=== PATIENT | female | born 1955 | race Caucasian/White ===

== ENCOUNTER → 2016-10-15 | Outpatient (CLI) | payer MEDICARE, BC ==
[~2016-10-15] MED LIST: /CELE20CA; /CELE20CA OR; ACET65TA; BACITAB3 PO; BUDE150T PO; BUPR15TA; CELE40TA PO; CELEXA; CIPR500T4 OR; CITA20TA4 PO; CITALOPRAM; COLA100C2; DESYREL PO; DEXILANT PO; IBUP600T26 PO; K-TA10TA2 PO; KEFL500C; LEVA500T PO; LORATADINE PO; MAALSUS; MACR100C3 PO; MAGN400T2 PO; METF1000 PO; METFORMIN PO; NEUR300C PO; NIAC250T3 PO; OMEP20TA PO; OMEP20TA7; PERC5TAB8; PHEN-239 PO; PREMARIVAG VAGINALLY; RANI150C PO; THERGRAN PO; TRAZ100T; TRAZ100T PO; TRAZ100T4 PO; TYLENOL #3; VENL100T PO; VICO5TAB; VICO5TAB OR; VITA50003 PO; VITA500T OR; VITAMIN D2 PO; ZANT150T; ZOFR4SOL PO; ZOLP5TAB PO
[2016-10-15 19:04] LABS: CALCIUM LEVEL 8.7 MG/DL (8.5-10.1); CREATININE FOR GFR 1.01 MG/DL (0.55-1.02); GLOMERULAR FILTRATION RATE 59.9 (>51); MAGNESIUM LEVEL 1.7 MG/DL (1.8-2.4); POTASSIUM SERUM 4.1 MEQ/L (3.5-5.1)
[2016-10-15 20:07] LABS: BASO # 0.1 K/mm3 (0.0-0.2); EOS # 0.4 K/mm3 (0.0-0.50); EOS % 5.1 % (0.0-3.0); LARGE UNSTAINED CELL # 0.1 K/mm3 (0.0-0.4); LARGE UNSTAINED CELL % 1.9 % (0.0-4.0); LYMPH # 2.3 K/mm3 (1.5-4.5); MEAN CORPUSCULAR HEMOGLOBIN 30.8 pg (27.0-33.0); MEAN CORPUSCULAR HGB CONC 33.7 g/dl (32.0-36.5); MEAN CORPUSCULAR VOLUME 91.3 fl (80.0-96.0); MONO # 0.5 K/mm3 (0.0-0.8); NEUTROPHILS # 3.8 K/mm3 (1.8-7.7); NEUTROPHILS % 53.9 % (36.0-66.0); PLATELET COUNT, AUTOMATED 281 k/mm3 (150-450); RED CELL DISTRIBUTION WIDTH 12.9 % (11.5-14.5)
== END ==
LOC: M WUC 11:06
PROVIDERS: ATTEND Nurse Practitioner Family
DX: E11.9 Type 2 diabetes mellitus without complications (principal); E83.42 Hypomagnesemia

== ENCOUNTER → 2016-10-30 | Day surgery (SDC) | payer MEDICARE, BC ==
[~2016-10-30] VITALS: Ht 170.2 cm; Wt 106.6 kg
[~2016-10-30] MED LIST changes: +EPINEPHrine 1MG/ML INJ 30ML MD-VIAL As Ordered ONE; +GLYCOPYRROLATE INJ 0.2 MG/ML 2 ML VIAL As Ordered ONE; +HYDROmorphone HCL 2 MG/ML 1ML VIAL (J1170) As Ordered ONE; +LABETALOL HCL 100 MG/20 ML VIAL As Ordered ONE; +LIDOCAINE 2% INJ 100 MG/5 ML SDV (FOR ANES.) As Ordered ONE; +LIDOCAINE W/EPINEPHRINE 1% 20ML VIAL As Ordered ONE; +LR 1,000 ML IV SCH; +METHYLENE BLUE 0.5% (5MG/ML) 10 ML AMP (PROVAYBLUE)(Q9968 PER 1MG) As Ordered ONE; +MIDAZOLAM INJ 2 MG/2 ML VIAL (J2250) As Ordered ONE; +NEOSTIGMINE 1MG/ML 5 ML SYRINGE (J2710) As Ordered ONE; +NORCO, ANEXSIA 5/325MG TABLET (HYDROcodone/ACETAMINOPHEN) As Ordered ONE; +NORCO, ANEXSIA 5/325MG TABLET (HYDROcodone/ACETAMINOPHEN) PO PRN; +ONDANSETRON 4MG/2ML VIAL (J2405) As Ordered ONE; +ONDANSETRON 4MG/2ML VIAL (J2405) IV PRN; +PHENYLephrine HCL 500 MCG/5 ML (100MCG/ML) SYRINGE (J2370) As Ordered ONE; +PROPOFOL 200 MG/20 ML VIAL As Ordered ONE; +ROCURONIUM BROMIDE 50 MG/5 ML VIAL As Ordered ONE; +SODIUM CHLORIDE 0.9% NASAL GEL 15MG (AYR) As Ordered ONE; +dexameTHASONE 4 MG/ML 1ML VIAL (J1100) IV ONE; +fentaNYL 100 MCG/2 ML INJECTION (J3010) As Ordered ONE; +fentaNYL 100 MCG/2 ML INJECTION (J3010) IV PRN
[2016-10-30 19:25] VITALS: BP 143/89
--- NOTE | 2016-11-13 06:06 | RO ---
DATE OF PROCEDURE: 10/30/2016 PREOPERATIVE DIAGNOSES: Chronic maxillary sinusitis, chronic ethmoid sinusitis, and deviated nasal septum. POSTOPERATIVE DIAGNOSES: Chronic maxillary sinusitis, chronic ethmoid sinusitis, and deviated nasal septum. PROCEDURE: 1. Endoscopic septoplasty. 2. Bilateral endoscopic maxillary antrostomy with soft tissue removal. 3. Bilateral anterior and posterior ethmoidectomy. 4. Implantation of bilateral Propel stents. SURGEON: Sha Rankin MD TRANSFER PROFESSOR: ANESTHESIA: General. CLINICAL PREAMBLE: This 60-year-old woman presented to the office with history of chronic maxillary sinusitis unresponsive to medical therapy. Complete opacification of the left maxillary sinus as well as mucosal thickening of the rest of the paranasal sinuses. There was deviation of the nasal turbinate to the left side as well. Management options including surgery listed above have been discussed. The patient understood and consented to the procedure. DESCRIPTION OF PROCEDURE: Patient was identified in preoperative holding and brought to the operating room in stable condition. In supine position on the operating table, patient received general anesthesia followed by orotracheal intubation without incident. Patient prepped and draped in the usual fashion for the procedure. Both eyes were lubricated and protected using Tegaderm. Pledgets soaked in 1:1000 epinephrine were inserted into each side of the nasal cavity. After a waiting period, both pledgets were removed using 0-degree nasal endoscope. Both sides of the nasal cavity were inspected. Deviation of the nasal septum was noted in the left nasal cavity. The deviated portion of the nasal septum was then infiltrated from the left side of the nasal cavity. Incision was made followed by raising the mucoperichondrial/mucoperiosteal flap on the deviated portion of the nasal septum. The deviated portion of the nasal septum was then successfully resected and the nasal septum returned to a midline position to afford surgical access. The anterior surfaces of the middle nasal turbinates were infiltrated with 1% lidocaine with 1:100,000 epinephrine. Both uncinates were also similarly injected as well. The right uncinate was first isolated and resected. The polypoid tissue around the right maxillary antrum was also resected using side-biting forceps. Right maxillary antrostomy was performed. The right ethmoidalis bulla was identified and resected using Blakesley forceps. Additional diseased anterior ethmoid air cells were then removed. Basal lamella was identified and penetrated. Posterior ethmoid air cells with polypoid degeneration were resected using the cutting forceps. Attention was turned to the left nasal cavity. The left uncinectomy was performed. The polypoid tissue around the left maxillary antrum was also resected. Copious amount of purulent discharge was encountered upon the resection of polypoid tissue. Left maxillary antrostomy was performed. The left maxillary sinus was then irrigated to display the purulent discharge material from the left maxillary sinus cavity. The left ethmoidalis bulla was taken down. The anterior ethmoid air cells were also resected. Basal lamella was identified and was penetrated with resection of the diseased posterior ethmoid air cells using cutting forceps. Complete hemostasis was observed upon placing cottonoid pledgets soaked in 1:1000 epinephrine into the middle nasal meatus. The Propel stents were then placed into left and right middle nasal meatus to allow medialization of both middle nasal turbinates. At the end of the procedure, sponge and instrument counts were correct. No complication was encountered. Estimated blood loss was approximately 50 mL. General anesthesia was reversed, and patient was extubated and brought to recovery room in stable condition. In recovery area, patient exhibited full and symmetrical extraocular motion with no evidence of periorbital ecchymosis.
== END | disposition home or self-care (01) ==
LOC: M SDC 08:47
PROVIDERS: ATTEND Otolaryngology
DX: J32.0 Chronic maxillary sinusitis (principal); J32.2 Chronic ethmoidal sinusitis; J34.2 Deviated nasal septum; E11.9 Type 2 diabetes mellitus without complications; K21.9 Gastro-esophageal reflux disease without esophagitis; L92.0 Granuloma annulare; F32.9 Major depressive disorder, single episode, unspecified; G47.30 Sleep apnea, unspecified; E83.42 Hypomagnesemia; Z88.5 Allergy status to narcotic agent; Z79.899 Other long term (current) drug therapy; Z79.84 Long term (current) use of oral hypoglycemic drugs
CPT/HCPCS: 30520; 31255; 31267; 88300; 88305; C2625; J1100; J1170; J2250; J2370; J2405; J2710; J3010; Q9968

== ENCOUNTER 2016-11-15 22:52 | Emergency (ER) | payer MEDICARE, BC ==
[~2016-11-15] VITALS: Ht 172.7 cm; Wt 108.9 kg
[~2016-11-15 22:52] MED LIST changes: -EPINEPHrine 1MG/ML INJ 30ML MD-VIAL As Ordered ONE; -GLYCOPYRROLATE INJ 0.2 MG/ML 2 ML VIAL As Ordered ONE; -HYDROmorphone HCL 2 MG/ML 1ML VIAL (J1170) As Ordered ONE; -LABETALOL HCL 100 MG/20 ML VIAL As Ordered ONE; -LIDOCAINE 2% INJ 100 MG/5 ML SDV (FOR ANES.) As Ordered ONE; -LIDOCAINE W/EPINEPHRINE 1% 20ML VIAL As Ordered ONE; -LR 1,000 ML IV SCH; -METHYLENE BLUE 0.5% (5MG/ML) 10 ML AMP (PROVAYBLUE)(Q9968 PER 1MG) As Ordered ONE; -MIDAZOLAM INJ 2 MG/2 ML VIAL (J2250) As Ordered ONE; -NEOSTIGMINE 1MG/ML 5 ML SYRINGE (J2710) As Ordered ONE; -NORCO, ANEXSIA 5/325MG TABLET (HYDROcodone/ACETAMINOPHEN) As Ordered ONE; -NORCO, ANEXSIA 5/325MG TABLET (HYDROcodone/ACETAMINOPHEN) PO PRN; -ONDANSETRON 4MG/2ML VIAL (J2405) As Ordered ONE; -ONDANSETRON 4MG/2ML VIAL (J2405) IV PRN; -PHENYLephrine HCL 500 MCG/5 ML (100MCG/ML) SYRINGE (J2370) As Ordered ONE; -PROPOFOL 200 MG/20 ML VIAL As Ordered ONE; -ROCURONIUM BROMIDE 50 MG/5 ML VIAL As Ordered ONE; -SODIUM CHLORIDE 0.9% NASAL GEL 15MG (AYR) As Ordered ONE; -dexameTHASONE 4 MG/ML 1ML VIAL (J1100) IV ONE; -fentaNYL 100 MCG/2 ML INJECTION (J3010) As Ordered ONE; -fentaNYL 100 MCG/2 ML INJECTION (J3010) IV PRN
[2016-11-15] MEDS ORDERED: LEVO500T32 PO (23:09)
[2016-11-16] MEDS ORDERED: AUGMENTIN 875 MG TAB PO ONE (05:00)
[2016-11-16] MEDS ORDERED: AUGM500T34 PO (05:00)
[2016-11-16 05:23] VITALS: BP 133/85
== END 2016-11-16 05:29 | disposition home or self-care (01) ==
LOC: M ED 23:50
DX: L02.03 Carbuncle of face (principal); E11.9 Type 2 diabetes mellitus without complications; K21.9 Gastro-esophageal reflux disease without esophagitis; F32.9 Major depressive disorder, single episode, unspecified; Z79.899 Other long term (current) drug therapy; Z79.84 Long term (current) use of oral hypoglycemic drugs; Z79.2 Long term (current) use of antibiotics; Z88.8 Allergy status to other drugs, medicaments and biological substances; Z88.5 Allergy status to narcotic agent

== ENCOUNTER → 2016-11-23 | Outpatient (REF) | payer MEDICARE, BC ==
[~2016-11-23] MED LIST changes: +AUGM500T34 PO; +LEVO500T32 PO
== END ==
LOC: EEVIPCON 12:13 → M LAB REF 12:13
PROVIDERS: ATTEND Otolaryngology
DX: J32.0 Chronic maxillary sinusitis (principal)

== ENCOUNTER → 2016-12-19 | Outpatient (CLI) | payer MEDICARE, BC ==
[2016-12-19 17:52] LABS: BASO # 0.1 K/mm3 (0.0-0.2); BASO % 0.9 % (0.0-1.0); EOS # 0.6 K/mm3 (0.0-0.50); EOS % 4.9 % (0.0-3.0); LARGE UNSTAINED CELL # 0.2 K/mm3 (0.0-0.4); LARGE UNSTAINED CELL % 1.9 % (0.0-4.0); LYMPH # 3.5 K/mm3 (1.5-4.5); LYMPH % 29.6 % (24.0-44.0); MEAN CORPUSCULAR HEMOGLOBIN 29.8 pg (27.0-33.0); MEAN CORPUSCULAR VOLUME 90.4 fl (80.0-96.0); MONO # 0.6 K/mm3 (0.0-0.8); MONO % 5.4 % (0.0-5.0); NEUTROPHILS # 6.3 K/mm3 (1.8-7.7); NEUTROPHILS % 57.2 % (36.0-66.0); PLATELET COUNT, AUTOMATED 280 k/mm3 (150-450); RED CELL DISTRIBUTION WIDTH 13.2 % (11.5-14.5)
[2016-12-19 18:16] LABS: ALBUMIN 3.6 GM/DL (3.2-5.2); ALBUMIN/GLOBULIN RATIO 1.09 (1.00-1.93); ALKALINE PHOSPHATASE 89 U/L (45-117); ALT/SGPT 24 U/L (12-78); ANION GAP 10 MEQ/L (8-16); AST/SGOT 15 U/L (15-37); BILIRUBIN,TOTAL 0.5 MG/DL (0.2-1.0); BLOOD UREA NITROGEN 15 MG/DL (7-18); CALCIUM LEVEL 8.8 MG/DL (8.5-10.1); CARBON DIOXIDE LEVEL 25 MEQ/L (21-32); CHLORIDE LEVEL 108 MEQ/L (98-107); CREATININE FOR GFR 0.97 MG/DL (0.55-1.02); GLOMERULAR FILTRATION RATE > 60.0 (>51); GLUCOSE, FASTING 82 MG/DL (70-105); MAGNESIUM LEVEL 1.9 MG/DL (1.8-2.4); POTASSIUM SERUM 4.2 MEQ/L (3.5-5.1); SODIUM LEVEL 143 MEQ/L (136-145); TOTAL PROTEIN 6.9 GM/DL (6.4-8.2)
== END ==
LOC: M WUC 13:44
PROVIDERS: ATTEND Nurse Practitioner Family
DX: K21.9 Gastro-esophageal reflux disease without esophagitis (principal); E83.42 Hypomagnesemia; E11.9 Type 2 diabetes mellitus without complications

== ENCOUNTER → 2017-02-12 | Outpatient (REF) | payer MEDICARE, BC ==
[~2017-02-12] MED LIST changes: +BACITAB PO; -BACITAB3 PO; +FLON1SPR; +IBUP-1022 PO; -IBUP600T26 PO; +LEVA1TAB2 PO; -LEVA500T PO; +LEVO500T3 PO; -LEVO500T32 PO; -MACR100C3 PO; +MACR100C43 PO; -METF1000 PO; +METF10004 PO; +TRAZ-136 PO; -TRAZ100T4 PO; +VITA1CAP40 PO; -VITA50003 PO; +ZOFR4TAB3 PO
[2017-02-12 20:19] LABS: BASO # 0.1 K/mm3 (0.0-0.2); BASO % 0.9 % (0.0-1.0); EOS # 0.4 K/mm3 (0.0-0.50); EOS % 4.6 % (0.0-3.0); LARGE UNSTAINED CELL # 0.2 K/mm3 (0.0-0.4); LYMPH # 2.9 K/mm3 (1.5-4.5); LYMPH % 29.3 % (24.0-44.0); MEAN CORPUSCULAR HEMOGLOBIN 29.9 pg (27.0-33.0); MEAN CORPUSCULAR VOLUME 90.7 fl (80.0-96.0); MONO # 0.4 K/mm3 (0.0-0.8); MONO % 4.4 % (0.0-5.0); NEUTROPHILS # 5.5 K/mm3 (1.8-7.7); NEUTROPHILS % 58.8 % (36.0-66.0); PLATELET COUNT, AUTOMATED 303 k/mm3 (150-450); RED CELL DISTRIBUTION WIDTH 12.5 % (11.5-14.5); WHITE BLOOD COUNT 9.4 K/mm3 (4.0-10.0)
[2017-02-12 21:11] LABS: ALBUMIN 3.5 GM/DL (3.2-5.2); BILIRUBIN,TOTAL 0.5 MG/DL (0.2-1.0); CREATININE FOR GFR 1.05 MG/DL (0.55-1.02); GLOMERULAR FILTRATION RATE 57.1 (>51)
[2017-02-15 00:06] LABS: Lyme Disease IgG/IgM Antibodie <0.91 ISR (0.00-0.90); Lyme Disease IgM Ab Quantitati <0.80 index (0.00-0.79)
== END ==
LOC: M LABDRWAD 08:57
PROVIDERS: ATTEND Physician Assistant Medical
DX: R42 Dizziness and giddiness (principal); Z79.899 Other long term (current) drug therapy

== ENCOUNTER → 2017-03-08 | Outpatient (CLI) | payer MEDICARE, BC ==
--- NOTE | 2017-03-08 15:46 | REP ---
DIGITAL BILATERAL SCREENING MAMMOGRAM: 03/08/2017. COMPARISON: Diagnostic right mammogram 03/14/2016, screening mammogram 03/05/2016, 03/01/2015, 01/26, 12/16 HISTORY: Screening examination. She has no current complaint, personal or family history of breast cancer. Last year's screening examination showed a group of microcalcifications confirmed on diagnostic mammography in the anterior right breast upper outer quadrant. These were recommended for biopsy. No biopsy has been performed. The patient has no current complaints. FINDINGS: Standard two view mammography is performed. There are scattered fibroglandular elements in a pattern and distribution similar to the previous studies. There are a few coarse benign calcifications and some arterial calcifications in each breast, also unchanged. The small group of microcalcifications in the upper outer quadrant right breast are not reproduced on today's study. They were visible on both the screening and diagnostic previously. Some minor tissue asymmetry centrally in the anterior one-third of the breast appears to be superimposition based on previous studies from MLO projections, but the CC view does have this change. No dominant masses, architectural distortion, new clusters of microcalcification or other secondary signs of malignancy. IMPRESSION: ACR category 0, incomplete, needs additional imaging evaluation. The patient should return for spot magnification of the retroareolar zone of the right breast at noon position. Should be evaluated both for the tissue asymmetry and possible microcalcifications, which could not be seen on standard views today, but were evident on last year's study. There were no other changes or findings. BI-RADS/ACR category 0 mammogram. Incomplete. Additional imaging and/or prior images are needed before a final assessment can be assigned. This mammogram was interpreted with the aid of an FDA-approved computer-aided detection system. A. Negative x-ray reports should not delay biopsy if a dominant or clinically suspicious mass is present. B. Four to eight percent of cancers are not identified by x-ray. C. Adenosis and dense breasts may obscure an underlying neoplasm The patient states she/he has not had a clinical breast exam in over a year. The patient letter being requested is M0. Signed by Junior Maldonado MD 03/08/2017 10:23 P
== END ==
LOC: M RAD 10:29
PROVIDERS: ATTEND Nurse Practitioner Family
DX: Z12.31 Encounter for screening mammogram for malignant neoplasm of breast (principal)

== ENCOUNTER 2017-03-17 14:03 | Emergency (ER) | payer MEDICARE, BC ==
[~2017-03-17] VITALS: Ht 172.7 cm; Wt 105.0 kg
[~2017-03-17 14:03] MED LIST changes: -FLON1SPR; -ZOFR4TAB3 PO
[2017-03-17] MEDS ORDERED: FLON1SPR (14:22)
[2017-03-17] MEDS ORDERED: ONDANSETRON 4MG/2ML VIAL (J2405) IV ONE (14:45)
[2017-03-17] MEDS ORDERED: KETOROLAC 30 MG/ML VIAL (J1885) IV ONE (14:45)
[2017-03-17] MEDS ORDERED: PANTOPRAZOLE 40MG INJ (PROTONIX) (C9113) IV ONE (14:45)
[2017-03-17] MEDS ORDERED: NS 1,000 ML IV ONE (14:45)
[2017-03-17 15:21] LABS: INR 1.03
[2017-03-17 15:24] LABS: BASO # 0.1 K/mm3 (0.0-0.2); BASO % 0.8 % (0.0-1.0); EOS # 0.2 K/mm3 (0.0-0.50); EOS % 1.3 % (0.0-3.0); LARGE UNSTAINED CELL # 0.4 K/mm3 (0.0-0.4); LARGE UNSTAINED CELL % 2.8 % (0.0-4.0); LYMPH % 26.2 % (24.0-44.0); MEAN CORPUSCULAR HEMOGLOBIN 30.2 pg (27.0-33.0); MEAN CORPUSCULAR HGB CONC 34.3 g/dl (32.0-36.5); MEAN CORPUSCULAR VOLUME 88.1 fl (80.0-96.0); MONO # 0.8 K/mm3 (0.0-0.8); MONO % 5.9 % (0.0-5.0); NEUTROPHILS # 8.6 K/mm3 (1.8-7.7); PLATELET COUNT, AUTOMATED 386 k/mm3 (150-450); RED CELL DISTRIBUTION WIDTH 13.2 % (11.5-14.5); WHITE BLOOD COUNT 13.6 K/mm3 (4.0-10.0)
[2017-03-17 15:58] LABS: ALBUMIN 4.2 GM/DL (3.2-5.2); BILIRUBIN,DIRECT 0.2 MG/DL (0.0-0.2); BILIRUBIN,TOTAL 0.7 MG/DL (0.2-1.0); CALCIUM LEVEL 9.7 MG/DL (8.5-10.1); CREATININE FOR GFR 1.5 MG/DL (0.55-1.02); GLOMERULAR FILTRATION RATE 37.8 (>51); POTASSIUM SERUM 4.4 MEQ/L (3.5-5.1); TOTAL PROTEIN 8.4 GM/DL (6.4-8.2)
--- NOTE | 2017-03-17 16:18 | REP ---
Acute abdominal series three views including PA chest and supine upright abdomen: PA chest: Comparison is 10/01/2012. The lung good are clear. Cardiac size is normal. The michael, mediastinum, and bony thorax are unremarkable. There are surgical clips in the mid upper abdomen. I suspect there is a hiatal hernia. There is no free subdiaphragmatic air. Impression: Essentially negative PA chest. Possible hiatal hernia. Abdomen, supine and upright views: The bowel gas pattern is normal. There are surgical clips in the upper abdomen and in the pelvis. There are multiple matched retainer is. There is a right hip arthroplasty. The skeletal structures and soft tissues are otherwise unremarkable. Impression: Normal bowel gas pattern Signed by Morgan Booth MD 03/17/2017 04:10 P
[2017-03-17] MEDS ORDERED: ZOFR4TAB3 PO (16:36)
[2017-03-17 16:41] VITALS: BP 126/80
== END 2017-03-17 17:18 | disposition home or self-care (01) ==
LOC: M ED 14:03
DX: K52.9 Noninfective gastroenteritis and colitis, unspecified (principal); E11.9 Type 2 diabetes mellitus without complications; E07.9 Disorder of thyroid, unspecified; F32.9 Major depressive disorder, single episode, unspecified; Z87.442 Personal history of urinary calculi; Z90.49 Acquired absence of other specified parts of digestive tract; Z79.899 Other long term (current) drug therapy; Z88.5 Allergy status to narcotic agent; Z88.8 Allergy status to other drugs, medicaments and biological substances
CPT/HCPCS: 74022; 80048; 80076; 83690; 85025; 85610; 96374; 96375; 99283; C9113; J1885; J2405

== ENCOUNTER → 2017-04-16 | Outpatient (CLI) | payer MEDICARE, BC ==
[~2017-04-16] MED LIST changes: +FLON1SPR; +ZOFR4TAB3 PO
--- NOTE | 2017-04-16 15:21 | REP ---
DIGITAL DIAGNOSTIC UNILATERAL RIGHT BREAST MAMMOGRAM WITH CAD: HISTORY: Screening and diagnostic mammography from March 2016 was read as BIRADS category 4 because of a microcalcific grouping in the right breast at 12 o'clock position for which stereotactic biopsy had been recommended. No biopsy was done. Repeat screening mammography in March 2017 did not show the microcalcifications but did show a tissue asymmetry and diagnostic imaging was recommended. The patient is actually referred on this date for stereotactic needle biopsy. In addition, comparison mammography is reviewed from March 01, 2015. MAMMOGRAPHIC FINDINGS: Magnified focal spot compression CC, true ML, and MLO views are obtained. The previously noted micro calcific grouping is no longer apparent. There are no suspicious microcalcifications. The tissue asymmetry at the 12 o'clock position of the right breast is felt to be unchanged from 2015 and not suspicious. No suspicious mammographic finding. IMPRESSION: BIRADS category 2 benign right breast imaging. No target for needle biopsy at this juncture. Repeat bilateral screening mammography recommended 1 year. BI-RADS/ACR category 2 mammogram. Benign finding(s). Routine annual screening mammography (for women over age 40). This mammogram was interpreted with the aid of an FDA-approved computer-aided detection system. The patient states that she/he has not had a clinical breast exam in over a year. The patient letter being requested is M1. Signed by Checo Bush MD 04/16/2017 03:44 P
== END ==
LOC: M RAD 12:04
PROVIDERS: ATTEND Surgery
DX: R92.0 Mammographic microcalcification found on diagnostic imaging of breast (principal)

== ENCOUNTER → 2017-04-22 | Outpatient (CLI) | payer MEDICARE, BC ==
[2017-04-22 17:20] LABS: ANION GAP 12 MEQ/L (8-16); BLOOD UREA NITROGEN 12 MG/DL (7-18); CALCIUM LEVEL 9.1 MG/DL (8.5-10.1); CARBON DIOXIDE LEVEL 23 MEQ/L (21-32); CHLORIDE LEVEL 108 MEQ/L (98-107); CREATININE FOR GFR 0.88 MG/DL (0.55-1.02); GLOMERULAR FILTRATION RATE > 60.0 (>51); GLUCOSE, FASTING 90 MG/DL (70-105); MAGNESIUM LEVEL 1.8 MG/DL (1.8-2.4); POTASSIUM SERUM 4.2 MEQ/L (3.5-5.1); SODIUM LEVEL 143 MEQ/L (136-145)
== END ==
LOC: M WUC 11:40
PROVIDERS: ATTEND Nurse Practitioner Family
DX: E55.9 Vitamin D deficiency, unspecified (principal); E11.9 Type 2 diabetes mellitus without complications

== ENCOUNTER → 2017-05-08 | Outpatient (CLI) | payer MEDICARE, BC ==
--- NOTE | 2017-05-08 13:41 | REP ---
CT of the abdomen and pelvis without IV or bowel contrast: Comparison is 02/03/2015. There is a nonobstructive left renal calculus at the mid pole anteriorly measuring 7 mm, not significantly changed from the comparison study. There are no other renal calculi on the left on the right. There is no hydronephrosis. There are no ureteral calculi. The the patient has a cholecystectomy, appendectomy, hysterectomy and ileostomy. There is abdominal wall mesh in the right lower quadrant inferior to the ileostomy. There is no hernia. There are numerous presacral surgical clips. The visualized lung good are unremarkable. There is a hiatal hernia. The unenhanced hepatic parenchyma, pancreas and spleen are unremarkable. There are surgical clips in the gallbladder fossa. The adrenals, abdominal aorta and bowel loops are unremarkable. There is no bowel distension. No ascites. Pelvis: The bladder is nondistended and cannot be evaluated. The vaginal cuff and adnexa are obscured from beam hardening artifact arising from the presacral surgical clips and the right hip arthroplasty. Impression: There are no is a nonobstructive left renal calculus. There are no ureteral calculi. There is no hydronephrosis. The bladder is collapsed and obscured from beam hardening artifact and cannot be evaluated. There is a right lower quadrant ileostomy with abdominal wall mesh inferior to the stoma. No hernia. No bowel distension or obstruction. There is a hiatal hernia. Signed by Morgan Booth MD 05/08/2017 01:31 P
== END ==
LOC: M RAD 13:03
PROVIDERS: ATTEND Physician Assistant
DX: N20.0 Calculus of kidney (principal); K44.9 Diaphragmatic hernia without obstruction or gangrene; R31.0 Gross hematuria; R10.30 Lower abdominal pain, unspecified; Z93.2 Ileostomy status; Z90.49 Acquired absence of other specified parts of digestive tract; Z90.89 Acquired absence of other organs

== ENCOUNTER → 2017-05-08 | Outpatient (REF) | payer MEDICARE, BC ==
[2017-05-08 13:21] LABS: BASO # 0.1 10^3/uL (0.0-0.2); BASO % 0.7 % (0.0-1.0); EOS # 0.3 10^3/uL (0.0-0.50); EOS % 2.4 % (0.0-3.0); IMMATURE GRANULOCYTE % 0.4 % (0-0); LYMPH # 2.4 10^3/uL (1.5-4.5); LYMPH % 17.4 % (24.0-44.0); MEAN CORPUSCULAR HEMOGLOBIN 29.3 pg (27.0-33.0); MEAN CORPUSCULAR HGB CONC 33.1 g/dl (32.0-36.5); MEAN CORPUSCULAR VOLUME 88.6 fl (80.0-96.0); MONO % 7.1 % (0.0-5.0); NEUTROPHILS # 9.9 10^3/uL (1.8-7.7); PLATELET COUNT, AUTOMATED 301 10^3/uL (150-450); RED CELL DISTRIBUTION WIDTH 13.1 % (11.5-14.5); WHITE BLOOD COUNT 13.7 10^3/uL (4.0-10.0)
[2017-05-08 13:26] LABS: ADD MANUAL DIFFER NO; DIFF SLIDE NUMBER 242
[2017-05-08 13:53] LABS: ALBUMIN 3.6 GM/DL (3.2-5.2); ALKALINE PHOSPHATASE 89 U/L (45-117); ALT/SGPT 22 U/L (12-78); ANION GAP 10 MEQ/L (8-16); AST/SGOT 9 U/L (15-37); BILIRUBIN,TOTAL 0.8 MG/DL (0.2-1.0); BLOOD UREA NITROGEN 11 MG/DL (7-18); CALCIUM LEVEL 9.6 MG/DL (8.5-10.1); CARBON DIOXIDE LEVEL 25 MEQ/L (21-32); CHLORIDE LEVEL 105 MEQ/L (98-107); CREATININE FOR GFR 0.91 MG/DL (0.55-1.02); GLOMERULAR FILTRATION RATE > 60.0 (>51); GLUCOSE, FASTING 119 MG/DL (70-105); POTASSIUM SERUM 4.5 MEQ/L (3.5-5.1); SODIUM LEVEL 140 MEQ/L (136-145); TOTAL PROTEIN 7.2 GM/DL (6.4-8.2)
== END ==
LOC: M LAB REF 13:01
PROVIDERS: ATTEND Physician Assistant
DX: R31.0 Gross hematuria (principal); R10.30 Lower abdominal pain, unspecified

== ENCOUNTER → 2017-08-01 | Outpatient (CLI) | payer BC, MEDICARE ==
[2017-08-01 12:18] LABS: WHITE BLOOD COUNT 9.8 10^3/uL (4.0-10.0)
[2017-08-01 12:19] LABS: LYMPH % 29.4 % (24.0-44.0); MEAN CORPUSCULAR HEMOGLOBIN 29.2 pg (27.0-33.0); MEAN CORPUSCULAR HGB CONC 33.5 g/dl (32.0-36.5); MEAN CORPUSCULAR VOLUME 87.2 fl (80.0-96.0); MONO % 5.4 % (0.0-5.0); NEUTROPHILS % 60.7 % (36.0-66.0); PLATELET COUNT, AUTOMATED 331 10^3/uL (150-450); RED CELL DISTRIBUTION WIDTH 12.4 % (11.5-14.5)
[2017-08-01 12:20] LABS: BASO # 0.1 10^3/uL (0.0-0.2); BASO % 0.7 % (0.0-1.0); EOS # 0.3 10^3/uL (0.0-0.50); EOS % 3.5 % (0.0-3.0); IMMATURE GRANULOCYTE % 0.3 % (0-0); LYMPH # 2.9 10^3/uL (1.5-4.5); MONO # 0.5 10^3/uL (0.0-0.8)
[2017-08-01 13:41] LABS: ALBUMIN 3.6 GM/DL (3.2-5.2); ALBUMIN/GLOBULIN RATIO 0.95 (1.00-1.93); ALKALINE PHOSPHATASE 90 U/L (45-117); ALT/SGPT 30 U/L (12-78); ANION GAP 13 MEQ/L (8-16); AST/SGOT 31 U/L (7-37); BILIRUBIN,TOTAL 0.6 MG/DL (0.2-1.0); BLOOD UREA NITROGEN 13 MG/DL (7-18); CALCIUM LEVEL 9.1 MG/DL (8.5-10.1); CARBON DIOXIDE LEVEL 22 MEQ/L (21-32); CHLORIDE LEVEL 108 MEQ/L (98-107); CREATININE FOR GFR 1.03 MG/DL (0.55-1.02); FREE T4 0.99 NG/DL (0.76-1.46); GLOMERULAR FILTRATION RATE 58.4 (>51); GLUCOSE, FASTING 122 MG/DL (70-105); POTASSIUM SERUM 4.2 MEQ/L (3.5-5.1); SODIUM LEVEL 143 MEQ/L (136-145); TOTAL PROTEIN 7.4 GM/DL (6.4-8.2)
== END ==
LOC: M LAB 11:34
DX: R53.83 Other fatigue (principal)
CPT/HCPCS: 83540

== ENCOUNTER → 2017-09-09 | Outpatient (CLI) | payer BC, MEDICARE ==
[2017-09-09 11:19] LABS: CREATININE FOR GFR 1.09 MG/DL (0.55-1.30); GLOMERULAR FILTRATION RATE 54.7 (>51)
[2017-09-09 11:19] LABS: BLOOD UREA NITROGEN 16 MG/DL (7-18)
== END ==
LOC: M LAB 09:57
DX: H90.3 Sensorineural hearing loss, bilateral (principal)
CPT/HCPCS: 82565

== ENCOUNTER 2017-11-20 15:52 | Emergency (ER) | payer MEDICARE, BC ==
[2017-11-20] MEDS: ASPIRIN 81 MG CHEW TABLET PO (16:55)
[2017-11-20 17:04] LABS: BASO # 0.1 10^3/uL (0.0-0.2); BASO % 0.8 % (0.0-1.0); EOS # 0.4 10^3/uL (0.0-0.50); EOS % 4.1 % (0.0-3.0); HEMATOCRIT 40.5 % (36.0-47.0); HEMOGLOBIN 13.7 g/dl (12.0-15.5); IMMATURE GRANULOCYTE % 0.5 % (0-3.0); LYMPH # 3.8 10^3/uL (1.5-4.5); LYMPH % 35.3 % (24.0-44.0); MEAN CORPUSCULAR HEMOGLOBIN 29.7 pg (27.0-33.0); MEAN CORPUSCULAR HGB CONC 33.8 g/dl (32.0-36.5); MEAN CORPUSCULAR VOLUME 87.9 fl (80.0-96.0); MONO # 0.7 10^3/uL (0.0-0.8); MONO % 6.2 % (0.0-5.0); NEUTROPHILS # 5.6 10^3/uL (1.8-7.7); NEUTROPHILS % 53.1 % (36.0-66.0); PLATELET COUNT, AUTOMATED 287 10^3/uL (150-450); RED BLOOD COUNT 4.61 10^6/uL (4.00-5.40); RED CELL DISTRIBUTION WIDTH 12.7 % (11.5-14.5); WHITE BLOOD COUNT 10.6 10^3/uL (4.0-10.0)
[2017-11-20 17:19] LABS: ALBUMIN 3.6 GM/DL (3.2-5.2); ALBUMIN/GLOBULIN RATIO 1.06 (1.00-1.93); ALKALINE PHOSPHATASE 84 U/L (45-117); ALT/SGPT 25 U/L (12-78); ANION GAP 8 MEQ/L (8-16); AST/SGOT 27 U/L (7-37); BILIRUBIN,DIRECT 0.1 MG/DL (0.0-0.2); BILIRUBIN,TOTAL 0.4 MG/DL (0.2-1.0); BLOOD UREA NITROGEN 13 MG/DL (7-18); CALCIUM LEVEL 8.5 MG/DL (8.5-10.1); CARBON DIOXIDE LEVEL 24 MEQ/L (21-32); CHLORIDE LEVEL 109 MEQ/L (98-107); CPK CREATINE PHOSPHOKINASE 97 U/L (26-192); CREATININE FOR GFR 0.97 MG/DL (0.55-1.30); GLOMERULAR FILTRATION RATE > 60.0 (>51); GLUCOSE, FASTING 99 MG/DL (70-100); POTASSIUM SERUM 3.9 MEQ/L (3.5-5.1); SODIUM LEVEL 141 MEQ/L (136-145); TROPONIN I < 0.02 NG/ML (< 0.10)
[2017-11-20 17:24] LABS: INR 0.92; PROTHROMBIN TIME 12.4 SECONDS (12.4-14.5)
[2017-11-20 17:25] LABS: CK-MB VALUE MASS 1.6 NG/ML (<3.6); MB/CK RELATIVE INDEX 1.64 (< OR =4); NT-PRO BNP 42 PG/ML (<125); PARTIAL THROMBOPLASTIN TIME 24.7 SECONDS (26.8-37.9); THYROID STIMULATING HORMONE 0.996 uIU/ML (0.358-3.740)
[2017-11-20 20:04] LABS: CPK CREATINE PHOSPHOKINASE 94 U/L (26-192); MB/CK RELATIVE INDEX 1.06 (< OR =4); TROPONIN I < 0.02 NG/ML (< 0.10)
== END 2017-11-20 20:29 | disposition home or self-care (01) ==
LOC: M ED 15:52
DX: R07.89 Other chest pain (principal); R06.00 Dyspnea, unspecified; M25.512 Pain in left shoulder; R68.84 Jaw pain; R20.2 Paresthesia of skin; I44.4 Left anterior fascicular block; E11.40 Type 2 diabetes mellitus with diabetic neuropathy, unspecified; G47.33 Obstructive sleep apnea (adult) (pediatric); F32.9 Major depressive disorder, single episode, unspecified; Z82.49 Family history of ischemic heart disease and other diseases of the circulatory system; Z79.899 Other long term (current) drug therapy; Z79.84 Long term (current) use of oral hypoglycemic drugs; Z88.8 Allergy status to other drugs, medicaments and biological substances; Z88.5 Allergy status to narcotic agent
CPT/HCPCS: 71045

== ENCOUNTER → 2017-12-23 | Outpatient (CLI) | payer MEDICARE, BC ==
[2017-12-23 17:11] LABS: BASO # 0.1 10^3/uL (0.0-0.2); BASO % 0.8 % (0.0-1.0); EOS # 0.5 10^3/uL (0.0-0.50); EOS % 4.7 % (0.0-3.0); HEMATOCRIT 39.9 % (36.0-47.0); HEMOGLOBIN 13.4 g/dl (12.0-15.5); IMMATURE GRANULOCYTE % 0.5 % (0-3.0); LYMPH # 3.4 10^3/uL (1.5-4.5); LYMPH % 34.3 % (24.0-44.0); MEAN CORPUSCULAR HEMOGLOBIN 29.6 pg (27.0-33.0); MEAN CORPUSCULAR HGB CONC 33.6 g/dl (32.0-36.5); MEAN CORPUSCULAR VOLUME 88.1 fl (80.0-96.0); MONO # 0.7 10^3/uL (0.0-0.8); MONO % 6.6 % (0.0-5.0); NEUTROPHILS # 5.2 10^3/uL (1.8-7.7); NEUTROPHILS % 53.1 % (36.0-66.0); PLATELET COUNT, AUTOMATED 277 10^3/uL (150-450); RED BLOOD COUNT 4.53 10^6/uL (4.00-5.40); RED CELL DISTRIBUTION WIDTH 12.1 % (11.5-14.5); WHITE BLOOD COUNT 9.9 10^3/uL (4.0-10.0)
[2017-12-23 17:24] LABS: ALBUMIN 3.6 GM/DL (3.2-5.2); ALBUMIN/GLOBULIN RATIO 1.09 (1.00-1.93); ALKALINE PHOSPHATASE 81 U/L (45-117); ALT/SGPT 27 U/L (12-78); ANION GAP 7 MEQ/L (8-16); AST/SGOT 21 U/L (7-37); BILIRUBIN,TOTAL 0.6 MG/DL (0.2-1.0); BLOOD UREA NITROGEN 12 MG/DL (7-18); CALCIUM LEVEL 8.9 MG/DL (8.8-10.2); CARBON DIOXIDE LEVEL 28 MEQ/L (21-32); CHLORIDE LEVEL 108 MEQ/L (98-107); CREATININE FOR GFR 0.87 MG/DL (0.55-1.30); GLOMERULAR FILTRATION RATE > 60.0 (>45); GLUCOSE, FASTING 97 MG/DL (70-100); MAGNESIUM LEVEL 1.9 MG/DL (1.8-2.4); POTASSIUM SERUM 4.3 MEQ/L (3.5-5.1); SODIUM LEVEL 143 MEQ/L (136-145); TOTAL PROTEIN 6.9 GM/DL (6.4-8.2)
== END ==
LOC: M WUC 13:14
DX: E83.42 Hypomagnesemia (principal); K21.9 Gastro-esophageal reflux disease without esophagitis; E55.9 Vitamin D deficiency, unspecified; E11.9 Type 2 diabetes mellitus without complications
CPT/HCPCS: 83735

== ENCOUNTER → 2018-01-30 | Outpatient (CLI) | payer MEDICARE, BC | LOC: M SLEEP 19:33 | DX: G47.33 Obstructive sleep apnea (adult) (pediatric) (principal) | CPT/HCPCS: 95811 ==

== ENCOUNTER → 2018-04-23 | Outpatient (CLI) | payer MEDICARE, BC ==
[2018-04-23 14:39] LABS: BASO # 0.1 10^3/uL (0.0-0.2); BASO % 0.9 % (0.0-1.0); EOS # 0.6 10^3/uL (0.0-0.50); EOS % 4.9 % (0.0-3.0); HEMATOCRIT 42.6 % (36.0-47.0); HEMOGLOBIN 14.3 g/dl (12.0-15.5); IMMATURE GRANULOCYTE % 0.4 % (0-3.0); LYMPH # 3.5 10^3/uL (1.5-4.5); LYMPH % 31.2 % (24.0-44.0); MEAN CORPUSCULAR HGB CONC 33.6 g/dl (32.0-36.5); MEAN CORPUSCULAR VOLUME 89.3 fl (80.0-96.0); MONO # 0.8 10^3/uL (0.0-0.8); MONO % 6.9 % (0.0-5.0); NEUTROPHILS # 6.3 10^3/uL (1.8-7.7); NEUTROPHILS % 55.7 % (36.0-66.0); PLATELET COUNT, AUTOMATED 295 10^3/uL (150-450); RED BLOOD COUNT 4.77 10^6/uL (4.00-5.40); WHITE BLOOD COUNT 11.3 10^3/uL (4.0-10.0)
[2018-04-23 15:07] LABS: MAGNESIUM LEVEL 1.9 MG/DL (1.8-2.4)
[2018-04-23 15:31] LABS: TOTAL 25(OH) VITAMIN D 51.3 NG/ML (30.0-100.0)
[2018-04-23 16:02] LABS: ESTIMATED AVERAGE GLUCOSE 143 MG/DL (60-110); HEMOGLOBIN A1c 6.6 %
== END ==
LOC: M LAB 13:53
DX: E11.9 Type 2 diabetes mellitus without complications (principal); K21.9 Gastro-esophageal reflux disease without esophagitis; E55.9 Vitamin D deficiency, unspecified
CPT/HCPCS: 83735

== ENCOUNTER → 2018-05-06 | Outpatient (CLI) | payer MEDICARE, BC | LOC: M WHC 12:58 | DX: Z12.31 Encounter for screening mammogram for malignant neoplasm of breast (principal) | CPT/HCPCS: 77067 ==

== ENCOUNTER → 2018-10-21 | Outpatient (CLI) | payer MEDICARE, BC ==
[~2018-10-21] MED LIST changes: +NITR0.4S14 SL; +OMEP40CA2; -TRAZ-136 PO; +TRAZ-163 PO; -VITA1CAP40 PO; +VITA50005 PO; +ZOFR4TAB14 PO; -ZOFR4TAB3 PO; +[UNRECOGNIZED DRUG - CODE] PO
[2018-10-21 15:50] LABS: BASO # 0.1 10^3/uL (0.0-0.2); BASO % 0.9 % (0.0-1.0); EOS # 0.6 10^3/uL (0.0-0.50); EOS % 5.5 % (0.0-3.0); HEMATOCRIT 43.5 % (36.0-47.0); HEMOGLOBIN 14.4 g/dl (12.0-15.5); LYMPH # 3.4 10^3/uL (1.5-4.5); LYMPH % 31.5 % (24.0-44.0); MEAN CORPUSCULAR HEMOGLOBIN 30.4 pg (27.0-33.0); MEAN CORPUSCULAR HGB CONC 33.1 g/dl (32.0-36.5); MONO # 0.7 10^3/uL (0.0-0.8); NEUTROPHILS % 55.6 % (36.0-66.0); PLATELET COUNT, AUTOMATED 285 10^3/uL (150-450); RED BLOOD COUNT 4.73 10^6/uL (4.00-5.40); WHITE BLOOD COUNT 10.8 10^3/uL (4.0-10.0)
[2018-10-21 16:07] LABS: CHOLESTEROL RISK RATIO 2.761 (<5); MAGNESIUM LEVEL 1.7 MG/DL (1.8-2.4)
[2018-10-21 16:14] LABS: TOTAL 25(OH) VITAMIN D 61.5 NG/ML (30.0-100.0)
[2018-10-21 16:59] LABS: HEMOGLOBIN A1c 6.5 %
== END ==
LOC: M LAB 14:05
PROVIDERS: ATTEND Nurse Practitioner Family
DX: Z13.220 Encounter for screening for lipoid disorders (principal); E11.9 Type 2 diabetes mellitus without complications; E83.42 Hypomagnesemia; K21.9 Gastro-esophageal reflux disease without esophagitis

== ENCOUNTER → 2018-11-25 | Outpatient (CLI) | payer MEDICARE, BC ==
[~2018-11-25] MED LIST changes: -/CELE20CA; -/CELE20CA OR; +CELE1CAP4; +CELE1CAP4 OR; -CITA20TA4 PO; +CITA20TA6 PO
[2018-11-25 16:41] LABS: BLOOD UREA NITROGEN 11 MG/DL (7-18); CREATININE FOR GFR 0.93 MG/DL (0.55-1.30); GLUCOSE, FASTING 165 MG/DL (70-100)
[2018-11-25 16:42] LABS: CALCIUM LEVEL 8.3 MG/DL (8.8-10.2); CARBON DIOXIDE LEVEL 23 MEQ/L (21-32); CHLORIDE LEVEL 112 MEQ/L (98-107); GLOMERULAR FILTRATION RATE > 60.0 (>45); POTASSIUM SERUM 4.4 MEQ/L (3.5-5.1); SODIUM LEVEL 143 MEQ/L (136-145)
[2018-11-25 18:13] LABS: MALB URINE SIEMENS 44.5 MG/L; MAU/CREAT RATIO 19.5 MCG/MG (0.0-30.0)
== END ==
LOC: M SMT 10:22
PROVIDERS: ATTEND Internal Medicine Cardiovascular Disease
DX: I10 Essential (primary) hypertension (principal)

== ENCOUNTER → 2018-12-17 | Outpatient (REF) | payer MEDICARE, BC ==
[2018-12-17 21:51] LABS: APPEARANCE, URINE MANUAL HAZY (CLEAR); COLOR, URINE MANUAL YELLOW (YELLOW)
[2018-12-17 21:52] LABS: BILIRUBIN, URINE MANUAL NEGATIVE (NEGATIVE); GLUCOSE, URINE (UA) MANUAL NEGATIVE (NEGATIVE); KETONE, URINE MANUAL NEGATIVE (NEGATIVE); NITRITE, URINE MANUAL NEGATIVE (NEGATIVE); PROTEIN, URINE MANUAL 1+ mg/dL (NEGATIVE); SPECIFIC GRAVITY,URINE MANUAL 1.025 (1.002-1.035); UROBILINOGEN, URINE MANUAL NORMAL (NORMAL)
[2018-12-17 21:53] LABS: BLOOD URINE MANUAL POSITIVE (NEGATIVE); LEUKOCYTE ESTERASE, URINE MAN TRACE (NEGATIVE)
[2018-12-17 21:55] LABS: BACTERIA, URINE SMALL AMOUNT; HYALINE CAST, URINE 0-1 /lpf (0-1); SQUAMOUS EPITHELIAL CELL URINE SMALL AMOUNT /hpf (SMALL AMT)
== END ==
LOC: M LAB REF 10:28
PROVIDERS: ATTEND Physician Assistant
DX: N39.0 Urinary tract infection, site not specified (principal)

== ENCOUNTER → 2019-02-18 | Outpatient (REF) | payer MEDICARE, BC ==
[~2019-02-18] MED LIST changes: +OMEP-358 PO; -OMEP20TA PO; -OMEP40CA2; +OMEP40CA97; -TRAZ-163 PO; +TRAZ-257 PO
[2019-02-18 10:57] LABS: BASO # 0.1 10^3/uL (0.0-0.2); BASO % 0.7 % (0.0-1.0); EOS # 0.6 10^3/uL (0.0-0.50); EOS % 7.1 % (0.0-3.0); HEMATOCRIT 43.2 % (36.0-47.0); HEMOGLOBIN 14.3 g/dl (12.0-15.5); LYMPH # 3.1 10^3/uL (1.5-4.5); LYMPH % 35.1 % (24.0-44.0); MEAN CORPUSCULAR HEMOGLOBIN 30.1 pg (27.0-33.0); MEAN CORPUSCULAR HGB CONC 33.1 g/dl (32.0-36.5); MEAN CORPUSCULAR VOLUME 90.9 fl (80.0-96.0); MONO # 0.5 10^3/uL (0.0-0.8); MONO % 5.8 % (0.0-5.0); NEUTROPHILS # 4.5 10^3/uL (1.8-7.7); NEUTROPHILS % 50.9 % (36.0-66.0); PLATELET COUNT, AUTOMATED 257 10^3/uL (150-450); RED BLOOD COUNT 4.75 10^6/uL (4.00-5.40); WHITE BLOOD COUNT 8.9 10^3/uL (4.0-10.0)
[2019-02-18 11:37] LABS: ALBUMIN 3.5 GM/DL (3.2-5.2); ALT/SGPT 39 U/L (12-78); BILIRUBIN,TOTAL 0.9 MG/DL (0.2-1.0); BLOOD UREA NITROGEN 12 MG/DL (7-18); CALCIUM LEVEL 8.9 MG/DL (8.8-10.2); CARBON DIOXIDE LEVEL 24 MEQ/L (21-32); CHLORIDE LEVEL 106 MEQ/L (98-107); CHOLESTEROL LEVEL 170 MG/DL (<200); CHOLESTEROL RISK RATIO 2.881 (<5); CREATININE FOR GFR 0.96 MG/DL (0.55-1.30); FREE T4 1.21 NG/DL (0.76-1.46); GLOMERULAR FILTRATION RATE > 60.0 (>45); GLUCOSE, FASTING 134 MG/DL (70-100); HDL CHOLESTEROL 59 MG/DL (>40); LDL CHOLESTEROL 63 MG/DL (<100); NON-HDL-C 111 MG/DL; POTASSIUM SERUM 4.1 MEQ/L (3.5-5.1); SODIUM LEVEL 140 MEQ/L (136-145); THYROID STIMULATING HORMONE 0.619 uIU/ML (0.358-3.740); TOTAL PROTEIN 7.1 GM/DL (6.4-8.2); TRIGLYCERIDES LEVEL 239 MG/DL (<150); URIC ACID 5.3 MG/DL (2.6-6.0)
[2019-02-18 11:40] LABS: VITAMIN B12 LEVEL 371 PG/ML (247-911)
[2019-02-18 11:44] LABS: MALB URINE SIEMENS 35.9 MG/L; MAU/CREAT RATIO 12.5 MCG/MG (0.0-30.0)
[2019-02-18 11:52] LABS: HEMOGLOBIN A1c 7.1 %
== END ==
LOC: M SFHCPLAZ 08:55
PROVIDERS: ATTEND Family Medicine
DX: F31.81 Bipolar II disorder (principal); M10.9 Gout, unspecified; E11.42 Type 2 diabetes mellitus with diabetic polyneuropathy

== ENCOUNTER → 2019-05-12 | Outpatient (CLI) | payer MEDICARE, BC ==
[~2019-05-12] MED LIST changes: -OMEP-358 PO; +OMEP20TA PO; +OMEP40CA2; -OMEP40CA97; +TRAZ-163 PO; -TRAZ-257 PO
--- NOTE | 2019-05-12 11:27 | REP ---
BILATERAL SCREENING DIGITAL MAMMOGRAM WITH 3D TOMOSYNTHESIS: There are no palpable abnormalities or other breast complaints. The the patient states she has not had a clinical breast examination in over a year The the patient states she performs self-breast examinations two times per year The Tyrer Cuzick Score is: 5.1% . Comparison is 01/27/2014. The breasts are heterogeneously dense, which could obscure small masses. There is no dominant mass, micro calcific cluster or architectural distortion that would indicate malignancy. There are benign calcifications. There are no additional findings on 3D tomosynthesiss. There is no change from the prior study. Impression: BIRADS/ACR category 2 mammogram. Benign findings. Recommendation: Routine annual screening mammography. Because of the increased breast density, annual adjunctive breast MRI in addition to screening mammography is recommended. These can be performed at alternating six month intervals. This mammogram was interpreted with the aid of a FDA approved computer-aided detection system. A. Negative mammogram reports should not delay biopsy if a dominant or clinically suspicious mass is present. B. Not all breast cancers are identified by mammography or tomosynthesis. C. Adenosis and dense breasts may obscure an underlying neoplasm. Patient letter M1 dense breasts. Electronically Signed by Morgan Booth MD 05/12/2019 11:18 A
== END ==
LOC: M WHC 09:53
PROVIDERS: ATTEND Family Medicine
DX: Z12.31 Encounter for screening mammogram for malignant neoplasm of breast (principal)

== ENCOUNTER → 2019-07-21 | Outpatient (REF) | payer MEDICARE, BC ==
[~2019-07-21] MED LIST changes: +OMEP-358 PO; -OMEP20TA PO; -OMEP40CA2; +OMEP40CA97
[2019-07-21 19:05] LABS: MALB URINE SIEMENS 67.8 MG/L; MAU/CREAT RATIO 27.6 MCG/MG (0.0-30.0)
[2019-07-21 20:07] LABS: HEMOGLOBIN A1c 5.9 %
== END ==
LOC: M SFHCPLAZ 14:50
PROVIDERS: ATTEND Family Medicine
DX: E11.42 Type 2 diabetes mellitus with diabetic polyneuropathy (principal)

== ENCOUNTER → 2019-10-18 | Outpatient (REF) | payer MEDICARE, BC ==
[~2019-10-18] MED LIST changes: -TRAZ-163 PO; +TRAZ-257 PO
== END ==
LOC: M LAB REF 12:21
PROVIDERS: ATTEND Physician Assistant
DX: N39.0 Urinary tract infection, site not specified (principal)

== ENCOUNTER → 2020-01-11 | Outpatient (REF) | payer MEDICARE, BC ==
[2020-01-11 14:06] LABS: HEMATOCRIT 41.4 % (36.0-47.0); HEMOGLOBIN 13.5 g/dl (12.0-15.5); MEAN CORPUSCULAR HEMOGLOBIN 29.8 pg (27.0-33.0); MEAN CORPUSCULAR HGB CONC 32.6 g/dl (32.0-36.5); MEAN CORPUSCULAR VOLUME 91.4 fl (80.0-96.0); PLATELET COUNT, AUTOMATED 232 10^3/uL (150-450); RED BLOOD COUNT 4.53 10^6/uL (4.00-5.40)
[2020-01-11 14:24] LABS: ALBUMIN 3.5 GM/DL (3.2-5.2); ALT/SGPT 28 U/L (12-78); BILIRUBIN,TOTAL 0.7 MG/DL (0.2-1.0); BLOOD UREA NITROGEN 11 MG/DL (7-18); CALCIUM LEVEL 8.8 MG/DL (8.8-10.2); CARBON DIOXIDE LEVEL 26 MEQ/L (21-32); CHLORIDE LEVEL 108 MEQ/L (98-107); CHOLESTEROL LEVEL 196 MG/DL (<200); CREATININE FOR GFR 0.94 MG/DL (0.55-1.30); FREE T4 1.11 NG/DL (0.76-1.46); GLOMERULAR FILTRATION RATE > 60.0 (>45); GLUCOSE, FASTING 114 MG/DL (70-100); HDL CHOLESTEROL 71 MG/DL (>40); LDL CHOLESTEROL 78 MG/DL (<100); MAGNESIUM LEVEL 1.8 MG/DL (1.8-2.4); NON-HDL-C 125 MG/DL; PHOSPHORUS LEVEL 3.9 MG/DL (2.5-4.9); SODIUM LEVEL 142 MEQ/L (136-145); THYROID STIMULATING HORMONE 0.592 uIU/ML (0.358-3.740); TOTAL PROTEIN 6.7 GM/DL (6.4-8.2); TRIGLYCERIDES LEVEL 233 MG/DL (<150)
[2020-01-11 14:32] LABS: HEMOGLOBIN A1c 5.9 %
[2020-01-11 14:54] LABS: MALB URINE SIEMENS 45.4 MG/L; MAU/CREAT RATIO 15.1 MCG/MG (0.0-30.0)
== END ==
LOC: M SFHCPLAZ 09:59
PROVIDERS: ATTEND Family Medicine
DX: F51.04 Psychophysiologic insomnia (principal); I10 Essential (primary) hypertension; F31.81 Bipolar II disorder; R53.83 Other fatigue; E11.42 Type 2 diabetes mellitus with diabetic polyneuropathy

== ENCOUNTER → 2020-06-01 | Outpatient (CLI) | payer MEDICARE, BC ==
--- NOTE | 2020-06-01 12:31 | REPMRS ---
Patient History The patient states she has not had a clinical breast exam in over a year. No known family history of cancer. Took hormonal contraceptives for 5 years. 3D TOMOSYNTHESIS WAS PERFORMED. [facility] lifetime risk for [facility] cancer is 4.9%. Volpara breast density b. Digital Woman Screen Mammo: June 01, 2020 - Exam #: [id number] Bilateral CC and MLO view(s) were taken. Technologist: Mel Mitchell, Technologist Prior study comparison: May 12, 2019, bilateral digital woman screen mammo performed at [facility] and [facility]. May 06, 2018, bilateral digital woman screen mammo performed at [facility]. FINDINGS: There are scattered fibroglandular densities. There has been no change in the appearance of the mammogram from the prior studies. There is a mild amount of residual fibroglandular tissue which is fairly symmetric. There is no interval development of dominant mass, architectural distortion, or clustered microcalcification suggestive of malignancy. Assessment: BI-RADS/ACR category 1 mammogram. Negative Mammogram. Recommendation Routine screening mammogram in 1 year (for women over age 40). This mammogram was interpreted with the aid of an FDA-approved computer-aided dectection system. Electronically Signed By: Morgan Garsia MD 06/01/20 [id number]
== END | disposition home or self-care (01) ==
LOC: M WHC 09:15
PROVIDERS: ATTEND Student in an Organized Health Care Education/Training Program
DX: Z12.31 Encounter for screening mammogram for malignant neoplasm of breast (principal)

== ENCOUNTER 2020-08-10 14:54 | Inpatient (IN) | payer MEDICARE, BC ==
[~2020-08-10] VITALS: Ht 172.7 cm; Wt 100.4 kg
[~2020-08-10 14:54] MED LIST changes: -OMEP40CA97; +OMEP40CA97 PO
[2020-08-10] MEDS ORDERED: CARV3.12 PO (15:12)
[2020-08-10] MEDS ORDERED: TRUL0.5I SQ (15:12)
[2020-08-10] MEDS ORDERED: DULO1CAP6 PO (15:12)
[2020-08-10] MEDS ORDERED: LOSA25TA14 PO (15:12)
--- NOTE | 2020-08-10 16:13 | REP ---
INDICATION: DYSPNEA/COUGH COMPARISON: 11/20/2017 TECHNIQUE: Portable AP view of the chest FINDINGS: Scattered bilateral pulmonary opacities and suspected left lower lobe consolidation. Left-sided effusion cannot be excluded. No pneumothorax. Mediastinum and cardiac silhouette incompletely evaluated due to overlying opacities. Skeletal structures are intact. IMPRESSION: Findings most suggestive of multifocal pneumonia and possible COVID-19 pulmonary disease. <Electronically signed by Marciano Lopez > 08/10/20 [id number]
[2020-08-10 17:39] LABS: BASO % 0.2 % (0.0-1.0); HEMATOCRIT 47.5 % (36.0-47.0); HEMOGLOBIN 16.1 g/dl (12.0-15.5); LYMPH # 0.7 10^3/uL (1.5-5.0); LYMPH % 11.9 % (24.0-44.0); MEAN CORPUSCULAR HEMOGLOBIN 29.1 pg (27.0-33.0); MEAN CORPUSCULAR HGB CONC 33.9 g/dl (32.0-36.5); MEAN CORPUSCULAR VOLUME 85.9 fl (80.0-96.0); MONO # 0.6 10^3/uL (0.0-0.8); NEUTROPHILS # 4.7 10^3/uL (1.5-8.5); NEUTROPHILS % 77.4 % (36.0-66.0); PLATELET COUNT, AUTOMATED 271 10^3/uL (150-450); RED BLOOD COUNT 5.53 10^6/uL (4.00-5.40); WHITE BLOOD COUNT 6.1 10^3/uL (4.0-10.0)
[2020-08-10] MEDS ORDERED: DRIS50003 PO (18:07)
[2020-08-10] MEDS ORDERED: QUET50TA3 PO (18:07)
[2020-08-10] MEDS ORDERED: PT COMMENT (18:08)
[2020-08-10 18:13] LABS: ALBUMIN 3.2 GM/DL (3.2-5.2); ALT/SGPT 54 U/L (12-78); BILIRUBIN,DIRECT 0.5 MG/DL (0.0-0.2); BLOOD UREA NITROGEN 23 MG/DL (7-18); CALCIUM LEVEL 8.5 MG/DL (8.8-10.2); CARBON DIOXIDE LEVEL 25 MEQ/L (21-32); CHLORIDE LEVEL 96 MEQ/L (98-107); CK-MB VALUE MASS 3.2 NG/ML (<3.6); CPK CREATINE PHOSPHOKINASE 557 U/L (26-192); CREATININE FOR GFR 1.34 MG/DL (0.55-1.30); GLOMERULAR FILTRATION RATE 42.7 (>45); GLUCOSE, FASTING 180 MG/DL (70-100); MB/CK RELATIVE INDEX 0.57 (< OR =4); POTASSIUM SERUM 3.9 MEQ/L (3.5-5.1); SODIUM LEVEL 132 MEQ/L (136-145); TOTAL PROTEIN 7.6 GM/DL (6.4-8.2); TROPONIN I < 0.02 NG/ML (< 0.10)
[2020-08-10 18:57] LABS: C REACTIVE PROTEIN QUANTITATIV 8.53 MG/DL (0.00-0.30); FERRITIN 520 NG/ML (8-252); LDH LACTATE DEHYDROGENASE 412 U/L (84-246)
[2020-08-10] MEDS ORDERED: GLUCAGON INJ 1MG VIAL SC PRN (20:15)
[2020-08-10] MEDS ORDERED: DEXTROSE 50% 50 ML SYRINGE IV PRN (20:15)
[2020-08-10] MEDS ORDERED: GLUCOSE 4GM CHEW TABLET PO PRN (20:15)
--- NOTE | 2020-08-10 20:16 | HPEPDOC ---
[facility] Medical History & Physical Date of Admission Aug 10, 2020 Date of Service: Aug 10, 2020 History and Physical CHIEF COMPLAINT: shortness of breath HISTORY OF PRESENT ILLNESS: 64 yo F with a hx of IBD(UC) s/p colectomy and ileostomy, DM2, obesity, presenting with a week long history of progressively worsening shortness of breath, dry cough, subjective chills and malaise. She denies chest pain, palpitations, bleeding, n/v/d. On arrival to the ED, hypoxic to 80s, required 6L NC to maintain at 88%. She was sinus tachycardic on EKG in 115-120 range. She denies any lower extremity pain or swelling, or prolonged periods of immobilization in the past 2 weeks. Pertinent labs noted were 5.53, Hgb 16.1, Hct 47.5. BUN 23. Cr 1.34. Ferritin 520. LDH 412. CK 557. CRP 8.53. Trop <0.02. D dimer 1000. Patient will be admitted to main covid unit, for acute hypoxic respiratory failure secondary covid-19 infection, requiring vapotherm. PAST MEDICAL HISTORY: IBD(UC) DM2 Obesity PAST SURGICAL HISTORY: Colectomy Ileostomy R hip arthroplasty SOCIAL HISTORY: lives with , teenage soon Denies smoking Denies etoh use Denies illicits FAMILY HISTORY: Father - CHF Mother - CVA ALLERGIES: Please see below. REVIEW OF SYSTEMS: CONSTITUTIONAL: Active fevers, malaise HEENT: patient denies blurred vision, loss of vision, headache,. CARDIOVASCULAR: patient denies chest pain, palpitations. RESPIRATORY: Reports shortness of breath, cough, dry GASTROINTESTINAL: patient denies abdominal pain, n/v/d, blood in stool. GENITOURINARY: patient denies dysuria, discharge. SKIN: patient denies rashes. MUSCULOSKELETAL: patient denies joint pain, neck pain. NEUROLOGICAL: patient denies focal weakness, numbness, seizures. PSYCHIATRIC: patient denies SI/HI. ENDOCRINE: patient denies polyuria, heat intolerance, cold intolerance. HEMATOLOGIC/LYMPHATIC: patient denies easy bruising. HOME MEDICATIONS: Please see below. PHYSICAL EXAMINATION: VITAL SIGNS: please see below General: NAD, comfortable HEENT: PERRLA, EOMI, sclerae clear Neck: supple, normal ROM, no JVD Respiratory: lungs CTAB, no wheeze, no rales, no crackles CVS: RRR, normal S1, S2, no murmurs Abdo: soft, no masses, no hepatosplenomegaly, BS+, no rebound tenderness, ileostomy with appropriate output. Extremities: no edema, pulses 2+ MSK: no joint deformities, normal ROM, no calf pain or tenderness Neuro: no focal neuro deficits, moving all 4 extremities, CN2-12 intact. Strength 5/5 in all 4 extremities. No nystagmus. Psych: calm, cooperative, AAO x 3 LABORATORY DATA: See below. IMAGING: CXR (08/10/20): IMPRESSION: Findings most suggestive of multifocal pneumonia and possible COVID-19 pulmonary disease. MICROBIOLOGY: Please see below. ASSESSMENT: 64 yo F with a hx of IBD(UC) s/p colectomy and ileostomy, DM2, obesity, presenting with acute hypoxic respiratory failure secondary to Covid-19 infection, in addition to CORNELL 2/2 dehydration given tachycardia, as well as elevation in Hct, BUN and CK. . PLAN: #Covid-19 pneumonia #Acute hypoxic respiratory failure - hypoxic on arrival, requiring 6L NC to maintain 88%, titrated up to 8L - check ABG - vapotherm - dexamethasone 6 mg IV daily - remdesivir x 5 days (symptoms onset within window of chronicity - weight based AC with lovenox at 0.5 mg/kg q12h #OCRNELL: - likely secondary to dehydration - check FeNa - IVF hydration with NS #DM2 - ISS - FSBS - hypoglycemic precautions #Dehydration - IVF hydration with NS at 125 cc/hr - repeat BMP in am, trend HR #IBD(UC): - stable, no recent flare #Ileostomy: - bag exchanged, normal output DVT ppx: lovenox 0.5 mg/kg q12h Dispo: admission expected to last > 2 midnights. Code Status: Full Code. Vital Signs Vital Signs Date Time Temp Pulse Resp B/P (MAP) Pulse Ox O2 Delivery O2 Flow Rate FiO2 08/10/20 19:06 113 24 145/92 (109) 88 Nasal Cannula 6.0 08/10/20 14:56 97.5 Laboratory Data Labs 24H Laboratory Tests 2 08/10/20 17:08: Immature Granulocyte % (Auto) 0.5, Neutrophils (%) (Auto) 77.4H, Lymphocytes (%) (Auto) 11.9L, Monocytes (%) (Auto) 10.0H, Eosinophils (%) (Auto) 0.0, Basophils (%) (Auto) 0.2, Neutrophils # (Auto) 4.7, Lymphocytes # (Auto) 0.7L, Monocytes # (Auto) 0.6, Eosinophils # (Auto) 0.0, Basophils # (Auto) 0.0, Nucleated Red Blood Cells % (auto) 0.0, D-Dimer, Quantitative 1037.34H, Anion Gap 11, Glomerular Filtration Rate 42.7L, Calcium Level 8.5L, Ferritin 520H, Total Bilirubin 1.0, Direct Bilirubin 0.5H, Aspartate Amino Transf (AST/SGOT) 68H, Alanine Aminotransferase (ALT/SGPT) 54, Alkaline Phosphatase 112, Lactate Dehydrogenase 412H, Total Creatine Kinase 557H, Creatine Kinase MB 3.2, Creatine Kinase MB Relative Index 0.57, Troponin I < 0.02, C-Reactive Protein, Quanti tative 8.53H, Total Protein 7.6, Albumin 3.2, Albumin/Globulin Ratio 0.7L CBC/BMP Laboratory Tests 08/10/20 17:08 Microbiology Microbiology 08/10/20 Respiratory Virus Panel (PCR) (JOSE) - Final, Complete SARS-CoV-2 (COVID 19) Home Medications Scheduled Carvedilol (Carvedilol) 3.125 Mg Tablet, 3.125 MG PO BID Dulaglutide (Trulicity) 1.5 Mg/0.5 Ml Pen.injctr, 1.5 MG SQ QWEEK saturday Duloxetine Hcl (Duloxetine HCl) 60 Mg Capsule.dr, 60 MG PO DAILY Ergocalciferol (Vitamin D2) (Drisdol) 1,250 Mcg Capsule, 1,250 MCG PO QWEEK Gabapentin (Neurontin) 300 Mg Cap, 300 MG PO BID Metformin HCl (Metformin HCl) 1,000 Mg Tab, 1,000 MG PO BID Omeprazole (Omeprazole) 40 Mg Cap, 40 MG PO DAILY Prednisone (Prednisone) 10 Mg Tablet, 10 MG PO TAPER Take 4 tabs daily x 3 days, then 3 tabs daily x 3 days, then 2 tabs daily x 3 days, then 1 tab daily x 3 days and stop Quetiapine Fumarate (Quetiapine Fumarate) 50 Mg Tablet, 50 MG PO QHS Ramelteon (Ramelteon) 8 Mg Tablet, 8 MG PO QHS Allergies Coded Allergies: morphine (Verified Allergy, Unknown, SOB, 08/10/20) meperidine (Verified Adverse Reaction, Unknown, vomiting, 08/10/20) oxycodone (Verified Adverse Reaction, Unknown, itching, 08/10/20) A-FIB/CHADSVASC A-FIB History Current/History of A-Fib/PAF?: No Current PO Anticoag Therapy: No MARY PAINTING MD Aug 10, 2020 20:15
[2020-08-10] MEDS: NS 1,000 ML IV SCH (20:55)
[2020-08-10] MEDS: HumaLOG INSULIN (NovoLOG) PER UNIT SC SCH (21:00)
[2020-08-10] MEDS: ENOXAPARIN 100MG/1ML SYRINGE (J1650 PER 10MG) SC SCH (21:35)
[2020-08-10] MEDS ORDERED: COMBIVENT RESPIMAT 100-20MCG INHALER 4GM INH PRN (21:45)
[2020-08-11] MEDS ORDERED: REMDESIVIR 200 MG in NS 250 ML IV ONE ×2
[2020-08-11] MEDS ORDERED: SODIUM CHLORIDE 0.9% INJ 10 ML SYR IV ONE (01:00)
[2020-08-11] MEDS: NS 1,000 ML IV SCH (04:17)
--- NOTE | 2020-08-11 05:29 | ECGEPIP ---
[facility] - ED Test Date: 2020-08-10 Pat Name: GAMALIEL MALAGON Department: Room: - Gender: Female Community Living Specialist: luz : [id number] Requested By: Alin Durán Order Number: [id number] Reading MD: Alfonso Huang Measurements Intervals [place] Rate: 106 P: 20 MO: 156 QRS: -67 QRSD: 80 T: 78 QT: 316 QTc: 421 Interpretive Statements SINUS TACHYCARDIA WITH FREQUENT ECTOPIC PREMATURE COMPLEXES PATTERN CONSISTENT WITH PULMONARY DISEASE Inferior Q waves of uncertain significance Ectopy increased from tracing done 11-20-17 Electronically Signed on 08-11-2020 5:29:09 EST by Alfonso Huang
[2020-08-11 08:04] LABS: BASO % 0.2 % (0.0-1.0); HEMATOCRIT 42.8 % (36.0-47.0); HEMOGLOBIN 14.4 g/dl (12.0-15.5); LYMPH # 1.1 10^3/uL (1.5-5.0); LYMPH % 19.8 % (24.0-44.0); MEAN CORPUSCULAR HEMOGLOBIN 29.2 pg (27.0-33.0); MEAN CORPUSCULAR HGB CONC 33.6 g/dl (32.0-36.5); MEAN CORPUSCULAR VOLUME 86.8 fl (80.0-96.0); MONO # 0.6 10^3/uL (0.0-0.8); MONO % 11.2 % (0.0-5.0); NEUTROPHILS # 3.9 10^3/uL (1.5-8.5); NEUTROPHILS % 68.3 % (36.0-66.0); PLATELET COUNT, AUTOMATED 241 10^3/uL (150-450); RED BLOOD COUNT 4.93 10^6/uL (4.00-5.40); WHITE BLOOD COUNT 5.7 10^3/uL (4.0-10.0)
[2020-08-11 08:42] LABS: INR 1.05; PROTHROMBIN TIME 13.9 SECONDS (12.5-14.3)
[2020-08-11 08:43] LABS: PARTIAL THROMBOPLASTIN TIME 32.8 SECONDS (24.2-38.5)
[2020-08-11 08:49] LABS: ALBUMIN 2.7 GM/DL (3.2-5.2); ALT/SGPT 44 U/L (12-78); BILIRUBIN,DIRECT 0.3 MG/DL (0.0-0.2); BILIRUBIN,TOTAL 0.7 MG/DL (0.2-1.0); BLOOD UREA NITROGEN 23 MG/DL (7-18); CALCIUM LEVEL 7.5 MG/DL (8.8-10.2); CARBON DIOXIDE LEVEL 25 MEQ/L (21-32); CHLORIDE LEVEL 104 MEQ/L (98-107); CREATININE FOR GFR 0.98 MG/DL (0.55-1.30); FERRITIN 475 NG/ML (8-252); GLOMERULAR FILTRATION RATE > 60.0 (>45); GLUCOSE, FASTING 170 MG/DL (70-100); MAGNESIUM LEVEL 2.1 MG/DL (1.8-2.4); NT-PRO BNP 46 PG/ML (<125); POTASSIUM SERUM 3.7 MEQ/L (3.5-5.1); SODIUM LEVEL 138 MEQ/L (136-145); TOTAL PROTEIN 6.3 GM/DL (6.4-8.2)
[2020-08-11] MEDS: CARVedilol 3.125 MG TAB PO SCH ×2 (09:00→22:10)
[2020-08-11] MEDS: PANTOPRAZOLE 40MG VIAL (C9113 PER 1) IV SCH (09:00)
[2020-08-11] MEDS: HumaLOG INSULIN (NovoLOG) PER UNIT SC SCH ×4 (09:34→22:26)
[2020-08-11] MEDS: ENOXAPARIN 100MG/1ML SYRINGE (J1650 PER 10MG) SC SCH ×2 (09:35→22:12)
[2020-08-11] MEDS: dexameTHASONE 4 MG/ML 1ML VIAL (J1100 PER 1MG) IV SCH (09:35)
[2020-08-11] MEDS ORDERED: FUROSEMIDE 20MG/2ML VIAL (J1940) IV ONE (10:15)
[2020-08-11 11:10] VITALS: BP 125/78
[2020-08-11] MEDS: DULoxetine 30 MG CAP (CYMBALTA) PO SCH (12:53)
[2020-08-11] MEDS: GABAPENTIN 300 MG CAP PO SCH ×2 (12:53→22:10)
--- NOTE | 2020-08-11 17:12 | IPNPDOC ---
Subjective Date Seen The patient was seen on 08/11/20. Subjective Chief Complaint/HPI SUBJECTIVE: Pt is examined at bedside this am. She's on vapotherm 90% 40L and satting 93%. She denies any sob on the vapotherm. She's able to speak in full sentences without desaturations or accessory muscle use. She denies SOB, CP, fever, chills, n/v/d. ALLERGIES: Please see below. HOME MEDICATIONS: Please see below. PHYSICAL EXAMINATION: VITAL SIGNS: please see below General: NAD, comfortable HEENT: PERRLA, EOMI, sclerae clear Neck: supple, normal ROM, no JVD Respiratory: lungs CTAB, no wheeze, no rales, no crackles Cardiovasc: RRR, normal S1, S2, no m/g/r Abdomen: soft, no masses, no hepatosplenomegaly, BS+, no rebound tenderness, ileostomy with appropriate output. Extremities: mild lower extr edema bilaterally, pulses 2+ MSK: no joint deformities, normal ROM, no calf pain or tenderness Neuro: no focal neuro deficits, moving all 4 extremities, CN2-12 intact. Strength 5/5 in all 4 extremities. No nystagmus. Psych: calm, cooperative, AAOx3 LABORATORY DATA: See below IMAGING: CXR (08/10/20): IMPRESSION: Findings most suggestive of multifocal pneumonia and possible COVID-19 pulmonary disease. MICROBIOLOGY: Please see below. ASSESSMENT AND PLAN: This is a 64 yo F with a hx of IBD (UC) s/p colectomy and ileostomy, DM2, obesity, who presents to [facility] ER with a week long history of progressively worsening shortness of breath, dry cough, subjective chills and malaise, She denies chest pain, palpitations, bleeding, n/v/d. On arrival to the ED, hypoxic to 80s, required 6L NC to maintain at 88%. She was sinus tachycardic on EKG in 115-120 range. She denies any lower extremity pain or swelling, or prolonged periods of immobilization in the past 2 weeks. Patient will be admitted to main covid unit, for acute hypoxic respiratory failure secondary Covid-19 infection, requiring vapotherm. #Acute hypoxic respiratory failure 2/2 Covid-19 pneumonia - In the ER, pt is requiring 6L NC to maintain 88%, titrated up to 8L - Pt is put on vapotherm- currently requiring 40L 90% FIO2 satting above 90% - C/w dexamethasone 6 mg IV daily - C/w remdesivir x 5 days (day 1) - mild peripheral edema- IV lasix 20mg X1 dose given - C/w weight based lovenox for anticoag #NIDDM - Bs is elevated this a.m in the 200s - ISS+ FSBS+hypoglycemic precautions - Will add levemir 4units Qhs #IBD(UC): - stable, no recent flare - ileostomy bag change with appropriate output - c/w home meds DVT ppx: lovenox GI ppx: Protonix Fluids: Gave 1 dose IV lasix. No maintenance Diet: consistent carb Code status: Full Dispo: pending clinical improvement. Continue to wean O2 as tolerated. Awake proning Assessment /Plan Plan/VTE VTE Prophylaxis Ordered?: Yes VS, I&O, 24H, Fishbone Vital Signs/I&O Vital Signs Date Time Temp Pulse Resp B/P (MAP) Pulse Ox O2 Delivery O2 Flow Rate FiO2 08/11/20 11:23 98.9 96 20 122/70 (87) 92 90 08/11/20 06:30 High Flow Cannula 08/10/20 21:37 28.0 I&O- Last 24 Hours up to 6 AM 08/11/20 06:00 Intake Total 1320 ml Balance 1320 ml Laboratory Data 24H LABS Laboratory Tests 2 08/10/20 17:08: Immature Granulocyte % (Auto) 0.5, Neutrophils (%) (Auto) 77.4H, Lymphocytes (%) (Auto) 11.9L, Monocytes (%) (Auto) 10.0H, Eosinophils (%) (Auto) 0.0, Basophils (%) (Auto) 0.2, Neutrophils # (Auto) 4.7, Lymphocytes # (Auto) 0.7L, Monocytes # (Auto) 0.6, Eosinophils # (Auto) 0.0, Basophils # (Auto) 0.0, Nucleated Red Blood Cells % (auto) 0.0, D-Dimer, Quantitative 1037.34H, Anion Gap 11, Glomerular Filtration Rate 42.7L, Calcium Level 8.5L, Ferritin 520H, Total Bilirubin 1.0, Direct Bilirubin 0.5H, Aspartate Amino Transf (AST/SGOT) 68H, Alanine Aminotransferase (ALT/SGPT) 54, Alkaline Phosphatase 112, Lactate Dehydrogenase 412H, Total Creatine Kinase 557H, Creatine Kinase MB 3.2, Creatine Kinase MB Relative Index 0.57, Troponin I < 0.02, C-Reactive Protein, Quantitat yris 8.53H, Total Protein 7.6, Albumin 3.2, Albumin/Globulin Ratio 0.7L 08/10/20 20:52: Bedside Glucose (Misc Panel) 221H 08/11/20 07:40: Immature Granulocyte % (Auto) 0.5, Neutrophils (%) (Auto) 68.3H, Lymphocytes (%) (Auto) 19.8L, Monocytes (%) (Auto) 11.2H, Eosinophils (%) (Auto) 0.0, Basophils (%) (Auto) 0.2, Neutrophils # (Auto) 3.9, Lymphocytes # (Auto) 1.1L, Monocytes # (Auto) 0.6, Eosinophils # (Auto) 0.0, Basophils # (Auto) 0.0, Nucleated Red Blood Cells % (auto) 0.0, Anion Gap 9, Glomerular Filtration Rate > 60.0, Calcium Level 7.5L, Ferritin 475H, Total Bilirubin 0.7, Direct Bilirubin 0.3H, Aspartate Amino Transf (AST/SGOT) 57H, Alanine Aminotransferase (ALT/SGPT) 44, Alkaline Phosphatase 98, Total Protein 6.3L, Albumin 2.7L, Albumin/Globulin Ratio 0.8L, Prothrombin Time 13.9, Prothromb Time International Ratio 1.05, Activated Partial Thromboplast Time 32.8, Fibrinogen 641H, Magnesium Level 2.1, RW-Ihy-Y-Type Natriuretic Peptide 46 CBC/BMP Laboratory Tests 08/10/20 17:08 08/11/20 07:40 Microbiology Microbiology 08/10/20 Respiratory Virus Panel (PCR) ([facility]) - Final, Complete SARS-CoV-2 (COVID 19) GME ATTESTATION GME ATTESTATION My faculty preceptor for this patient encounter was physically present during the encounter and was fully available. All aspects of the patient interview, examination, medical decision making process, and medical care plan development were reviewed and approved by the faculty preceptor. The faculty preceptor is aware and concurs with the plan as stated in the body of this note and will attest to such by his/her cosignature. ATTENDING NOTE I, Spencer Gannon MD, have independently examined this patient and performed my own physical exam, as well as reviewed the documentation and edited where ne cessary. I have discussed in detail with the resident / student the findings and plan of treatment as documented by the resident / student and edited their note. I agree with their findings and treatment plan and have edited their documentation. Dwayne Renteria DO Aug 11, 2020 11:46 SPENCER GANNON MD Aug 12, 2020 14:51
[2020-08-11 22:06] VITALS: BP 109/78
[2020-08-11] MEDS: QUEtiapine FUMARATE 50MG TAB PO SCH (22:10)
[2020-08-11] MEDS: LEVEMIR (INSULIN DETEMIR) 1 UNITS/0.01ML SC SCH (22:11)
[2020-08-11 23:00] VITALS: BP 101/71
[2020-08-12] MEDS: SODIUM CHLORIDE 0.9% INJ 10 ML SYR IV SCH (00:56)
[2020-08-12 04:10] VITALS: BP 101/71
[2020-08-12 06:17] LABS: BASO % 0.2 % (0.0-1.0); HEMATOCRIT 42.6 % (36.0-47.0); HEMOGLOBIN 13.8 g/dl (12.0-15.5); LYMPH # 1.1 10^3/uL (1.5-5.0); LYMPH % 22.8 % (24.0-44.0); MEAN CORPUSCULAR HEMOGLOBIN 28.9 pg (27.0-33.0); MEAN CORPUSCULAR HGB CONC 32.4 g/dl (32.0-36.5); MEAN CORPUSCULAR VOLUME 89.3 fl (80.0-96.0); MONO # 0.7 10^3/uL (0.0-0.8); MONO % 15.5 % (0.0-5.0); NEUTROPHILS # 2.9 10^3/uL (1.5-8.5); NEUTROPHILS % 60.6 % (36.0-66.0); PLATELET COUNT, AUTOMATED 257 10^3/uL (150-450); RED BLOOD COUNT 4.77 10^6/uL (4.00-5.40); WHITE BLOOD COUNT 4.7 10^3/uL (4.0-10.0)
[2020-08-12 06:36] LABS: INR 1.12; PARTIAL THROMBOPLASTIN TIME 29.8 SECONDS (24.2-38.5); PROTHROMBIN TIME 14.6 SECONDS (12.5-14.3)
[2020-08-12 07:00] LABS: ALBUMIN 2.7 GM/DL (3.2-5.2); ALT/SGPT 41 U/L (12-78); BILIRUBIN,DIRECT 0.3 MG/DL (0.0-0.2); BILIRUBIN,TOTAL 0.6 MG/DL (0.2-1.0); BLOOD UREA NITROGEN 29 MG/DL (7-18); CALCIUM LEVEL 7.9 MG/DL (8.8-10.2); CARBON DIOXIDE LEVEL 27 MEQ/L (21-32); CHLORIDE LEVEL 105 MEQ/L (98-107); CREATININE FOR GFR 1.05 MG/DL (0.55-1.30); FERRITIN 474 NG/ML (8-252); GLOMERULAR FILTRATION RATE 56.5 (>45); GLUCOSE, FASTING 175 MG/DL (70-100); MAGNESIUM LEVEL 2.3 MG/DL (1.8-2.4); NT-PRO BNP 32 PG/ML (<125); POTASSIUM SERUM 4.1 MEQ/L (3.5-5.1); SODIUM LEVEL 141 MEQ/L (136-145); TOTAL PROTEIN 6.2 GM/DL (6.4-8.2); TROPONIN I < 0.02 NG/ML (< 0.10)
[2020-08-12] MEDS: CARVedilol 3.125 MG TAB PO SCH ×2 (09:00→20:33)
[2020-08-12] MEDS: dexameTHASONE 4 MG/ML 1ML VIAL (J1100 PER 1MG) IV SCH (09:18)
[2020-08-12] MEDS: PANTOPRAZOLE 40MG VIAL (C9113 PER 1) IV SCH (09:18)
[2020-08-12] MEDS: DULoxetine 30 MG CAP (CYMBALTA) PO SCH (09:19)
[2020-08-12] MEDS: GABAPENTIN 300 MG CAP PO SCH ×2 (09:19→20:33)
[2020-08-12] MEDS: HumaLOG INSULIN (NovoLOG) PER UNIT SC SCH ×4 (09:19→20:34)
[2020-08-12] MEDS: ENOXAPARIN 60MG/0.6ML SYRINGE (J1650 PER 10MG) SC SCH ×2 (09:20→20:34)
[2020-08-12 12:00] VITALS: BP 103/74
--- NOTE | 2020-08-12 12:14 | IPNPDOC ---
Subjective Date Seen The patient was seen on 08/12/20. Subjective Chief Complaint/HPI SUBJECTIVE: No acute events reported by nursing staff. Pt denies any fever, chills, n/v/d, abdominal discomfort ALLERGIES: Please see below. HOME MEDICATIONS: Please see below. PHYSICAL EXAMINATION: VITAL SIGNS: please see below General: NAD, comfortable HEENT: PERRLA, EOMI, sclerae clear Neck: supple, normal ROM, no JVD Respiratory: No wheezing appreciates, Mild rhonchi on R lung Cardiovasc: RRR, normal S1, S2, no m/g/r Abdomen: soft, no masses, no hepatosplenomegaly, BS+, no rebound tenderness, ileostomy with appropriate output. Extremities: trace lower extr edema bilaterally, pulses 2+ MSK: no joint deformities, normal ROM, no calf pain or tenderness Neuro: no focal neuro deficits, moving all 4 extremities, CN2-12 intact. Streng th 5/5 in all 4 extremities. No nystagmus. Psych: calm, cooperative, AAOx3 LABORATORY DATA: See below IMAGING: CXR (08/10/20): IMPRESSION: Findings most suggestive of multifocal pneumonia and possible COVID-19 pulmonary disease. MICROBIOLOGY: Please see below. ASSESSMENT AND PLAN: This is a 64 yo F with a hx of IBD (UC) s/p colectomy and ileostomy, DM2, obesity, who presents to [facility] ER with a week long history of progressively worsening shortness of breath, dry cough, subjective chills and malaise, She denies chest pain, palpitations, bleeding, n/v/d. On arrival to the ED, hypoxic to 80s, required 6L NC to maintain at 88%. She was sinus tachycardic on EKG in 1 15-120 range. She denies any lower extremity pain or swelling, or prolonged periods of immobilization in the past 2 weeks. Patient will be admitted to main covid unit, for acute hypoxic respiratory failure secondary Covid-19 infection, requiring Vapotherm. #Acute hypoxic respiratory failure 2/2 Covid-19 pneumonia - In the ER, pt is requiring 6L NC to maintain 88%, titrated up to 8L - Pt is put on vapotherm- currently requiring 40L 90% FIO2 satting above 90% - C/w dexamethasone 6 mg IV daily - C/w remdesivir x 5 days (day 2) - C/w weight based lovenox for anticoag #NIDDM - Bs is elevated this a.m 175 - ISS+ FSBS+hypoglycemic precautions - C/w levemir 4units Qhs #IBD(UC): - stable, no recent flare - ileostomy bag change with appropriate output - c/w home meds DVT ppx: lovenox GI ppx: Protonix Fluids: Gave 1 dose IV lasix. No maintenance Diet: consistent carb Code status: Full Dispo: pending clinical improvement. Continue to wean O2 as tolerated. Awake proning Assessment /Plan Plan/VTE VTE Prophylaxis Ordered?: Yes VS, I&O, 24H, Fishbone Vital Signs/I&O Vital Signs Date Time Temp Pulse Resp B/P (MAP) Pulse Ox O2 Delivery O2 Flow Rate FiO2 08/12/20 08:37 87 HVNI-Vapotherm 40.0 100 08/12/20 04:10 97.3 61 20 101/71 (81) I&O- Last 24 Hours up to 6 AM 08/12/20 05:59 Intake Total 910 ml Output Total 1250 ml Balance -340 ml Laboratory Data 24H LABS Laboratory Tests 2 08/11/20 11:47: Bedside Glucose (Misc Panel) 182H 08/11/20 17:01: Bedside Glucose (Misc Panel) 223H 08/11/20 21:54: Bedside Glucose (Misc Panel) 223H 08/12/20 05:58: Immature Granulocyte % (Auto) 0.9, Neutrophils (%) (Auto) 60.6, Lymphocytes (%) (Auto) 22.8L, Monocytes (%) (Auto) 15.5H, Eosinophils (%) (Auto) 0.0, Basophils (%) (Auto) 0.2, Neutrophils # (Auto) 2.9, Lymphocytes # (Auto) 1.1L, Monocytes # (Auto) 0.7, Eosinophils # (Auto) 0.0, Basophils # (Auto) 0.0, Nucleated Red Blood Cells % (auto) 0.0, Prothrombin Time 14.6H, Prothromb Time International Ratio 1.12, Activated Partial Thromboplast Time 29.8, Fibrinogen 751H, Anion Gap 9, Glomerular Filtration Rate 56.5, Calcium Level 7.9L, Phosphorus Level 3.5, Magnesium Level 2.3, Ferritin 474H, Total Bilirubin 0.6, Direct Bilirubin 0.3H, Aspartate Amino Transf (AST/SGOT) 43H, Alanine Aminotransferase (ALT/SGPT) 41, Alkaline Phosphatase 92, Troponin I < 0.02, GE-Xlq-D-Type Natriuretic Peptide 32, Total Protein 6.2L, Albumin 2.7L, Albumin/Globulin Ratio 0.8L CBC/BMP Laboratory Tests 08/12/20 05:58 Microbiology Microbiology 08/10/20 Respiratory Virus Panel (PCR) ([facility]) - Final, Complete SARS-CoV-2 (COVID 19) GME ATTESTATION GME ATTESTATION My faculty preceptor for this patient encounter was physically present during the encounter and was fully available. All aspects of the patient interview, examination, medical decision making process, and medical care plan development were reviewed and approved by the faculty preceptor. The faculty preceptor is aware and concurs with the plan as stated in the body of this note and will attest to such by his/her cosignature. ATTENDING NOTE I, Spencer Gannon MD, have independently examined this patient and performed my own physical exam, as well as reviewed the documentation and edited where necessary. I have discussed in detail with the resident / student the findings and plan of treatment as documented by the resident / student and edited their note. I agree with their findings and treatment plan and have edited their documentation. Dwayne Renteria DO Aug 12, 2020 11:09 SPENCER GANNON MD Aug 12, 2020 15:12
[2020-08-12] MEDS: QUEtiapine FUMARATE 50MG TAB PO SCH (20:33)
[2020-08-12] MEDS: LEVEMIR (INSULIN DETEMIR) 1 UNITS/0.01ML SC SCH (20:34)
[2020-08-12 22:00] VITALS: BP 115/78
[2020-08-13] MEDS: SODIUM CHLORIDE 0.9% INJ 10 ML SYR IV SCH (00:10)
[2020-08-13 06:00] VITALS: BP 102/70
[2020-08-13] MEDS: ENOXAPARIN 60MG/0.6ML SYRINGE (J1650 PER 10MG) SC SCH ×2 (08:47→21:08)
[2020-08-13] MEDS: dexameTHASONE 4 MG/ML 1ML VIAL (J1100 PER 1MG) IV SCH (08:48)
[2020-08-13] MEDS: PANTOPRAZOLE 40MG VIAL (C9113 PER 1) IV SCH (08:48)
[2020-08-13] MEDS: HumaLOG INSULIN (NovoLOG) PER UNIT SC SCH ×4 (08:48→21:08)
[2020-08-13] MEDS: DULoxetine 30 MG CAP (CYMBALTA) PO SCH (08:49)
[2020-08-13] MEDS: GABAPENTIN 300 MG CAP PO SCH ×2 (08:49→21:08)
[2020-08-13] MEDS: CARVedilol 3.125 MG TAB PO SCH ×2 (08:53→21:09)
[2020-08-13 09:08] LABS: BASO % 0.2 % (0.0-1.0); HEMATOCRIT 42.7 % (36.0-47.0); HEMOGLOBIN 13.6 g/dl (12.0-15.5); LYMPH # 1.3 10^3/uL (1.5-5.0); LYMPH % 22.1 % (24.0-44.0); MEAN CORPUSCULAR HEMOGLOBIN 28.5 pg (27.0-33.0); MEAN CORPUSCULAR HGB CONC 31.9 g/dl (32.0-36.5); MEAN CORPUSCULAR VOLUME 89.5 fl (80.0-96.0); MONO # 0.6 10^3/uL (0.0-0.8); MONO % 10.3 % (0.0-5.0); NEUTROPHILS # 3.9 10^3/uL (1.5-8.5); NEUTROPHILS % 67.1 % (36.0-66.0); PLATELET COUNT, AUTOMATED 296 10^3/uL (150-450); RED BLOOD COUNT 4.77 10^6/uL (4.00-5.40); WHITE BLOOD COUNT 5.8 10^3/uL (4.0-10.0)
[2020-08-13 09:46] LABS: ALBUMIN 2.5 GM/DL (3.2-5.2); ALT/SGPT 38 U/L (12-78); BILIRUBIN,DIRECT 0.4 MG/DL (0.0-0.2); BILIRUBIN,TOTAL 0.7 MG/DL (0.2-1.0); BLOOD UREA NITROGEN 29 MG/DL (7-18); CALCIUM LEVEL 7.9 MG/DL (8.8-10.2); CARBON DIOXIDE LEVEL 29 MEQ/L (21-32); CHLORIDE LEVEL 106 MEQ/L (98-107); CREATININE FOR GFR 1.04 MG/DL (0.55-1.30); FERRITIN 425 NG/ML (8-252); GLOMERULAR FILTRATION RATE 57.2 (>45); GLUCOSE, FASTING 128 MG/DL (70-100); MAGNESIUM LEVEL 2.2 MG/DL (1.8-2.4); NT-PRO BNP 39 PG/ML (<125); POTASSIUM SERUM 4.3 MEQ/L (3.5-5.1); SODIUM LEVEL 142 MEQ/L (136-145); TOTAL PROTEIN 5.9 GM/DL (6.4-8.2); TROPONIN I < 0.02 NG/ML (< 0.10)
[2020-08-13 10:03] LABS: INR 1.1; PROTHROMBIN TIME 14.4 SECONDS (12.5-14.3)
[2020-08-13 10:04] LABS: PARTIAL THROMBOPLASTIN TIME 29.2 SECONDS (24.2-38.5)
[2020-08-13 10:10] VITALS: BP 111/70
[2020-08-13 13:09] VITALS: BP 99/67
[2020-08-13 16:00] VITALS: BP 105/70
--- NOTE | 2020-08-13 16:13 | IPNPDOC ---
Subjective Date Seen The patient was seen on 08/13/20. Subjective Chief Complaint/HPI SUBJECTIVE: No acute events reported by nursing staff. Pt is very pleasant resting comfortably in bed this am. She's still on 100% FIO2 and 40L satting 92%. Will attempt to wean her to 90% FIO2 and see if she can tolerate. Pt denies any fever, chills, n/v/d, abdominal discomfort ALLERGIES: Please see below. HOME MEDICATIONS: Please see below. PHYSICAL EXAMINATION: VITAL SIGNS: please see below General: NAD, comfortable HEENT: PERRLA, EOMI, sclerae clear Neck: supple, normal ROM, no JVD Respiratory: No wheezing, rales, ronchi appreciated Cardiovasc: RRR, normal S1, S2, no m/g/r Abdomen: soft, no masses, no hepatosplenomegaly, BS+, no rebound tenderness, ileostomy with appropriate output. Extremities: Trace lower extr edema bilaterally, pulses 2+ MSK: no joint deformities, normal ROM, no calf pain or tenderness Neuro: no focal neuro deficits, moving all 4 extremities, CN2-12 intact. Strength 5/5 in all 4 extremities. No nystagmus. Psych: calm, cooperative, AAOx3 LABORATORY DATA: See below IMAGING: CXR (08/10/20): IMPRESSION: Findings most suggestive of multifocal pneumonia and possible COVID-19 pulmonary disease. MICROBIOLOGY: Please see below. ASSESSMENT AND PLAN: This is a 64 yo F with a hx of IBD (UC) s/p colectomy and ileostomy, DM2, obesity, who presents to [facility] ER with a week long history of progressively worsening shortness of breath, dry cough, subjective chills and malaise, She d enies chest pain, palpitations, bleeding, n/v/d. On arrival to the ED, hypoxic to 80s, required 6L NC to maintain at 88%. She was sinus tachycardic on EKG in 115-120 range. She denies any lower extremity pain or swelling, or prolonged periods of immobilization in the past 2 weeks. Patient will be admitted to main covid unit, for acute hypoxic respiratory failure secondary Covid-19 infection, requiring Vapotherm. #Acute hypoxic respiratory failure 2/2 Covid-19 pneumonia - In the ER, pt is requiring 6L NC to maintain 88%, titrated up to 8L - Pt is put on vapotherm- currently requiring 40L 100% FIO2 satting above 90% - Will attempt to decrease FIO2 as tolerated to titrate O2 >90% - C/w dexamethasone 6 mg IV daily - C/w remdesivir x 5 days (day 3) - C/w weight based lovenox for anticoag #NIDDM - Bs is elevated this a.m 175 - ISS+ FSBS+hypoglycemic precautions - C/w levemir 4units Qhs #IBD(UC): - stable, no recent flare - ileostomy bag change with appropriate output - c/w home meds DVT ppx: lovenox GI ppx: Protonix Fluids: Gave 1 dose IV lasix. No maintenance Diet: consistent carb Code status: Full Dispo: pending clinical improvement. Continue to wean O2 as tolerated. Awake proning Assessment /Plan Plan/VTE VTE Prophylaxis Ordered?: Yes VS, I&O, 24H, Fishbone Vital Signs/I&O Vital Signs Date Time Temp Pulse Resp B/P (MAP) Pulse Ox O2 Delivery O2 Flow Rate FiO2 08/13/20 08:53 80 112/68 08/13/20 08:26 92 HVNI-Vapotherm 40.0 100 08/13/20 06:00 95.8 18 I&O- Last 24 Hours up to 6 AM 08/13/20 06:00 Intake Total 960 ml Output Total 700 ml Balance 260 ml Laboratory Data 24H LABS Laboratory Tests 2 08/12/20 11:38: Bedside Glucose (Misc Panel) 165H 08/12/20 16:45: Bedside Glucose (Misc Panel) 279H 08/12/20 20:35: Bedside Glucose (Misc Panel) 233H 08/13/20 08:23: Immature Granulocyte % (Auto) 0.3, Neutrophils (%) (Auto) 67.1H, Lymphocytes (%) (Auto) 22.1L, Monocytes (%) (Auto) 10.3H, Eosinophils (%) (Auto) 0.0, Basophils (%) (Auto) 0.2, Neutrophils # (Auto) 3.9, Lymphocytes # (Auto) 1.3L, Monocytes # (Auto) 0.6, Eosinophils # (Auto) 0.0, Basophils # (Auto) 0.0, Nucleated Red Blood Cells % (auto) 0.0, Prothrombin Time 14.4H, Prothromb Time International Ratio 1.10, Activated Partial Thromboplast Time 29.2, Fibrinogen 579H, Anion Gap 7L, Glomerular Filtration Rate 57.2, Calcium Level 7.9L, Magnesium Level 2.2, Ferritin 425H, Total Bilirubin 0.7, Direct Bilirubin 0.4H, Aspartate Amino Trans f (AST/SGOT) 42H, Alanine Aminotransferase (ALT/SGPT) 38, Alkaline Phosphatase 91, Troponin I < 0.02, NJ-Rqv-Z-Type Natriuretic Peptide 39, Total Protein 5.9L, Albumin 2.5L, Albumin/Globulin Ratio 0.7L 08/13/20 08:34: Bedside Glucose (Misc Panel) 126H CBC/BMP Laboratory Tests 08/13/20 08:23 Microbiology Microbiology 08/10/20 Respiratory Virus Panel (PCR) ([facility]) - Final, Complete SARS-CoV-2 (COVID 19) GME ATTESTATION GME ATTESTATION My faculty preceptor for this patient encounter was physically present during the encounter and was fully available. All aspects of the patient interview, examination, medical decision making process, and medical care plan development were reviewed and approved by the faculty preceptor. The faculty preceptor is aware and concurs with the plan as stated in the body of this note and will attest to such by his/her cosignature. ATTENDING NOTE I saw and evaluated the patient. I discussed the management of this patient in detail with the resident and agree with the plan of care as documented in the residents note. Dwayne Renteria DO Aug 13, 2020 10:07 VEGA STEVEN MD Sep 07, 2020 22:03
[2020-08-13 20:15] VITALS: BP 115/73
[2020-08-13] MEDS: LEVEMIR (INSULIN DETEMIR) 1 UNITS/0.01ML SC SCH (21:07)
[2020-08-13] MEDS: QUEtiapine FUMARATE 50MG TAB PO SCH (21:08)
[2020-08-14] MEDS: SODIUM CHLORIDE 0.9% INJ 10 ML SYR IV SCH (01:23)
[2020-08-14 04:29] VITALS: BP 121/76
[2020-08-14 07:54] LABS: BASO % 0.2 % (0.0-1.0); EOS % 0.6 % (0.0-3.0); HEMATOCRIT 40.8 % (36.0-47.0); HEMOGLOBIN 13.4 g/dl (12.0-15.5); LYMPH # 1.5 10^3/uL (1.5-5.0); LYMPH % 23.8 % (24.0-44.0); MEAN CORPUSCULAR HEMOGLOBIN 29.3 pg (27.0-33.0); MEAN CORPUSCULAR HGB CONC 32.8 g/dl (32.0-36.5); MEAN CORPUSCULAR VOLUME 89.3 fl (80.0-96.0); MONO # 0.6 10^3/uL (0.0-0.8); NEUTROPHILS # 4.1 10^3/uL (1.5-8.5); NEUTROPHILS % 64.9 % (36.0-66.0); PLATELET COUNT, AUTOMATED 303 10^3/uL (150-450); RED BLOOD COUNT 4.57 10^6/uL (4.00-5.40); WHITE BLOOD COUNT 6.3 10^3/uL (4.0-10.0)
[2020-08-14 08:34] LABS: INR 1.14; PROTHROMBIN TIME 14.9 SECONDS (12.5-14.3)
[2020-08-14 08:35] LABS: PARTIAL THROMBOPLASTIN TIME 28.6 SECONDS (24.2-38.5)
[2020-08-14 08:37] LABS: D-DIMER QUANT 400.05 ng/ml (<500)
[2020-08-14 09:06] LABS: ALBUMIN 2.5 GM/DL (3.2-5.2); ALT/SGPT 36 U/L (12-78); BILIRUBIN,DIRECT 0.3 MG/DL (0.0-0.2); BILIRUBIN,TOTAL 0.7 MG/DL (0.2-1.0); BLOOD UREA NITROGEN 23 MG/DL (7-18); C REACTIVE PROTEIN QUANTITATIV 3.16 MG/DL (0.00-0.30); CARBON DIOXIDE LEVEL 28 MEQ/L (21-32); CHLORIDE LEVEL 107 MEQ/L (98-107); CREATININE FOR GFR 0.92 MG/DL (0.55-1.30); FERRITIN 329 NG/ML (8-252); GLOMERULAR FILTRATION RATE > 60.0 (>45); GLUCOSE, FASTING 114 MG/DL (70-100); MAGNESIUM LEVEL 2.1 MG/DL (1.8-2.4); NT-PRO BNP 78 PG/ML (<125); POTASSIUM SERUM 4.2 MEQ/L (3.5-5.1); SODIUM LEVEL 141 MEQ/L (136-145); TOTAL PROTEIN 5.8 GM/DL (6.4-8.2); TROPONIN I < 0.02 NG/ML (< 0.10)
[2020-08-14] MEDS: DULoxetine 30 MG CAP (CYMBALTA) PO SCH (09:48)
[2020-08-14] MEDS: GABAPENTIN 300 MG CAP PO SCH ×2 (09:48→20:42)
[2020-08-14] MEDS: CARVedilol 3.125 MG TAB PO SCH ×2 (09:49→20:42)
[2020-08-14] MEDS: ENOXAPARIN 60MG/0.6ML SYRINGE (J1650 PER 10MG) SC SCH ×2 (09:50→20:43)
[2020-08-14] MEDS: PANTOPRAZOLE 40MG VIAL (C9113 PER 1) IV SCH (09:50)
[2020-08-14] MEDS: HumaLOG INSULIN (NovoLOG) PER UNIT SC SCH ×4 (11:18→20:44)
[2020-08-14 14:00] VITALS: BP 110/78
--- NOTE | 2020-08-14 15:39 | IPNPDOC ---
Date Seen The patient was seen on 08/14/20. Progress Note SUBJECTIVE: Comfortable, reports improvement in dyspnea, remains on Vapotherm at 100% FiO2. Tolerating her diet, no new complaints. PHYSICAL EXAMINATION: VITAL SIGNS: Please see below. GENERAL: Obese HEENT: Normocephalic, atraumatic, moist mucous membranes NECK: Supple CARDIOVASCULAR EXAMINATION: S1, S2, no murmurs RESPIRATORY EXAMINATION: Scattered rhonchi, no wheezing ABDOMINAL EXAMINATION: Soft, nontender, nondistended, positive bowel sounds EXTREMITIES: Range of motion intact SKIN: No rash NEUROLOGICAL EXAMINATION: Alert and oriented 3, no focal deficits PSYCHIATRIC EXAMINATION: Calm and cooperative LABORATORY DATA, IMAGING STUDIES, MICROBIOLOGY: Please see below. ASSESSMENT AND PLAN: 64-year-old female with diabetes mellitus is admitted for acute hypoxemic respiratory failure secondary to Covid pneumonia PROBLEMS: 1. Acute hypoxemic respiratory failure second to Covid pneumonia: Clinically improving slowly over the past few days, remains on Vapotherm, currently at 100% FiO2, will titrate down as tolerated. Continue Decadron, Remdesivir 2. . Diabetes mellitus. Increase Levemir to 10 units at bedtime, continue sliding scale insulin coverage with meals and at bedtime 3. Hypertension. Continue Coreg DVT prophylaxis: Lovenox. GI prophylaxis: PPI VS, I&O, 24H, Fishbone Vital Signs/I&O Vital Signs Date Time Temp Pulse Resp B/P (MAP) Pulse Ox O2 Delivery O2 Flow Rate FiO2 08/14/20 09:49 93 132/78 08/14/20 09:01 92 HVNI-Vapotherm 30.0 100 08/14/20 04:29 96.9 18 I&O- Last 24 Hours up to 6 AM 08/14/20 06:00 Intake Total 450 ml Output Total 250 ml Balance 200 ml Laboratory Data 24H LABS Laboratory Tests 2 08/13/20 17:15: Bedside Glucose (Misc Panel) 248H 08/13/20 20:13: Bedside Glucose (Misc Panel) 255H 08/14/20 07:12: Immature Granulocyte % (Auto) 0.5, Neutrophils (%) (Auto) 64.9, Lymphocytes (%) (Auto) 23.8L, Monocytes (%) (Auto) 10.0H, Eosinophils (%) (Auto) 0.6, Basophils (%) (Auto) 0.2, Neutrophils # (Auto) 4.1, Lymphocytes # (Auto) 1.5, Monocytes # (Auto) 0.6, Eosinophils # (Auto) 0.0, Basophils # (Auto) 0.0, Nucleated Red Blood Cells % (auto) 0.0, Prothrombin Time 14.9H, Prothromb Time International Ratio 1.14, Activated Partial Thromboplast Time 28.6, Fibrinogen 574H, D-Dimer, Quantitative 400.05, Anion Gap 6L, Glomerular Filtration Rate > 60.0, Calcium Level 8.0L, Magnesium Level 2.1, Ferritin 329H, Total Bilirubin 0.7, Direct Bilirubin 0.3H, Aspartate Amino Transf (AST/SGOT) 27, Alanine Aminotransferase (ALT/SGPT) 36, Alkaline Phosphatase 87, Troponin I < 0.02, C-Reactive Protein, Quantitative 3.16H, HR-Oib-F-Type Natriuretic Peptide 78, Total Protein 5.8L, Albumin 2.5L, Albumin/Globulin Ratio 0.8L CBC/BMP Laboratory Tests 08/14/20 07:12 Microbiology Microbiology 08/10/20 Respiratory Virus Panel (PCR) ([facility]) - Final, Complete SARS-CoV-2 (COVID 19) VEGA STEVEN MD Aug 14, 2020 15:39
[2020-08-14] MEDS: dexameTHASONE 4 MG/ML 1ML VIAL (J1100 PER 1MG) IV SCH (17:49)
[2020-08-14 20:00] VITALS: BP 125/76
[2020-08-14] MEDS: QUEtiapine FUMARATE 50MG TAB PO SCH (20:41)
[2020-08-14] MEDS: LEVEMIR (INSULIN DETEMIR) 1 UNITS/0.01ML SC SCH (20:44)
[2020-08-15] VITALS (7 sets, daily range): BP systolic 106–120; BP diastolic 65–87
[2020-08-15] MEDS: SODIUM CHLORIDE 0.9% INJ 10 ML SYR IV SCH (00:10)
[2020-08-15] MEDS: HumaLOG INSULIN (NovoLOG) PER UNIT SC SCH ×4 (07:30→22:07)
[2020-08-15] MEDS ORDERED: FUROSEMIDE 20MG/2ML VIAL (J1940) IV ONE (09:30)
[2020-08-15] MEDS: DULoxetine 30 MG CAP (CYMBALTA) PO SCH (10:42)
[2020-08-15] MEDS: CARVedilol 3.125 MG TAB PO SCH ×2 (10:43→22:05)
[2020-08-15] MEDS: ENOXAPARIN 60MG/0.6ML SYRINGE (J1650 PER 10MG) SC SCH ×2 (10:44→22:03)
[2020-08-15] MEDS: GABAPENTIN 300 MG CAP PO SCH ×2 (10:44→22:05)
[2020-08-15] MEDS: PANTOPRAZOLE 40MG VIAL (C9113 PER 1) IV SCH (10:45)
[2020-08-15] MEDS: dexameTHASONE 4 MG/ML 1ML VIAL (J1100 PER 1MG) IV SCH (10:45)
[2020-08-15 10:48] LABS: BASO % 0.3 % (0.0-1.0); EOS # 0.1 10^3/uL (0.0-0.5); EOS % 1.6 % (0.0-3.0); HEMATOCRIT 42.2 % (36.0-47.0); HEMOGLOBIN 13.5 g/dl (12.0-15.5); LYMPH # 0.9 10^3/uL (1.5-5.0); LYMPH % 14.1 % (24.0-44.0); MEAN CORPUSCULAR HEMOGLOBIN 28.5 pg (27.0-33.0); MEAN CORPUSCULAR VOLUME 89.2 fl (80.0-96.0); MONO # 0.5 10^3/uL (0.0-0.8); MONO % 8.8 % (0.0-5.0); NEUTROPHILS # 4.5 10^3/uL (1.5-8.5); NEUTROPHILS % 74.2 % (36.0-66.0); PLATELET COUNT, AUTOMATED 316 10^3/uL (150-450); RED BLOOD COUNT 4.73 10^6/uL (4.00-5.40); WHITE BLOOD COUNT 6.1 10^3/uL (4.0-10.0)
[2020-08-15 11:03] LABS: INR 1.18; PROTHROMBIN TIME 15.2 SECONDS (12.5-14.3)
[2020-08-15 11:04] LABS: PARTIAL THROMBOPLASTIN TIME 30.4 SECONDS (24.2-38.5)
[2020-08-15 11:06] LABS: D-DIMER QUANT 655.01 ng/ml (<500)
[2020-08-15 11:25] LABS: ALBUMIN 2.4 GM/DL (3.2-5.2); ALT/SGPT 29 U/L (12-78); BILIRUBIN,DIRECT 0.4 MG/DL (0.0-0.2); BILIRUBIN,TOTAL 0.8 MG/DL (0.2-1.0); BLOOD UREA NITROGEN 18 MG/DL (7-18); C REACTIVE PROTEIN QUANTITATIV 8.57 MG/DL (0.00-0.30); CALCIUM LEVEL 8.4 MG/DL (8.8-10.2); CARBON DIOXIDE LEVEL 27 MEQ/L (21-32); CHLORIDE LEVEL 105 MEQ/L (98-107); CREATININE FOR GFR 0.96 MG/DL (0.55-1.30); FERRITIN 305 NG/ML (8-252); GLOMERULAR FILTRATION RATE > 60.0 (>45); GLUCOSE, FASTING 193 MG/DL (70-100); NT-PRO BNP 157 PG/ML (<125); POTASSIUM SERUM 4.4 MEQ/L (3.5-5.1); SODIUM LEVEL 140 MEQ/L (136-145); TOTAL PROTEIN 5.8 GM/DL (6.4-8.2); TROPONIN I < 0.02 NG/ML (< 0.10)
--- NOTE | 2020-08-15 13:10 | IPNPDOC ---
Text Note Date of Service The patient was seen on 08/15/20. NOTE Subjective Comfortable, reports improvement in dyspnea, remains on Vapotherm at 100% FiO2. Tolerating her diet, no new complaints. She's been able to prone which is helping her a lot Physical examination GENERAL: Obese, alert, oriented to time, place and person HEENT: Normocephalic, atraumatic, moist mucous membranes NECK: Supple CARDIOVASCULAR EXAMINATION: S1, S2, no murmurs RESPIRATORY EXAMINATION: Scattered rhonchi, no wheezing ABDOMINAL EXAMINATION: Soft, nontender, nondistended, positive bowel sounds EXTREMITIES: Range of motion intact SKIN: No rash NEUROLOGICAL EXAMINATION: Alert and oriented 3, no focal deficits PSYCHIATRIC EXAMINATION: Calm and cooperative Labs reviewed Radiology reviewed Assessment and plan This is a 64 yo F with a hx of IBD (UC) s/p colectomy and ileostomy, DM2, obesity, who presents to [facility] ER with a week long history of progressively worsening shortness of breath, dry cough, subjective chills and malaise, She denies chest pain, palpitations, bleeding, n/v/d. On arrival to the ED, hypoxic to 80s, required 6L NC to maintain at 88%. She was sinus tachycardic on EKG in 115-120 range. She denies any lower extremity pain or swelling, or prolonged periods of immobilization in the past 2 weeks. Patient will be admitted to main covid unit, for acute hypoxic respiratory failure secondary Covid-19 infection, requiring Vapotherm eventually and is on 100% FiO2 on 40 L. . She has been started on them to severe Decadron and Lovenox and has been stable in her clinical condition 1. Acute hypoxemic respiratory failure second to Covid pneumonia: : Clinically improving slowly over the past few days, remains on Vapotherm, currently at 100% FiO2, will titrate down as tolerated. Continue Decadron, Remdesivir 2. . Diabetes mellitus. Levemir to 10 units at bedtime, continue sliding scale insulin coverage with meals and at bedtime 3. Hypertension. Continue Coreg DVT prophylaxis: Lovenox. Frequent pronating incentive spirometry and out of bed to chair 2 times a day. GI prophylaxis: PPI Disposition unknown at this time VS,Fishbone, I+O VS, Fishbone, I+O Laboratory Tests 08/15/20 10:24 08/15/20 10:25 Vital Signs Date Time Temp Pulse Resp B/P (MAP) Pulse Ox O2 Delivery O2 Flow Rate FiO2 08/15/20 10:43 65 109/71 08/15/20 08:25 96.6 20 89 HVNI-Vapotherm 40.0 100 I&O- Last 24 Hours up to 6 AM 08/15/20 06:00 Intake Total 850 ml Output Total 500 ml Balance 350 ml TERRELL GANNON MD Aug 15, 2020 13:10
[2020-08-15] MEDS: QUEtiapine FUMARATE 50MG TAB PO SCH (22:04)
[2020-08-15] MEDS: LEVEMIR (INSULIN DETEMIR) 1 UNITS/0.01ML SC SCH (22:05)
[2020-08-16 04:00] VITALS: BP 113/76
[2020-08-16] MEDS: HumaLOG INSULIN (NovoLOG) PER UNIT SC SCH ×4 (07:30→21:00)
[2020-08-16 08:26] LABS: HEMATOCRIT 44.4 % (36.0-47.0); HEMOGLOBIN 14.1 g/dl (12.0-15.5); MEAN CORPUSCULAR HEMOGLOBIN 28.1 pg (27.0-33.0); MEAN CORPUSCULAR HGB CONC 31.8 g/dl (32.0-36.5); MEAN CORPUSCULAR VOLUME 88.4 fl (80.0-96.0); PLATELET COUNT, AUTOMATED 389 10^3/uL (150-450); RED BLOOD COUNT 5.02 10^6/uL (4.00-5.40); WHITE BLOOD COUNT 9.8 10^3/uL (4.0-10.0)
[2020-08-16 09:03] LABS: ALBUMIN 2.6 GM/DL (3.2-5.2); ALT/SGPT 29 U/L (12-78); BILIRUBIN,TOTAL 0.8 MG/DL (0.2-1.0); BLOOD UREA NITROGEN 20 MG/DL (7-18); CALCIUM LEVEL 8.6 MG/DL (8.8-10.2); CARBON DIOXIDE LEVEL 28 MEQ/L (21-32); CHLORIDE LEVEL 106 MEQ/L (98-107); CREATININE FOR GFR 0.99 MG/DL (0.55-1.30); GLOMERULAR FILTRATION RATE > 60.0 (>45); GLUCOSE, FASTING 129 MG/DL (70-100); POTASSIUM SERUM 4.3 MEQ/L (3.5-5.1); SODIUM LEVEL 141 MEQ/L (136-145); TOTAL PROTEIN 6.3 GM/DL (6.4-8.2)
--- NOTE | 2020-08-16 10:34 | REP ---
INDICATION: hypoxia COMPARISON: 08/10/2020 TECHNIQUE: Portable AP view of the chest FINDINGS: Bilateral infiltrates (left greater than right) appears slightly increased from prior examination. Mediastinum and cardiac silhouette are incompletely evaluated but appear relatively stable. Skeletal structures intact. IMPRESSION: Diffuse bilateral opacities with increased left-sided infiltrates suggested. <Electronically signed by Marciano Lopez > 08/16/20 [id number]
[2020-08-16] MEDS: ENOXAPARIN 60MG/0.6ML SYRINGE (J1650 PER 10MG) SC SCH ×2 (11:13→21:19)
[2020-08-16] MEDS: dexameTHASONE 4 MG/ML 1ML VIAL (J1100 PER 1MG) IV SCH (11:14)
[2020-08-16] MEDS: PANTOPRAZOLE 40MG VIAL (C9113 PER 1) IV SCH (11:14)
[2020-08-16] MEDS: CARVedilol 3.125 MG TAB PO SCH ×2 (11:15→21:20)
[2020-08-16] MEDS: GABAPENTIN 300 MG CAP PO SCH ×2 (11:15→21:19)
[2020-08-16] MEDS: REMDESIVIR 100 MG in NS 250 ML IV SCH (11:15)
[2020-08-16] MEDS: DULoxetine 30 MG CAP (CYMBALTA) PO SCH (11:15)
[2020-08-16 11:38] VITALS: BP 125/78
[2020-08-16] MEDS: SODIUM CHLORIDE 0.9% INJ 10 ML SYR IV SCH (12:00)
--- NOTE | 2020-08-16 12:00 | IPNPDOC ---
Text Note Date of Service The patient was seen on 08/16/20. NOTE Subjective Comfortable, reports improvement in dyspnea, remains on Vapotherm at 100% FiO2. Tolerating her diet, no new complaints. Physical examination GENERAL: Obese, alert, oriented to time, place and person HEENT: Normocephalic, atraumatic, moist mucous membranes NECK: Supple CARDIOVASCULAR : S1, S2, no murmurs RESPIRATORY : Scattered rhonchi, no wheezing ABDOMINAL: Soft, nontender, nondistended, positive bowel sounds EXTREMITIES: Range of motion intact SKIN: No rash NEUROLOGICAL: Alert and oriented 3, no focal deficits PSYCHIATRIC : Calm and cooperative Labs reviewed Radiology reviewed Assessment and plan This is a 64 yo F with a hx of IBD (UC) s/p colectomy and ileostomy, DM2, obesity, who presents to [facility] ER with a week long history of progressively wors ening shortness of breath, dry cough, subjective chills and malaise, She denies chest pain, palpitations, bleeding, n/v/d. On arrival to the ED, hypoxic to 80s, required 6L NC to maintain at 88%. She was sinus tachycardic on EKG in 115- 120 range. She denies any lower extremity pain or swelling, or prolonged periods of immobilization in the past 2 weeks. Patient will be admitted to main covid unit, for acute hypoxic respiratory failure secondary Covid-19 infection, requiring Vapotherm eventually and is on 100% FiO2 on 40 L. . She has been started on remdesivir, Decadron and Lovenox and has been stable in her clinical condition 1. Acute hypoxemic respiratory failure second to Covid pneumonia: : Clinically improving slowly over the past few days, remains on Vapotherm, currently at 100% FiO2, will titrate down as tolerated. Continue Decadron, Remdesivir 2. . Diabetes mellitus. Levemir to 10 units at bedtime, continue sliding scale insulin coverage with meals and at bedtime 3. Hypertension. Continue Coreg DVT prophylaxis: Lovenox. Frequent pronating incentive spirometry and out of bed to chair 2 times a day. GI prophylaxis: PPI Disposition unknown at this time VS,Fishbone, I+O VS, Fishbone, I+O Laboratory Tests 08/16/20 07:46 Vital Signs Date Time Temp Pulse Resp B/P (MAP) Pulse Ox O2 Delivery O2 Flow Rate FiO2 08/16/20 11:38 95.9 80 20 125/78 (94) 88 HVNI-Vapotherm 35.0 100 I&O- Last 24 Hours up to 6 AM 08/16/20 06:00 Intake Total 1440 ml Output Total 1475 ml Balance -35 ml TERRELL GANNON MD Aug 16, 2020 12:00
[2020-08-16 20:00] VITALS: BP 114/74
[2020-08-16 20:23] VITALS: BP 114/74
[2020-08-16] MEDS: LEVEMIR (INSULIN DETEMIR) 1 UNITS/0.01ML SC SCH (21:18)
[2020-08-16] MEDS: QUEtiapine FUMARATE 50MG TAB PO SCH (21:19)
[2020-08-16 21:20] VITALS: BP 107/79
[2020-08-17] VITALS: BP 99/67
[2020-08-17 00:29] VITALS: BP 99/67
[2020-08-17 04:53] VITALS: BP 105/70
[2020-08-17 07:59] LABS: HEMATOCRIT 42.9 % (36.0-47.0); HEMOGLOBIN 13.8 g/dl (12.0-15.5); MEAN CORPUSCULAR HEMOGLOBIN 28.8 pg (27.0-33.0); MEAN CORPUSCULAR HGB CONC 32.2 g/dl (32.0-36.5); MEAN CORPUSCULAR VOLUME 89.4 fl (80.0-96.0); PLATELET COUNT, AUTOMATED 387 10^3/uL (150-450); WHITE BLOOD COUNT 9.8 10^3/uL (4.0-10.0)
[2020-08-17 08:00] VITALS: BP 96/67
[2020-08-17 08:30] LABS: ALBUMIN 2.5 GM/DL (3.2-5.2); ALT/SGPT 24 U/L (12-78); BILIRUBIN,TOTAL 0.8 MG/DL (0.2-1.0); BLOOD UREA NITROGEN 19 MG/DL (7-18); CALCIUM LEVEL 8.6 MG/DL (8.8-10.2); CARBON DIOXIDE LEVEL 27 MEQ/L (21-32); CHLORIDE LEVEL 105 MEQ/L (98-107); CREATININE FOR GFR 0.91 MG/DL (0.55-1.30); GLOMERULAR FILTRATION RATE > 60.0 (>45); GLUCOSE, FASTING 118 MG/DL (70-100); POTASSIUM SERUM 4.5 MEQ/L (3.5-5.1); SODIUM LEVEL 139 MEQ/L (136-145)
[2020-08-17] MEDS: REMDESIVIR 100 MG in NS 250 ML IV SCH (09:46)
[2020-08-17] MEDS: ENOXAPARIN 60MG/0.6ML SYRINGE (J1650 PER 10MG) SC SCH ×2 (09:47→20:06)
[2020-08-17] MEDS: HumaLOG INSULIN (NovoLOG) PER UNIT SC SCH ×4 (09:47→20:05)
[2020-08-17] MEDS: DULoxetine 30 MG CAP (CYMBALTA) PO SCH (09:49)
[2020-08-17] MEDS: CARVedilol 3.125 MG TAB PO SCH ×2 (09:49→20:06)
[2020-08-17] MEDS: dexameTHASONE 4 MG/ML 1ML VIAL (J1100 PER 1MG) IV SCH (09:50)
[2020-08-17] MEDS: GABAPENTIN 300 MG CAP PO SCH ×2 (09:50→20:06)
[2020-08-17 12:00] VITALS: BP 98/61
[2020-08-17] MEDS: PANTOPRAZOLE 40MG VIAL (C9113 PER 1) IV SCH (12:46)
[2020-08-17] MEDS: SODIUM CHLORIDE 0.9% INJ 10 ML SYR IV SCH (12:47)
--- NOTE | 2020-08-17 15:07 | IPNPDOC ---
Text Note Date of Service The patient was seen on 08/17/20. NOTE Subjective Comfortable, reports improvement in dyspnea, remains on Vapotherm at 90% FiO2. Tolerating her diet, no new complaints. Physical examination GENERAL: Obese, alert, oriented to time, place and person HEENT: Normocephalic, atraumatic, moist mucous membranes NECK: Supple CARDIOVASCULAR : S1, S2, no murmurs RESPIRATORY : Scattered rhonchi, no wheezing ABDOMINAL: Soft, nontender, nondistended, positive bowel sounds EXTREMITIES: Range of motion intact SKIN: No rash NEUROLOGICAL: Alert and oriented 3, no focal deficits PSYCHIATRIC : Calm and cooperative Labs reviewed Radiology reviewed Assessment and plan This is a 64 yo F with a hx of IBD (UC) s/p colectomy and ileostomy, DM2, obesity, who presents to [facility] ER with a week long history of progressively worse chepe shortness of breath, dry cough, subjective chills and malaise, She denies chest pain, palpitations, bleeding, n/v/d. On arrival to the ED, hypoxic to 80s, required 6L NC to maintain at 88%. She was sinus tachycardic on EKG in 115- 120 range. She denies any lower extremity pain or swelling, or prolonged periods of immobilization in the past 2 weeks. Patient will be admitted to main covid unit, for acute hypoxic respiratory failure secondary Covid-19 infection, requiring Vapotherm eventually and is on 90% FiO2 on 33 L. . She has been started on remdesivir, Decadron and Lovenox and has been stable in her clinical condition 1. Acute hypoxemic respiratory failure second to Covid pneumonia: : Clinically improving slowly over the past few days, remains on Vapotherm, currently at 90% FiO2, will titrate down as tolerated. Continue Decadron, Remdesivir for 10 days 2. . Diabetes mellitus. Levemir to 10 units at bedtime, continue sliding scale insulin coverage with meals and at bedtime 3. Hypertension. Continue Coreg DVT prophylaxis: Lovenox. Frequent pronating incentive spirometry and out of bed to chair 2 times a day. GI prophylaxis: PPI Disposition unknown at this time VS,Fishbone, I+O VS, Fishbone, I+O Laboratory Tests 08/17/20 06:59 Vital Signs Date Time Temp Pulse Resp B/P (MAP) Pulse Ox O2 Delivery O2 Flow Rate FiO2 1/13/21 09:49 90 109/69 08/17/20 09:47 33.0 90 08/17/20 08:00 98.5 19 85 HVNI-Vapotherm I&O- Last 24 Hours up to 6 AM 08/17/20 06:00 Intake Total 480 ml Output Total 1300 ml Balance -820 ml TERRELL GANNON MD Aug 17, 2020 15:07
[2020-08-17 20:02] VITALS: BP 126/82
[2020-08-17] MEDS: LEVEMIR (INSULIN DETEMIR) 1 UNITS/0.01ML SC SCH (20:04)
[2020-08-17] MEDS: QUEtiapine FUMARATE 50MG TAB PO SCH (20:06)
[2020-08-18 03:47] VITALS: BP 106/68
[2020-08-18 07:50] LABS: HEMATOCRIT 40.5 % (36.0-47.0); MEAN CORPUSCULAR HEMOGLOBIN 28.4 pg (27.0-33.0); MEAN CORPUSCULAR HGB CONC 32.1 g/dl (32.0-36.5); MEAN CORPUSCULAR VOLUME 88.6 fl (80.0-96.0); PLATELET COUNT, AUTOMATED 354 10^3/uL (150-450); RED BLOOD COUNT 4.57 10^6/uL (4.00-5.40); WHITE BLOOD COUNT 8.2 10^3/uL (4.0-10.0)
[2020-08-18] MEDS: PANTOPRAZOLE 40MG VIAL (C9113 PER 1) IV SCH (08:14)
[2020-08-18] MEDS: ENOXAPARIN 60MG/0.6ML SYRINGE (J1650 PER 10MG) SC SCH ×2 (08:15→20:05)
[2020-08-18] MEDS: dexameTHASONE 4 MG/ML 1ML VIAL (J1100 PER 1MG) IV SCH (08:17)
[2020-08-18] MEDS: DULoxetine 30 MG CAP (CYMBALTA) PO SCH (08:19)
[2020-08-18] MEDS: GABAPENTIN 300 MG CAP PO SCH ×2 (08:20→20:04)
[2020-08-18 08:24] LABS: ALBUMIN 2.1 GM/DL (3.2-5.2); ALT/SGPT 19 U/L (12-78); BILIRUBIN,TOTAL 0.8 MG/DL (0.2-1.0); BLOOD UREA NITROGEN 19 MG/DL (7-18); CALCIUM LEVEL 8.5 MG/DL (8.8-10.2); CARBON DIOXIDE LEVEL 26 MEQ/L (21-32); CHLORIDE LEVEL 108 MEQ/L (98-107); CREATININE FOR GFR 0.94 MG/DL (0.55-1.30); GLOMERULAR FILTRATION RATE > 60.0 (>45); GLUCOSE, FASTING 132 MG/DL (70-100); POTASSIUM SERUM 4.4 MEQ/L (3.5-5.1); SODIUM LEVEL 141 MEQ/L (136-145); TOTAL PROTEIN 6.6 GM/DL (6.4-8.2)
[2020-08-18] MEDS: CARVedilol 3.125 MG TAB PO SCH ×2 (09:00→20:05)
[2020-08-18] MEDS: HumaLOG INSULIN (NovoLOG) PER UNIT SC SCH ×4 (09:00→20:04)
[2020-08-18] MEDS: REMDESIVIR 100 MG in NS 250 ML IV SCH (09:30)
[2020-08-18] MEDS: SODIUM CHLORIDE 0.9% INJ 10 ML SYR IV SCH (11:24)
--- NOTE | 2020-08-18 12:58 | IPNPDOC ---
Text Note Date of Service The patient was seen on 08/18/20. NOTE Subjective Comfortable, reports improvement in dyspnea, remains on Vapotherm at 90% FiO2 only on 33 L, now. Tolerating her diet, no new complaints. Physical examination GENERAL: Obese, alert, oriented to time, place and person HEENT: Normocephalic, atraumatic, moist mucous membranes NECK: Supple CARDIOVASCULAR : S1, S2, no murmurs RESPIRATORY : Scattered rhonchi, no wheezing ABDOMINAL: Soft, nontender, nondistended, positive bowel sounds EXTREMITIES: Range of motion intact SKIN: No rash NEUROLOGICAL: Alert and oriented 3, no focal deficits PSYCHIATRIC : Calm and cooperative Labs reviewed Radiology reviewed Assessment and plan This is a 64 yo F with a hx of IBD (UC) s/p colectomy and ileostomy, DM2, obesity, who presents to [facility] ER with a week long history of progressively worsening shortness of breath, dry cough, subjective chills and malaise, She denies chest pain, palpitations, bleeding, n/v/d. On arrival to the ED, hypoxic to 80s, required 6L NC to maintain at 88%. She was sinus tachycardic on EKG in 115-120 range.Patient will be admitted to main covid unit, for acute hypoxic respiratory failure secondary Covid-19 infection, requiring Vapotherm eventually and is on 90% FiO2 on 33 L. . She has been started on remdesivir, Decadron and Lovenox and has been stable in her clinical condition. She is improving from respiratory status. 1. Acute hypoxemic respiratory failure second to Covid pneumonia: : Clinically improving slowly over the past few days, remains on Vapotherm, currently at 90% FiO2, but only on 33 L, now, will titrate down as tolerated. Continue Decadron, Remdesivir for 10 days. Continue Lovenox 0.5 mg EKG 1. Twice a day 2. . Diabetes mellitus. Levemir 10 units at bedtime, continue sliding scale insulin coverage with meals and at bedtime 3. Hypertension. Continue Coreg DVT prophylaxis: Lovenox. Frequent pronating incentive spirometry and out of bed to chair 2 times a day. GI prophylaxis: PPI Disposition unknown at this time VS,Fishbone, I+O VS, Fishbone, I+O Laboratory Tests 08/18/20 07:13 Vital Signs Date Time Temp Pulse Resp B/P (MAP) Pulse Ox O2 Delivery O2 Flow Rate FiO2 08/18/20 09:17 95 HVNI-Vapotherm 33.0 90 08/18/20 09:00 78 104/75 08/18/20 08:26 97.6 20 I&O- Last 24 Hours up to 6 AM 08/18/20 06:00 Intake Total 2590 ml Output Total 2425 ml Balance 165 ml TERRELL GANNON MD Aug 18, 2020 12:58
[2020-08-18 14:00] VITALS: BP 107/68
[2020-08-18 20:00] VITALS: BP 115/75
[2020-08-18] MEDS: LEVEMIR (INSULIN DETEMIR) 1 UNITS/0.01ML SC SCH (20:04)
[2020-08-18] MEDS: QUEtiapine FUMARATE 50MG TAB PO SCH (20:42)
[2020-08-19] VITALS (12 sets, daily range): BP systolic 87–120; BP diastolic 61–78; O2SAT 88–96
[2020-08-19] MEDS: HumaLOG INSULIN (NovoLOG) PER UNIT SC SCH ×4 (07:30→21:51)
[2020-08-19 08:42] LABS: HEMATOCRIT 41.6 % (36.0-47.0); HEMOGLOBIN 13.7 g/dl (12.0-15.5); MEAN CORPUSCULAR HEMOGLOBIN 29.3 pg (27.0-33.0); MEAN CORPUSCULAR HGB CONC 32.9 g/dl (32.0-36.5); MEAN CORPUSCULAR VOLUME 88.9 fl (80.0-96.0); PLATELET COUNT, AUTOMATED 372 10^3/uL (150-450); RED BLOOD COUNT 4.68 10^6/uL (4.00-5.40); WHITE BLOOD COUNT 8.9 10^3/uL (4.0-10.0)
[2020-08-19] MEDS: CARVedilol 3.125 MG TAB PO SCH ×2 (09:00→21:50)
[2020-08-19 09:01] LABS: ALBUMIN 2.2 GM/DL (3.2-5.2); ALT/SGPT 19 U/L (12-78); BILIRUBIN,TOTAL 0.7 MG/DL (0.2-1.0); BLOOD UREA NITROGEN 17 MG/DL (7-18); CALCIUM LEVEL 8.7 MG/DL (8.8-10.2); CARBON DIOXIDE LEVEL 28 MEQ/L (21-32); CHLORIDE LEVEL 107 MEQ/L (98-107); CREATININE FOR GFR 0.87 MG/DL (0.55-1.30); GLOMERULAR FILTRATION RATE > 60.0 (>45); GLUCOSE, FASTING 103 MG/DL (70-100); POTASSIUM SERUM 4.5 MEQ/L (3.5-5.1); SODIUM LEVEL 140 MEQ/L (136-145); TOTAL PROTEIN 5.9 GM/DL (6.4-8.2)
[2020-08-19] MEDS: GABAPENTIN 300 MG CAP PO SCH ×2 (10:21→21:50)
[2020-08-19] MEDS: DULoxetine 30 MG CAP (CYMBALTA) PO SCH (10:21)
[2020-08-19] MEDS: ENOXAPARIN 60MG/0.6ML SYRINGE (J1650 PER 10MG) SC SCH ×2 (10:21→21:52)
[2020-08-19] MEDS: REMDESIVIR 100 MG in NS 250 ML IV SCH (10:22)
[2020-08-19] MEDS: dexameTHASONE 4 MG/ML 1ML VIAL (J1100 PER 1MG) IV SCH (10:27)
[2020-08-19] MEDS: PANTOPRAZOLE 40MG VIAL (C9113 PER 1) IV SCH (10:28)
[2020-08-19] MEDS: SODIUM CHLORIDE 0.9% INJ 10 ML SYR IV SCH (10:28)
--- NOTE | 2020-08-19 12:27 | IPNPDOC ---
Text Note Date of Service The patient was seen on 08/19/20. NOTE Subjective Comfortable, rremains on Vapotherm at 80 % FiO2 only on 33 L, now. Tolerating her diet, no new complaints. Physical examination GENERAL: Obese, alert, oriented to time, place and person HEENT: Normocephalic, atraumatic, moist mucous membranes CARDIOVASCULAR : S1, S2, no murmurs RESPIRATORY : Scattered rhonchi, no wheezing ABDOMINAL: Soft, nontender, nondistended, positive bowel sounds, ileostomy bag present with soft stool in it EXTREMITIES: Range of motion intact SKIN: No rash NEUROLOGICAL: Alert and oriented 3, no focal deficits PSYCHIATRIC : Calm and cooperative Labs reviewed Radiology reviewed Assessment and plan This is a 64 yo F with a hx of IBD (UC) s/p colectomy and ileostomy, DM2, obesity, who presents to [facility] ER with a week long history of progressively worsening shortness of breath, dry cough, subjective chills and malaise, She denies chest pain, palpitations, bleeding, n/v/d. On arrival to the ED, hypoxic to 80s, required 6L NC to maintain at 88%. She was sinus tachycardic on EKG in 115-120 range.Patient will be admitted to main covid unit, for acute hypoxic respiratory failure secondary Covid-19 infection, requiring Vapotherm initially requiring the maximum 100% FiO2 and 40 L and now down to 80% FiO2 on 33 L. . She has been started on remdesivir 10 day course was finished on 08/20/20, Decadron and Lovenox 0.5/kg/body weight and has been stable in her clinical condition. She is improving from respiratory status. 1. Acute hypoxemic respiratory failure second to Covid pneumonia: : Clinically improving slowly over the past few days, remains on Vapotherm, currently at 80% FiO2, but only on 33 L, now, will titrate down as tolerated. Continue Decadron, Remdesivir for 10 days. Continue Lovenox 0.5 mg/kg twice a day 2. . Diabetes mellitus. Levemir 10 units at bedtime, continue sliding scale insulin coverage with meals and at bedtime 3. Hypertension. Continue Coreg 4. History of Crohn's. The patient has stable Crohn's and currently has a permanent ileostomy. Ileostomy care as per nursing DVT prophylaxis: Lovenox. Frequent pronating incentive spirometry and out of bed to chair 2 times a day. GI prophylaxis: PPI Disposition unknown at this time VS,Bre, I+O VS, Bre, I+O Laboratory Tests 08/19/20 07:54 Vital Signs Date Time Temp Pulse Resp B/P (MAP) Pulse Ox O2 Delivery O2 Flow Rate FiO2 08/19/20 11:00 91 Nasal Cannula 30.0 80 08/19/20 10:35 111/68 (82) 08/19/20 09:00 87 08/19/20 07:46 97.9 20 I&O- Last 24 Hours up to 6 AM 08/19/20 06:00 Intake Total 1750 ml Output Total 2350 ml Balance -600 ml TERRELL GANNON MD Aug 19, 2020 12:27
[2020-08-19] MEDS: QUEtiapine FUMARATE 50MG TAB PO SCH (21:49)
[2020-08-19] MEDS: LEVEMIR (INSULIN DETEMIR) 1 UNITS/0.01ML SC SCH (21:50)
[2020-08-20 03:30] VITALS: BP 102/66
[2020-08-20 07:46] LABS: HEMATOCRIT 39.3 % (36.0-47.0); HEMOGLOBIN 12.8 g/dl (12.0-15.5); MEAN CORPUSCULAR HEMOGLOBIN 28.6 pg (27.0-33.0); MEAN CORPUSCULAR HGB CONC 32.6 g/dl (32.0-36.5); MEAN CORPUSCULAR VOLUME 87.9 fl (80.0-96.0); PLATELET COUNT, AUTOMATED 354 10^3/uL (150-450); RED BLOOD COUNT 4.47 10^6/uL (4.00-5.40); WHITE BLOOD COUNT 8.4 10^3/uL (4.0-10.0)
[2020-08-20 08:00] VITALS: BP 93/66
[2020-08-20 08:17] LABS: ALBUMIN 2.2 GM/DL (3.2-5.2); ALT/SGPT 20 U/L (12-78); BILIRUBIN,TOTAL 0.6 MG/DL (0.2-1.0); BLOOD UREA NITROGEN 17 MG/DL (7-18); CALCIUM LEVEL 8.3 MG/DL (8.8-10.2); CARBON DIOXIDE LEVEL 28 MEQ/L (21-32); CHLORIDE LEVEL 109 MEQ/L (98-107); GLOMERULAR FILTRATION RATE > 60.0 (>45); GLUCOSE, FASTING 133 MG/DL (70-100); POTASSIUM SERUM 4.2 MEQ/L (3.5-5.1); SODIUM LEVEL 143 MEQ/L (136-145); TOTAL PROTEIN 5.6 GM/DL (6.4-8.2)
[2020-08-20] MEDS: DULoxetine 30 MG CAP (CYMBALTA) PO SCH (08:44)
[2020-08-20] MEDS: HumaLOG INSULIN (NovoLOG) PER UNIT SC SCH ×4 (08:45→20:32)
[2020-08-20] MEDS: ENOXAPARIN 60MG/0.6ML SYRINGE (J1650 PER 10MG) SC SCH ×2 (08:45→20:30)
[2020-08-20] MEDS: PANTOPRAZOLE 40MG VIAL (C9113 PER 1) IV SCH (08:45)
[2020-08-20] MEDS: dexameTHASONE 4 MG/ML 1ML VIAL (J1100 PER 1MG) IV SCH (08:46)
[2020-08-20] MEDS: GABAPENTIN 300 MG CAP PO SCH ×2 (08:46→20:32)
[2020-08-20] MEDS: REMDESIVIR 100 MG in NS 250 ML IV SCH (08:47)
[2020-08-20] MEDS: CARVedilol 3.125 MG TAB PO SCH ×2 (08:48→20:34)
[2020-08-20] MEDS: SODIUM CHLORIDE 0.9% INJ 10 ML SYR IV SCH (10:30)
--- NOTE | 2020-08-20 12:04 | IPNPDOC ---
Text Note Date of Service The patient was seen on 08/20/20. NOTE Subjective Comfortable, remains on Vapotherm only on 30 L, now. Tolerating her diet, no new complaints. Overall feels that she is recovering, feeling stronger, appetite better. BPs have been soft. Physical examination VITALS: as below GENERAL: Obese, alert, oriented to time, place and person HEENT: Normocephalic, atraumatic, moist mucous membranes CARDIOVASCULAR : S1, S2, no murmurs RESPIRATORY : Scattered rhonchi, no wheezing ABDOMINAL: Soft, nontender, nondistended, positive bowel sounds, ileostomy bag present with soft stool in it EXTREMITIES: Range of motion intact SKIN: No rash NEUROLOGICAL: Alert and oriented 3, no focal deficits PSYCHIATRIC : Calm and cooperative Labs reviewed Radiology reviewed Assessment and plan This is a 64 yo F with a hx of IBD (UC) s/p colectomy with ileostomy, DM2, obesity, BERNARD uses CPAP at home who presents to [facility] ER with a week long history of progressively worsening shortness of breath, dry cough, subjective chills and malaise, She denies chest pain, palpitations, bleeding, n/v/d. On arrival to the ED, hypoxic to 80s, required 6L NC to maintain at 88%. She was sinus tachycardic on EKG in 115-120 range.Patient will be admitted to main covid unit, for acute hypoxic respiratory failure secondary Covid-19 infection, requiring Vapotherm initially requiring the maximum 100% FiO2 and 40 L and now down to 80% FiO2 on 33 L. . She has been started on remdesivir 10 day course was finished on 08/20/20, Decadron and Lovenox 0.5/kg/body weight and has been stable in her clinical condition. She is improving from respiratory status. Acute hypoxemic respiratory failure second to Covid pneumonia: : Clinically improving slowly over the past few days, remains on Vapotherm, currently at 80% FiO2, but only on 30 L, now, will titrate down as tolerated. Continue Decadron, Remdesivir for 10 days. Continue Lovenox 0.5 mg/kg twice a day Diabetes mellitus. Sugars uncontrolled with dexamethasone increase Levemir 10 units BID, continue sliding scale insulin coverage with meals and at bedtime Hypertension. Continue Coreg with hold parameters History of Crohn's. The patient has stable Crohn's and currently has a permanent ileostomy. Ileostomy care as per nursing BERNARD: uses CPAP at home. May be more hypoxic during sleep. DVT prophylaxis: Lovenox. Frequent pronating incentive spirometry and out of bed to chair 2 times a day. GI prophylaxis: PPI Disposition unknown at this time VS,Leninbone, I+O VS, Leninbone, I+O Laboratory Tests 08/20/20 07:20 Vital Signs Date Time Temp Pulse Resp B/P (MAP) Pulse Ox O2 Delivery O2 Flow Rate FiO2 08/20/20 11:43 88 HVNI-Vapotherm 30.0 70 08/20/20 08:48 82 101/62 08/20/20 08:00 98.2 18 I&O- Last 24 Hours up to 6 AM 08/20/20 06:00 Intake Total 840 ml Output Total 525 ml Balance 315 ml JASON MONTEMAYOR MD Aug 20, 2020 12:04
[2020-08-20] MEDS: LEVEMIR (INSULIN DETEMIR) 1 UNITS/0.01ML SC SCH ×2 (12:49→20:30)
[2020-08-20 16:00] VITALS: BP 109/70
[2020-08-20 20:26] VITALS: BP 118/76
[2020-08-20] MEDS: QUEtiapine FUMARATE 50MG TAB PO SCH (20:32)
[2020-08-21 05:14] VITALS: BP 120/80
[2020-08-21 06:18] LABS: HEMATOCRIT 40.4 % (36.0-47.0); HEMOGLOBIN 13.3 g/dl (12.0-15.5); MEAN CORPUSCULAR HGB CONC 32.9 g/dl (32.0-36.5); MEAN CORPUSCULAR VOLUME 88.2 fl (80.0-96.0); PLATELET COUNT, AUTOMATED 340 10^3/uL (150-450); RED BLOOD COUNT 4.58 10^6/uL (4.00-5.40); WHITE BLOOD COUNT 9.7 10^3/uL (4.0-10.0)
[2020-08-21 06:46] LABS: ALBUMIN 2.2 GM/DL (3.2-5.2); BILIRUBIN,TOTAL 0.6 MG/DL (0.2-1.0); CALCIUM LEVEL 8.4 MG/DL (8.8-10.2); CREATININE FOR GFR 1.03 MG/DL (0.55-1.30); GLOMERULAR FILTRATION RATE 57.8 (>45); POTASSIUM SERUM 4.1 MEQ/L (3.5-5.1); TOTAL PROTEIN 5.8 GM/DL (6.4-8.2)
[2020-08-21] MEDS: CARVedilol 3.125 MG TAB PO SCH ×2 (09:00→22:10)
[2020-08-21] MEDS: LEVEMIR (INSULIN DETEMIR) 1 UNITS/0.01ML SC SCH ×2 (09:26→23:26)
[2020-08-21] MEDS: HumaLOG INSULIN (NovoLOG) PER UNIT SC SCH ×3 (09:27→18:29)
[2020-08-21] MEDS: ENOXAPARIN 60MG/0.6ML SYRINGE (J1650 PER 10MG) SC SCH ×2 (09:28→22:12)
[2020-08-21] MEDS: dexameTHASONE 4 MG/ML 1ML VIAL (J1100 PER 1MG) IV SCH (09:28)
[2020-08-21] MEDS: PANTOPRAZOLE 40MG TAB (PROTONIX) PO SCH (09:28)
[2020-08-21] MEDS: GABAPENTIN 300 MG CAP PO SCH ×2 (09:29→22:10)
[2020-08-21] MEDS: DULoxetine 30 MG CAP (CYMBALTA) PO SCH (09:29)
[2020-08-21 11:54] VITALS: BP 97/71
[2020-08-21 21:53] VITALS: BP 126/74
--- NOTE | 2020-08-21 21:53 | IPNPDOC ---
Text Note Date of Service The patient was seen on 08/21/20. NOTE Subjective Comfortable, Feeling better. Remains on Vapotherm only on 30 L, now. Overall feels that she is recovering, feeling stronger, appetite better. Sugars uncontrolld. Physical examination VITALS: as below GENERAL: Obese, alert, oriented to time, place and person HEENT: Normocephalic, atraumatic, moist mucous membranes CARDIOVASCULAR : S1, S2, no murmurs RESPIRATORY : Diminished breath sounds, No ronchi. has few basal crackles. ABDOMINAL: Soft, nontender, nondistended, positive bowel sounds, ileostomy bag present with soft stool in it. EXTREMITIES: Range of motion intact SKIN: No rash NEUROLOGICAL: Alert and oriented 3, no focal deficits PSYCHIATRIC : Calm and cooperative Labs and Radiology reviewed Assessment and plan: This is a 64 yo F with a hx of IBD (UC) s/p colectomy with ileostomy, DM2, obesity, BERNARD uses CPAP at home who presents to [facility] ER with a week long history of progressively worsening shortness of breath, dry cough, subjective chills and malaise, She denies chest pain, palpitations, bleeding, n/v/d. On arrival to the ED, hypoxic to 80s, required 6L NC to maintain at 88%. She was sinus tachycardic on EKG in 115-120 range.Patient will be admitted to main covid unit, for acute hypoxic respiratory failure secondary Covid-19 infection, requiring Vapotherm initially requiring the maximum 100% FiO2 and 40 L and now down to 80% FiO2 on 33 L. . She has been started on remdesivir 10 day course was finished on 08/20/20, Decadron and Lovenox 0.5/kg/body weight and has been stable in her clinical condition. She is improving from respiratory status. Acute hypoxemic respiratory failure second to Covid pneumonia: : Clinically improving slowly over the past few days, remains on Vapotherm, currently at 80% FiO2, but only on 30 L, now, will titrate down as tolerated. Continue Decadron, Remdesivir for 10 days. Continue Lovenox 0.5 mg/kg twice a day Diabetes mellitus. Sugars uncontrolled with dexamethasone increase Levemir 20 units BID, continue sliding scale insulin coverage with meals. Hypertension. Continue Coreg with hold parameters History of Crohn's. The patient has stable Crohn's and currently has a permanent ileostomy. Ileostomy care as per nursing BERNARD: uses CPAP at home. May be more hypoxic during sleep. DVT prophylaxis: Lovenox. Frequent pronating incentive spirometry and out of bed to chair 2 times a day. GI prophylaxis: PPI Disposition unknown at this time VS,Fishbone, I+O VS, Fishbone, I+O Laboratory Tests 08/21/20 05:39 Vital Signs Date Time Temp Pulse Resp B/P (MAP) Pulse Ox O2 Delivery O2 Flow Rate FiO2 08/21/20 16:29 91 HVNI-Vapotherm 30.0 70 08/21/20 11:54 97.8 87 19 97/71 (80) I&O- Last 24 Hours up to 6 AM 08/21/20 07:00 Intake Total 1590 ml Output Total 1575 ml Balance 15 ml JASON MONTEMAYOR MD Aug 21, 2020 21:53
[2020-08-21 21:55] VITALS: BP 126/74
[2020-08-21] MEDS: QUEtiapine FUMARATE 50MG TAB PO SCH (22:12)
[2020-08-21] MEDS ORDERED: HumaLOG INSULIN (NovoLOG) PER UNIT SC ONE (22:30)
[2020-08-22 06:18] VITALS: BP 115/79
[2020-08-22 08:00] VITALS: BP 106/76
[2020-08-22 08:24] LABS: HEMATOCRIT 41.4 % (36.0-47.0); HEMOGLOBIN 13.7 g/dl (12.0-15.5); MEAN CORPUSCULAR HEMOGLOBIN 29.3 pg (27.0-33.0); MEAN CORPUSCULAR HGB CONC 33.1 g/dl (32.0-36.5); MEAN CORPUSCULAR VOLUME 88.7 fl (80.0-96.0); PLATELET COUNT, AUTOMATED 336 10^3/uL (150-450); RED BLOOD COUNT 4.67 10^6/uL (4.00-5.40); WHITE BLOOD COUNT 11.3 10^3/uL (4.0-10.0)
[2020-08-22 08:55] LABS: ALBUMIN 2.3 GM/DL (3.2-5.2); BILIRUBIN,TOTAL 0.7 MG/DL (0.2-1.0); CALCIUM LEVEL 8.9 MG/DL (8.8-10.2); CREATININE FOR GFR 1.04 MG/DL (0.55-1.30); GLOMERULAR FILTRATION RATE 57.2 (>45); TOTAL PROTEIN 5.7 GM/DL (6.4-8.2)
[2020-08-22] MEDS: CARVedilol 3.125 MG TAB PO SCH ×2 (09:00→19:57)
[2020-08-22] MEDS: HumaLOG INSULIN (NovoLOG) PER UNIT SC SCH ×4 (10:01→19:56)
[2020-08-22] MEDS: LEVEMIR (INSULIN DETEMIR) 1 UNITS/0.01ML SC SCH ×2 (10:02→17:03)
[2020-08-22] MEDS: ENOXAPARIN 60MG/0.6ML SYRINGE (J1650 PER 10MG) SC SCH ×2 (10:02→19:57)
[2020-08-22] MEDS: GABAPENTIN 300 MG CAP PO SCH ×2 (10:03→19:57)
[2020-08-22] MEDS: DULoxetine 30 MG CAP (CYMBALTA) PO SCH (10:03)
[2020-08-22] MEDS: dexameTHASONE 4 MG/ML 1ML VIAL (J1100 PER 1MG) IV SCH (10:04)
[2020-08-22] MEDS: PANTOPRAZOLE 40MG TAB (PROTONIX) PO SCH (10:04)
--- NOTE | 2020-08-22 11:11 | REP ---
INDICATION: covid + COMPARISON: 08/16/2020 TECHNIQUE: Portable AP view of the chest FINDINGS: Scattered moderate bilateral pulmonary opacities which show slight variation in pattern but overall relatively similar overall extent. No effusion. No pneumothorax. No cardiomegaly. Skeletal structures are intact. IMPRESSION: Continued bilateral pulmonary opacities relatively similar to prior examination when allowing for variation in technique. <Electronically signed by Marciano Lopez > 08/22/20 1103
[2020-08-22] MEDS ORDERED: FUROSEMIDE 20MG/2ML VIAL (J1940) IV ONE (13:15)
--- NOTE | 2020-08-22 13:42 | IPNPDOC ---
Text Note Date of Service The patient was seen on 08/22/20. NOTE Subjective: Patient seen and examined at bedside today. Patient is feeling better, no overnight events, says her appetite is better and eating well. Physical examination: General: Patient is awake, alert, oriented times three, laying in, no apparent distress. Head and neck : Conjunctiva clear, pupils equal round and reactive to light. Moist mucous membrane. Cardiovascular: S1, S2, normal rhythm, no murmur. Respiratory: Diminished breath sounds, few basal crackles heard, no rhonchi or wheezes. Abdomen: Soft, bowel sounds positive, No tenderness on palpation. Ileostomy bag present Extremities: No clubbing. No edema, no tenderness. Central nervous system (CLINICAL SYSTEMS EDUCATOR): Awake, alert and fully oriented. No focal deficits Labs and radiology reviewed: Chest x-ray: 08/22/2020 reported as continued bilateral pulmonary opacities related to be similar to prior examination when allowing for variation in technique. Assessment: This is a 64 yo F with a hx of IBD (UC) s/p colectomy with ileostomy, DM2, obesity, BERNARD uses CPAP at home who presents to [facility] ER with a week long history of progressively worsening shortness of breath, dry cough, subjective chills and malaise, She denies chest pain, palpitations, bleeding, n/v/d. On arrival to the ED, hypoxic to 80s, required 6L NC to maintain at 88%. She was sinus tachycardic on EKG in 115-120 range.Patient will be admitted to main covid unit, for acute hypoxic respiratory failure secondary Covid-19 infection, requiring Vapotherm initially requiring the maximum 100% FiO2 and 40 L and now down to 80% FiO2 on 33 L. . She has been started on remdesivir 10 day course was finished on 08/20/20, Decadron and Lovenox 0.5/kg/body weight and has been stable in her clinical condition. She is improving from respiratory status. Acute hypoxic respiratory failure 2/2 Covid 19: - Patient is still on Vapotherm 30 L on 70% FiO2, slowly improving, we will try to titrate down as tolerated. - Today is day 9 of dexamethasone. - She completed remdesivir on 08/20/20. - continue lovenox 50mg bid. - will give her IV lasix 20 one time dose, given her basal crackles. - Given her mild elevation in white count from yesterday a repeat chest x-ray and pro-calcitonin was ordered. Diabetes mellitus: - Continue sliding scale insulin. - Given her uncontrolled sugars with dexamethasone Levemir was increased 20 units twice a day. Hypertension: - Continue Coreg. IBD[ ulcerative colitis/Crohn's]: Patient has stable Crohn's and currently has a permanent ileostomy. Ileostomy care as per nursing BERNARD: - Use home CPAP DVT prophylaxis: - Lovenox 50 MG twice a day Frequent pronating, intensive spirometry and out of bed to chair encouraged. VS,Fishbone, I+O VS, Fishbone, I+O Laboratory Tests 08/22/20 07:51 Vital Signs Date Time Temp Pulse Resp B/P (MAP) Pulse Ox O2 Delivery O2 Flow Rate FiO2 08/22/20 09:00 97 106/76 08/22/20 08:00 98.7 18 90 HVNI-Vapotherm 30.0 70 I&O- Last 24 Hours up to 6 AM 08/22/20 06:00 Intake Total 2075 ml Output Total 1450 ml Balance 625 ml GME ATTESTATION GME ATTESTATION My faculty preceptor for this patient encounter was physically present during the encounter and was fully available. All aspects of the patient interview, examination, medical decision making process, and medical care plan development were reviewed and approved by the faculty preceptor. The faculty preceptor is aware and concurs with the plan as stated in the body of this note and will attest to such by his/her cosignature. ATTENDING NOTE I, Spencer Gannon MD, have independently examined this patient and performed my own physical exam, as well as reviewed the documentation and edited where necessary. I have discussed in detail with the resident / student the findings and plan of treatment as documented by the resident / student and edited their note. I agree with their findings and treatment plan and have edited their documentation. Brook Cervantes MD Aug 22, 2020 13:42 SPENCER GANNON MD Aug 26, 2020 13:34
[2020-08-22 16:00] VITALS: BP 115/78
[2020-08-22] MEDS ORDERED: HumaLOG INSULIN (NovoLOG) PER UNIT SC SCH (17:30)
[2020-08-22 19:54] VITALS: BP 102/70
[2020-08-22] MEDS: QUEtiapine FUMARATE 50MG TAB PO SCH (19:57)
[2020-08-22] MEDS ORDERED: LEVEMIR (INSULIN DETEMIR) 1 UNITS/0.01ML SC ONE (21:00)
[2020-08-23 04:21] VITALS: BP 113/71
[2020-08-23 07:25] LABS: BASO # 0.1 10^3/uL (0.0-0.2); BASO % 0.5 % (0.0-1.0); EOS # 0.1 10^3/uL (0.0-0.5); EOS % 0.9 % (0.0-3.0); HEMATOCRIT 41.8 % (36.0-47.0); HEMOGLOBIN 13.9 g/dl (12.0-15.5); LYMPH # 2.6 10^3/uL (1.5-5.0); LYMPH % 20.1 % (24.0-44.0); MEAN CORPUSCULAR HEMOGLOBIN 29.1 pg (27.0-33.0); MEAN CORPUSCULAR HGB CONC 33.3 g/dl (32.0-36.5); MEAN CORPUSCULAR VOLUME 87.6 fl (80.0-96.0); MONO # 1.2 10^3/uL (0.0-0.8); MONO % 9.4 % (0.0-5.0); NEUTROPHILS # 8.7 10^3/uL (1.5-8.5); NEUTROPHILS % 67.2 % (36.0-66.0); PLATELET COUNT, AUTOMATED 344 10^3/uL (150-450); RED BLOOD COUNT 4.77 10^6/uL (4.00-5.40); WHITE BLOOD COUNT 12.9 10^3/uL (4.0-10.0)
[2020-08-23 07:52] LABS: BLOOD UREA NITROGEN 26 MG/DL (7-18); CALCIUM LEVEL 8.9 MG/DL (8.8-10.2); CARBON DIOXIDE LEVEL 30 MEQ/L (21-32); CHLORIDE LEVEL 106 MEQ/L (98-107); CREATININE FOR GFR 0.99 MG/DL (0.55-1.30); GLOMERULAR FILTRATION RATE > 60.0 (>45); GLUCOSE, FASTING 137 MG/DL (70-100); POTASSIUM SERUM 3.9 MEQ/L (3.5-5.1); SODIUM LEVEL 140 MEQ/L (136-145)
[2020-08-23 08:00] VITALS: BP 108/74
[2020-08-23] MEDS: HumaLOG INSULIN (NovoLOG) PER UNIT SC SCH ×4 (08:51→21:21)
[2020-08-23] MEDS: LEVEMIR (INSULIN DETEMIR) 1 UNITS/0.01ML SC SCH ×2 (08:51→21:22)
[2020-08-23] MEDS: ENOXAPARIN 60MG/0.6ML SYRINGE (J1650 PER 10MG) SC SCH ×2 (08:52→21:20)
[2020-08-23] MEDS: GABAPENTIN 300 MG CAP PO SCH ×2 (08:53→21:20)
[2020-08-23] MEDS: PANTOPRAZOLE 40MG TAB (PROTONIX) PO SCH (08:53)
[2020-08-23] MEDS: DULoxetine 30 MG CAP (CYMBALTA) PO SCH (08:53)
[2020-08-23] MEDS: dexameTHASONE 4 MG/ML 1ML VIAL (J1100 PER 1MG) IV SCH (08:54)
[2020-08-23] MEDS: CARVedilol 3.125 MG TAB PO SCH ×2 (08:55→21:20)
--- NOTE | 2020-08-23 11:39 | IPNPDOC ---
Text Note Date of Service The patient was seen on 08/23/20. NOTE subjective: Patient seen and examined at bedside today. Patient is doing well, she reports her work of breathing has also been improved, she is eating well, in no acute events overnight. Physical examination: General: Patient is awake, alert, oriented times three, laying in, no apparent distress. Head and neck : Conjunctiva clear, pupils equal round and reactive to light. M oist mucous membrane. Cardiovascular: S1, S2, normal rhythm, no murmur. Respiratory: Clear breath sounds are heard and upper lobes, mildly diminished breath sounds in lower lobes, no crackles,rhonchi or wheezes. Abdomen: Soft, bowel sounds positive, No tenderness on palpation. Ileostomy bag present Extremities: No clubbing. No edema, no tenderness. Central nervous system (FOUNTAIN ATTENDANT): Awake, alert and fully oriented. No focal deficits Assessment: This is a 64 yo F with a hx of IBD (UC) s/p colectomy with ileostomy, DM2, obesity, BERNARD uses CPAP at home who presents to [facility] ER with a week long history of progressively worsening shortness of breath, dry cough, subjective chills and malaise, She denies chest pain, palpitations, bleeding, n/v/d. On arrival to the ED, hypoxic to 80s, required 6L NC to maintain at 88%. She was sinus tachycardic on EKG in 115-120 range.Patient will be admitted to main covid unit, for acute hypoxic respiratory failure secondary Covid-19 infection, requiring Vapotherm initially requiring the maximum 100% FiO2 and 40 L and now down to 50% FiO2 on 20L. She has been started on remdesivir 10 day course was finished on 08/20/20, Decadron and Lovenox 0.5/kg/body weight and has been stable in her clinical condition. She is improving from respiratory status. Acute hypoxic respiratory failure 2/2 Covid 19: - Patient is still on Vapotherm, and 20 L and 50% FiO2 better than yesterday. We will try to titrate down as tolerated. - Day 10 of dexamethasone - Continue Lovenox 50 MG twice a day - Slight Elevation in white count 12.9, and her repeat chest x-ray yesterday was similar to the earlier once and her pro calcitonin is negative. Diabetes mellitus: - On sliding scale. - Consistent carb diet hypertension: -Continue Coreg IBD - Patient has stable Crohn's and currently has a permanent ileostomy. BERNARD: - On home CPAP DVT prophylaxis: - On Lovenox 50 MG twice a day Encourage patient to do incentive spirometry and out of bed to chair. Disposition: Patient is going the right way, If tolerating will try to wean her down and off Vapotherm slowly. VS,Fishbone, I+O VS, Fishbone, I+O Laboratory Tests 08/23/20 06:49 Vital Signs Date Time Temp Pulse Resp B/P (MAP) Pulse Ox O2 Delivery O2 Flow Rate FiO2 08/23/20 11:31 89 HVNI-Vapotherm 18.0 50 08/23/20 08:55 94 108/74 08/23/20 08:00 97.9 18 I&O- Last 24 Hours up to 6 AM 08/23/20 05:59 Intake Total 2280 ml Output Total 2475 ml Balance -195 ml GME ATTESTATION GME ATTESTATION My faculty preceptor for this patient encounter was physically present during e encounter and was fully available. All aspects of the patient interview, examination, medical decision making process, and medical care plan development were reviewed and approved by the faculty preceptor. The faculty preceptor is aware and concurs with the plan as stated in the body of this note and will attest to such by his/her cosignature. ATTENDING NOTE I, Spencer Gannon MD, have independently examined this patient and performed my own physical exam, as well as reviewed the documentation and edited where necessary. I have discussed in detail with the resident / student the findings and plan of treatment as documented by the resident / student and edited their note. I agree with their findings and treatment plan and have edited their documentation. Brook Cervantes MD Aug 23, 2020 11:39 SPENCER GANNON MD Aug 26, 2020 13:34
[2020-08-23 12:40] VITALS: BP 127/84
[2020-08-23 14:00] VITALS: BP 127/84
[2020-08-23 19:46] VITALS: BP 118/80
[2020-08-23] MEDS: QUEtiapine FUMARATE 50MG TAB PO SCH (21:20)
[2020-08-23 22:00] VITALS: O2SAT 90
[2020-08-24] VITALS (10 sets, daily range): BP systolic 110–122; BP diastolic 74–84; O2SAT 89–93
[2020-08-24 06:37] LABS: BASO # 0.1 10^3/uL (0.0-0.2); BASO % 0.7 % (0.0-1.0); EOS # 0.2 10^3/uL (0.0-0.5); EOS % 1.3 % (0.0-3.0); HEMATOCRIT 39.9 % (36.0-47.0); LYMPH # 2.6 10^3/uL (1.5-5.0); MEAN CORPUSCULAR HEMOGLOBIN 28.4 pg (27.0-33.0); MEAN CORPUSCULAR HGB CONC 32.6 g/dl (32.0-36.5); MEAN CORPUSCULAR VOLUME 87.1 fl (80.0-96.0); MONO # 1.2 10^3/uL (0.0-0.8); MONO % 8.6 % (0.0-5.0); NEUTROPHILS # 9.4 10^3/uL (1.5-8.5); NEUTROPHILS % 68.3 % (36.0-66.0); PLATELET COUNT, AUTOMATED 318 10^3/uL (150-450); RED BLOOD COUNT 4.58 10^6/uL (4.00-5.40); WHITE BLOOD COUNT 13.8 10^3/uL (4.0-10.0)
[2020-08-24 07:02] LABS: BLOOD UREA NITROGEN 26 MG/DL (7-18); CALCIUM LEVEL 8.8 MG/DL (8.8-10.2); CARBON DIOXIDE LEVEL 28 MEQ/L (21-32); CHLORIDE LEVEL 105 MEQ/L (98-107); CREATININE FOR GFR 0.95 MG/DL (0.55-1.30); GLOMERULAR FILTRATION RATE > 60.0 (>45); GLUCOSE, FASTING 148 MG/DL (70-100); POTASSIUM SERUM 4.2 MEQ/L (3.5-5.1); SODIUM LEVEL 139 MEQ/L (136-145)
[2020-08-24] MEDS: CARVedilol 3.125 MG TAB PO SCH ×2 (08:41→21:06)
[2020-08-24] MEDS: DULoxetine 30 MG CAP (CYMBALTA) PO SCH (08:45)
[2020-08-24] MEDS: GABAPENTIN 300 MG CAP PO SCH ×2 (08:45→21:05)
[2020-08-24] MEDS: PANTOPRAZOLE 40MG TAB (PROTONIX) PO SCH (08:45)
[2020-08-24] MEDS: ENOXAPARIN 60MG/0.6ML SYRINGE (J1650 PER 10MG) SC SCH (08:46)
[2020-08-24] MEDS: dexameTHASONE 4 MG/ML 1ML VIAL (J1100 PER 1MG) IV SCH (08:46)
[2020-08-24] MEDS: HumaLOG INSULIN (NovoLOG) PER UNIT SC SCH ×4 (08:46→21:07)
[2020-08-24] MEDS: LEVEMIR (INSULIN DETEMIR) 1 UNITS/0.01ML SC SCH ×2 (08:47→21:07)
--- NOTE | 2020-08-24 11:25 | IPNPDOC ---
Text Note Date of Service The patient was seen on 08/24/20. NOTE Subjective: Patient examined and seen at bedside today. Patient is doing well she denies having any symptoms and she is gradually improving and her oxygen requirement has been gradually decreasing as well. She has no acute events, eating well, and eager to go home. Physical examination: General: Patient is awake, alert, oriented times three, laying in, no apparent distress. Head and neck : Conjunctiva clear, pupils equal round and reactive to light. Moist mucous membrane. Cardiovascular: S1, S2, normal rhythm, no murmur. Respiratory: Clear breath sounds are heard and upper lobes, slightly diminished breath sounds in lower lobes, no crackles,rhonchi or wheezes. Abdomen: Soft, bowel sounds positive, No tenderness on palpation. Ileostomy bag present Extremities: No clubbing. No edema, no tenderness. Central nervous system (ANIMAL BOUNTY HUNTER): Awake, alert and fully oriented. No focal deficits Assessment: This is a 64 yo F with a hx of IBD (UC) s/p colectomy with ileostomy, DM2, obesity, BERNARD uses CPAP at home who presents to [facility] ER with a week long history of progressively worsening shortness of breath, dry cough, subjective chills and malaise, She denies chest pain, palpitations, bleeding, n/v/d. On arrival to the ED, hypoxic to 80s, required 6L NC to maintain at 88%. She was sinus tachycardic on EKG in 115-120 range.Patient will be admitted to main covid unit, for acute hypoxic respiratory failure secondary Covid-19 infection, requiring Vapotherm initially requiring the maximum 100% FiO2 and 40 L and now down to 50 % FiO2 on 12 L. She has been started on remdesivir 10 day course was finished on 08/20/20, Decadron and Lovenox 60 MG twice a day. Acute hypoxic respiratory failure 2/2 Covid 19: - Patient is still on Vapotherm, and 12 L and 50% FiO2 better than yesterday. We will try to titrate down as tolerated. - Day 11 of dexamethasone - Decrease her Lovenox to 40 MG twice a day given her d-dimer is less than 270. - Slight Elevation in white count 13.8, likely due to her steroids. She is clinically improving and I am not concerned about slight elevation of white count. Diabetes mellitus: - On sliding scale. - Consistent carb diet hypertension: -Continue Coreg IBD - Patient has stable Crohn's and currently has a permanent ileostomy. BERNARD: - On home CPAP DVT prophylaxis: - On Lovenox 40 MG twice a day Encourage patient to do incentive spirometry and out of bed to chair. Disposition: Will try to wean her off Vapotherm gradually and see how she does on nasal cannula, anticipated discharge in 3-4 days, as patient is moving in the right direction. VS,Fishbone, I+O VS, Fishbone, I+O Laboratory Tests 08/24/20 05:53 Vital Signs Date Time Temp Pulse Resp B/P (MAP) Pulse Ox O2 Delivery O2 Flow Rate FiO2 08/24/20 09:45 93 HVNI-Vapotherm 12.0 50 08/24/20 08:41 93 110/75 08/24/20 08:06 98.1 17 I&O- Last 24 Hours up to 6 AM 08/24/20 06:00 Intake Total 1740 ml Output Total 700 ml Balance 1040 ml GME ATTESTATION GME ATTESTATION My faculty preceptor for this patient encounter was physically present during the encounter and was fully available. All aspects of the patient interview, examination, medical decision making process, and medical care plan development were reviewed and approved by the faculty preceptor. The faculty preceptor is aware and concurs with the plan as stated in the body of this note and will attest to such by his/her cosignature. ATTENDING NOTE I, Spencer Gannon MD, have independently examined this patient and performed my own physical exam, as well as reviewed the documentation and edited where necessary. I have discussed in detail with the resident / student the findings and plan of treatment as documented by the resident / student and edited their note. I agree with their findings and treatment plan and have edited their documentation. Brook Cervantes MD Aug 24, 2020 11:25 SPENCER GANNON MD Aug 26, 2020 13:35
[2020-08-24] MEDS: QUEtiapine FUMARATE 50MG TAB PO SCH (21:05)
[2020-08-24] MEDS: ENOXAPARIN 40MG/0.4ML SYRINGE (J1650 PER 10MG) SC SCH (21:06)
[2020-08-25] VITALS (17 sets, daily range): BP systolic 110–118; BP diastolic 71–80; O2SAT 90–96
[2020-08-25 07:48] LABS: BASO # 0.1 10^3/uL (0.0-0.2); BASO % 0.6 % (0.0-1.0); EOS # 0.2 10^3/uL (0.0-0.5); EOS % 1.1 % (0.0-3.0); HEMATOCRIT 39.3 % (36.0-47.0); LYMPH # 2.8 10^3/uL (1.5-5.0); LYMPH % 19.7 % (24.0-44.0); MEAN CORPUSCULAR HEMOGLOBIN 29.3 pg (27.0-33.0); MEAN CORPUSCULAR HGB CONC 33.1 g/dl (32.0-36.5); MEAN CORPUSCULAR VOLUME 88.5 fl (80.0-96.0); MONO # 1.1 10^3/uL (0.0-0.8); MONO % 8.1 % (0.0-5.0); NEUTROPHILS # 9.6 10^3/uL (1.5-8.5); NEUTROPHILS % 68.2 % (36.0-66.0); PLATELET COUNT, AUTOMATED 292 10^3/uL (150-450); RED BLOOD COUNT 4.44 10^6/uL (4.00-5.40); WHITE BLOOD COUNT 14.1 10^3/uL (4.0-10.0)
[2020-08-25 08:17] LABS: BLOOD UREA NITROGEN 27 MG/DL (7-18); CALCIUM LEVEL 8.9 MG/DL (8.8-10.2); CARBON DIOXIDE LEVEL 27 MEQ/L (21-32); CHLORIDE LEVEL 104 MEQ/L (98-107); CREATININE FOR GFR 0.92 MG/DL (0.55-1.30); GLOMERULAR FILTRATION RATE > 60.0 (>45); GLUCOSE, FASTING 161 MG/DL (70-100); POTASSIUM SERUM 4.2 MEQ/L (3.5-5.1); SODIUM LEVEL 141 MEQ/L (136-145)
[2020-08-25] MEDS: LEVEMIR (INSULIN DETEMIR) 1 UNITS/0.01ML SC SCH ×2 (08:50→20:34)
[2020-08-25] MEDS: HumaLOG INSULIN (NovoLOG) PER UNIT SC SCH ×4 (08:50→20:34)
[2020-08-25] MEDS: DULoxetine 30 MG CAP (CYMBALTA) PO SCH (08:51)
[2020-08-25] MEDS: GABAPENTIN 300 MG CAP PO SCH ×2 (08:51→20:32)
[2020-08-25] MEDS: PANTOPRAZOLE 40MG TAB (PROTONIX) PO SCH (08:51)
[2020-08-25] MEDS: CARVedilol 3.125 MG TAB PO SCH ×2 (08:52→20:32)
[2020-08-25] MEDS: ENOXAPARIN 40MG/0.4ML SYRINGE (J1650 PER 10MG) SC SCH ×3 (08:53→20:35)
--- NOTE | 2020-08-25 11:08 | IPNPDOC ---
Text Note Date of Service The patient was seen on 08/25/20. NOTE Subjective: Patient seen and examined at bedside today. Patient is eager to go home and does not want to stay here over the weekend. She is on Vapotherm on 12 L and 50% FiO2 saturating at 95%. We will gradually time to bring her down to nasal cannula. She has to be 4 L or less of oxygen on nasal cannula to be going home. In this conversation she was dropping to 89 on 12 L and 50% FiO2 on Vapotherm, Conveyed the consensus to her if discharged early she might again come back to the ED. Physical examination: General: Patient is awake, alert, oriented times three, laying in, no apparent distress. Head and neck : Conjunctiva clear, pupils equal round and reactive to light. Moist mucous membrane. Cardiovascular: S1, S2, normal rhythm, no murmur. Respiratory: Clear breath sounds are heard and upper lobes, slightly diminished breath sounds in lower lobes, no crackles, rhonchi or wheezes. Abdomen: Soft, bowel sounds positive, No tenderness on palpation. Ileostomy bag present Extremities: No clubbing. No edema, no tenderness. Central nervous system (BUSINESS PROFESSOR): Awake, alert and fully oriented. No focal deficits Assessment: This is a 64 yo F with a hx of IBD (UC) s/p colectomy with ileostomy, DM2, obesity, BERNARD uses CPAP at home who presents to [facility] ER with a week long history of progressively worsening shortness of breath, dry cough, subjective chills and malaise, She denies chest pain, palpitations, bleeding, n/v/d. On arrival to the ED, hypoxic to 80s, required 6L NC to maintain at 88%. She was sinus tachycardic on EKG in 115-120 range.Patient will be admitted to main covid unit, for acute hypoxic respiratory failure secondary Covid-19 infection, requiring Vapotherm initially requiring the maximum 100% FiO2 and 40 L and now down to 50 % FiO2 on 12 L. She has been started on remdesivir 10 day course was finished on 08/20/20, Decadron and Lovenox 60 MG twice a day. Acute hypoxic respiratory failure 2/2 Covid 19: - Patient is still on Vapotherm, and 12 L and 50% FiO2 same as yesterday. We will try to titrate down as tolerated. - Day 12 of dexamethasone - Will continue Lovenox 40 MG twice a day. Diabetes mellitus: - On sliding scale. - Consistent carb diet hypertension: -Continue Coreg IBD - Patient has stable Crohn's and currently has a permanent ileostomy. BERNARD: - On home CPAP DVT prophylaxis: - On Lovenox 40 MG twice a day Encourage patient to do incentive spirometry and out of bed to chair. Disposition: Patient is eager to go home and does not want to stay here the weekend. will try to wean her down to nasal cannula today. She will be ready to go home when and if she is requiring 4 or less than 4 of oxygen. Explained the same to the patient. Encouraged her to do incentive spirometry. VS,Fishbone, I+O VS, Fishbone, I+O Laboratory Tests 08/25/20 05:46 Vital Signs Date Time Temp Pulse Resp B/P (MAP) Pulse Ox O2 Delivery O2 Flow Rate FiO2 08/25/20 08:00 97.0 91 18 114/78 (90) 91 HVNI-Vapotherm 12.0 50 I&O- Last 24 Hours up to 6 AM 08/25/20 06:00 Intake Total 1060 ml Output Total 1200 ml Balance -140 ml GME ATTESTATION GME ATTESTATION My faculty preceptor for this patient encounter was physically present during the encounter and was fully available. All aspects of the patient interview, examination, medical decision making process, and medical care plan development were reviewed and approved by the faculty preceptor. The faculty preceptor is aware and concurs with the plan as stated in the body of this note and will attest to such by his/her cosignature. ATTENDING NOTE I, Spencer Gannon MD, have independently examined this patient and performed my own physical exam, as well as reviewed the documentation and edited where necessary. I have discussed in detail with the resident / student the findings and plan of treatment as documented by the resident / student and edited their note. I agree with their findings and treatment plan and have edited their documentation. Brook Cervantes MD Aug 25, 2020 11:08 SPENCER GANNON MD Aug 26, 2020 13:35
[2020-08-25] MEDS: QUEtiapine FUMARATE 50MG TAB PO SCH (20:31)
[2020-08-26] VITALS (10 sets, daily range): BP systolic 117–152; BP diastolic 75–88; O2SAT 91–94
[2020-08-26 06:41] LABS: BASO # 0.1 10^3/uL (0.0-0.2); BASO % 0.6 % (0.0-1.0); EOS # 0.1 10^3/uL (0.0-0.5); EOS % 0.9 % (0.0-3.0); HEMATOCRIT 39.6 % (36.0-47.0); HEMOGLOBIN 12.9 g/dl (12.0-15.5); LYMPH # 2.4 10^3/uL (1.5-5.0); LYMPH % 18.9 % (24.0-44.0); MEAN CORPUSCULAR HEMOGLOBIN 28.9 pg (27.0-33.0); MEAN CORPUSCULAR HGB CONC 32.6 g/dl (32.0-36.5); MEAN CORPUSCULAR VOLUME 88.8 fl (80.0-96.0); MONO % 7.9 % (0.0-5.0); NEUTROPHILS # 8.9 10^3/uL (1.5-8.5); NEUTROPHILS % 69.9 % (36.0-66.0); PLATELET COUNT, AUTOMATED 269 10^3/uL (150-450); RED BLOOD COUNT 4.46 10^6/uL (4.00-5.40); WHITE BLOOD COUNT 12.7 10^3/uL (4.0-10.0)
[2020-08-26 07:04] LABS: BLOOD UREA NITROGEN 23 MG/DL (7-18); CALCIUM LEVEL 8.5 MG/DL (8.8-10.2); CARBON DIOXIDE LEVEL 29 MEQ/L (21-32); CHLORIDE LEVEL 105 MEQ/L (98-107); GLOMERULAR FILTRATION RATE > 60.0 (>45); GLUCOSE, FASTING 135 MG/DL (70-100); POTASSIUM SERUM 4.2 MEQ/L (3.5-5.1); SODIUM LEVEL 140 MEQ/L (136-145)
[2020-08-26] MEDS: HumaLOG INSULIN (NovoLOG) PER UNIT SC SCH ×4 (08:32→20:52)
[2020-08-26] MEDS: LEVEMIR (INSULIN DETEMIR) 1 UNITS/0.01ML SC SCH ×2 (08:32→20:51)
[2020-08-26] MEDS: PANTOPRAZOLE 40MG TAB (PROTONIX) PO SCH (08:33)
[2020-08-26] MEDS: GABAPENTIN 300 MG CAP PO SCH ×2 (08:33→20:50)
[2020-08-26] MEDS: DULoxetine 30 MG CAP (CYMBALTA) PO SCH (08:33)
[2020-08-26] MEDS: CARVedilol 3.125 MG TAB PO SCH ×2 (08:34→20:50)
[2020-08-26] MEDS: ENOXAPARIN 40MG/0.4ML SYRINGE (J1650 PER 10MG) SC SCH ×2 (08:34→20:51)
--- NOTE | 2020-08-26 11:37 | IPNPDOC ---
Text Note Date of Service The patient was seen on 08/26/20. NOTE Patient was tested positive for Covid on August 10. Subjective: Patient seen and examined at bedside today. Patient is very upset and weeping that she wants to go home, doesn't want to stay over the weekend in the hospital. But patient is still on Vapotherm on 10 L and 50% FiO2 saturating at lower 90s. She even mentions wanting to leave AMA at one point but explained in detail her high requirement of oxygen might bring back her to the ED. She voiced understanding and agreed to stay over the weekend in the hospital. We will try to decrease her FiO2 and see how she does. She denies having any overnight issues, eating well. Physical examination: General: Patient is awake, alert, oriented times three, laying in, very upset and wanted to go home. Head and neck : Conjunctiva clear, pupils equal round and reactive to light. Moist mucous membrane. Cardiovascular: S1, S2, normal rhythm, no murmur. Respiratory: Clear breath sounds are heard and upper lobes, slightly diminished breath sounds in lower lobes, no crackles, rhonchi or wheezes. Abdomen: Soft, bowel sounds positive, No tenderness on palpation. Ileostomy bag present Extremities: No clubbing. No edema, no tenderness. Central nervous system (ASSEMBLY LINE INSPECTOR): Awake, alert and fully oriented. No focal deficits Assessment: This is a 64 yo F with a hx of IBD (UC) s/p colectomy with ileostomy, DM2, obesity, BERNARD uses CPAP at home who presents to [facility] ER with a week long history of progressively worsening shortness of breath, dry cough, subjective chills and malaise, She denies chest pain, palpitations, bleeding, n/v/d. On arrival to the ED, hypoxic to 80s, required 6L NC to maintain at 88%. She was sinus tachyc ardic on EKG in 115-120 range.Patient will be admitted to main covid unit, for acute hypoxic respiratory failure secondary Covid-19 infection, requiring Vapotherm initially requiring the maximum 100% FiO2 and 40 L and now down to 50 % FiO2 on 12 L. She has been started on remdesivir 10 day course was finished on 08/20/20, Decadron and Lovenox 60 MG twice a day. Acute hypoxic respiratory failure 2/2 Covid 19: - Patient is still on Vapotherm, and 10 L and 50% FiO2 same as yesterday. We will try to titrate down as tolerated. - Day 13 of dexamethasone - Will continue Lovenox 40 MG twice a day. - Her white count is better today WBC 12.7 - Will get a repeat chest x-ray to see how her lungs are. Diabetes mellitus: - On sliding scale. - Consistent carb diet hypertension: -Continue Coreg IBD - Patient has stable Crohn's and currently has a permanent ileostomy. BERNARD: - On home CPAP DVT prophylaxis: - On Lovenox 40 MG twice a day. Disposition: Given the pace of improvement she might need couple more days in the hospital. She will need to be weaned down to nasal cannula over the weekend. And if patient is stable and able to tolerate 4 L or less of oxygen then she'll be a candidate for discharge. VS,Fishbone, I+O VS, Fishbone, I+O Laboratory Tests 08/26/20 05:51 Vital Signs Date Time Temp Pulse Resp B/P (MAP) Pulse Ox O2 Delivery O2 Flow Rate FiO2 08/26/20 08:34 80 131/84 08/26/20 08:30 10.0 50 08/26/20 08:07 98.4 17 91 HVNI-Vapotherm I&O- Last 24 Hours up to 6 AM 08/26/20 06:00 Intake Total 1860 ml Output Total 1375 ml Balance 485 ml GME ATTESTATION GME ATTESTATION My faculty preceptor for this patient encounter was physically present during the encounter and was fully available. All aspects of the patient interview, examination, medical decision making process, and medical care plan development were reviewed and approved by the faculty preceptor. The faculty preceptor is aware and concurs with the plan as stated in the body of this note and will attest to such by his/her cosignature. ATTENDING NOTE I, Spencer Gannon MD, have independently examined this patient and performed my own physical exam, as well as reviewed the documentation and edited where necessary. I have discussed in detail with the resident / student the findings and plan of treatment as documented by the resident / student and edited their note. I agree with their findings and treatment plan and have edited their documentation. Brook Cervantes MD Aug 26, 2020 11:37 SPENCER GANNON MD Aug 26, 2020 14:01
--- NOTE | 2020-08-26 13:10 | REP ---
INDICATION: Covid +. COMPARISON: Comparison chest x-ray August 22, 2020. TECHNIQUE: Portable upright AP chest radiograph. FINDINGS: Areas of pulmonary parenchymal opacification are again noted bilaterally in the lower lobes and in the left upper lobe. A small area of infiltrate is seen in the right upper lobe. Parenchymal disease is felt to be unchanged radiographically from the 22 August 2020 study. Heart is not felt to be enlarged. The aorta is tortuous. Oxygen delivery tubing is noted. Surgical clips are visible in the soft tissues adjacent to the trachea to the right of midline in the lower neck. There are clips in the left upper quadrant of the abdomen.. No pleural effusion is visible. IMPRESSION: Moderate bilateral infiltrates radiographically unchanged from 22 August 2020.. <Electronically signed by Mateusz Bush > 08/26/20 [id number]
[2020-08-26] MEDS: QUEtiapine FUMARATE 50MG TAB PO SCH (20:50)
[2020-08-27 04:00] VITALS: BP 139/79
[2020-08-27] MEDS: HumaLOG INSULIN (NovoLOG) PER UNIT SC SCH ×4 (07:30→21:12)
[2020-08-27 08:00] VITALS: BP 127/73
[2020-08-27] MEDS: ENOXAPARIN 40MG/0.4ML SYRINGE (J1650 PER 10MG) SC SCH ×2 (08:52→21:13)
[2020-08-27] MEDS: LEVEMIR (INSULIN DETEMIR) 1 UNITS/0.01ML SC SCH ×2 (08:52→21:12)
[2020-08-27] MEDS: PANTOPRAZOLE 40MG TAB (PROTONIX) PO SCH (08:53)
[2020-08-27] MEDS: DULoxetine 30 MG CAP (CYMBALTA) PO SCH (08:53)
[2020-08-27] MEDS: GABAPENTIN 300 MG CAP PO SCH ×2 (08:53→21:11)
[2020-08-27] MEDS: CARVedilol 3.125 MG TAB PO SCH ×2 (08:59→21:11)
--- NOTE | 2020-08-27 13:23 | IPNPDOC ---
Text Note Date of Service The patient was seen on 08/27/20. NOTE Subjective: Patient is then better today, she is on 6 L by nasal cannula Objective: GENERAL APPEARANCE: NAD HEENT: no scleral icterus, no JVD, EOMI CARDIOVASCULAR: S1S2 LUNGS: Diminished lung sounds bilaterally ABDOMEN: soft & not tender w palpitation MUSCULOSKELETAL: no cyanosis, no swelling INTEGUMENT: no generalized palor NEUROLOGICAL: cranial nerve function from 2-12 intact intact, follows commands, speech not dysarthric Assessment: This is a 64 yo F with a hx of IBD (UC) s/p colectomy with ileostomy, DM2, obesity, BERNARD uses CPAP at home who presents to [facility] ER with a week long history of progressively worsening shortness of breath, dry cough, subjective chills and malaise, She denies chest pain, palpitations, bleeding, n/v/d. On arrival to the ED, hypoxic to 80s, required 6L NC to maintain at 88%. She was sinus tachycardic on EKG in 115-120 range.Patient will be admitted to main covid unit, for acute hypoxic respiratory failure secondary Covid-19 infection, requiring Vapotherm initially requiring the maximum 100% FiO2 and 40 L and now down to 50 % FiO2 on 12 L. She has been started on remdesivir 10 day course was finished on 08/20/20, Decadron and Lovenox 60 MG twice a day. Acute hypoxic respiratory failure 2/2 Covid 19: Improved Continue steroids continue Lovenox 40 MG twice a day. Diabetes mellitus: Glucose level under control Continue insulin sliding scale Diabetes diet hypertension Continue home cardioprotective medications IBD Patient has stable Crohn's and currently has a permanent ileostomy. BERNARD: CPAP DVT prophylaxis: - On Lovenox 40 MG twice a day. VS,Fishbone, I+O VS, Fishbone, I+O Vital Signs Date Time Temp Pulse Resp B/P (MAP) Pulse Ox O2 Delivery O2 Flow Rate FiO2 08/27/20 08:59 97 127/73 08/27/20 08:00 8.0 50 08/27/20 08:00 18 92 HVNI-Vapotherm 08/27/20 04:00 98.7 I&O- Last 24 Hours up to 6 AM 08/27/20 06:00 Intake Total 1160 ml Output Total 1100 ml Balance 60 ml DROZHZHIN,JESENIA DO Aug 27, 2020 13:23
[2020-08-27 14:00] VITALS: BP 128/74; O2SAT 94
[2020-08-27 20:21] VITALS: BP 129/87
[2020-08-27 20:50] VITALS: BP 124/73
[2020-08-27] MEDS ORDERED: RAMELTEON 8 MG TAB (ROZEREM) PO SCH (21:00)
[2020-08-27] MEDS: QUEtiapine FUMARATE 50MG TAB PO SCH (21:11)
[2020-08-28 03:34] VITALS: BP 129/81
[2020-08-28 06:11] LABS: BASO # 0.1 10^3/uL (0.0-0.2); BASO % 0.4 % (0.0-1.0); EOS # 0.2 10^3/uL (0.0-0.5); EOS % 1.5 % (0.0-3.0); HEMATOCRIT 41.2 % (36.0-47.0); HEMOGLOBIN 13.7 g/dl (12.0-15.5); LYMPH # 2.8 10^3/uL (1.5-5.0); LYMPH % 24.1 % (24.0-44.0); MEAN CORPUSCULAR HEMOGLOBIN 29.5 pg (27.0-33.0); MEAN CORPUSCULAR HGB CONC 33.3 g/dl (32.0-36.5); MEAN CORPUSCULAR VOLUME 88.8 fl (80.0-96.0); MONO % 8.8 % (0.0-5.0); NEUTROPHILS # 7.3 10^3/uL (1.5-8.5); NEUTROPHILS % 63.8 % (36.0-66.0); PLATELET COUNT, AUTOMATED 241 10^3/uL (150-450); RED BLOOD COUNT 4.64 10^6/uL (4.00-5.40); WHITE BLOOD COUNT 11.4 10^3/uL (4.0-10.0)
[2020-08-28 06:38] LABS: ALBUMIN 2.5 GM/DL (3.2-5.2); ALT/SGPT 30 U/L (12-78); BILIRUBIN,TOTAL 0.7 MG/DL (0.2-1.0); BLOOD UREA NITROGEN 22 MG/DL (7-18); CALCIUM LEVEL 8.4 MG/DL (8.8-10.2); CARBON DIOXIDE LEVEL 30 MEQ/L (21-32); CHLORIDE LEVEL 104 MEQ/L (98-107); CREATININE FOR GFR 0.96 MG/DL (0.55-1.30); GLOMERULAR FILTRATION RATE > 60.0 (>45); GLUCOSE, FASTING 110 MG/DL (70-100); POTASSIUM SERUM 4.1 MEQ/L (3.5-5.1); SODIUM LEVEL 143 MEQ/L (136-145); TOTAL PROTEIN 5.8 GM/DL (6.4-8.2)
[2020-08-28 08:00] VITALS: BP 117/73
[2020-08-28] MEDS: HumaLOG INSULIN (NovoLOG) PER UNIT SC SCH ×2 (08:43→12:19)
[2020-08-28] MEDS: LEVEMIR (INSULIN DETEMIR) 1 UNITS/0.01ML SC SCH (08:43)
[2020-08-28] MEDS: PANTOPRAZOLE 40MG TAB (PROTONIX) PO SCH (08:44)
[2020-08-28] MEDS: GABAPENTIN 300 MG CAP PO SCH (08:44)
[2020-08-28] MEDS: DULoxetine 30 MG CAP (CYMBALTA) PO SCH (08:44)
[2020-08-28 08:45] VITALS: BP 117/73
[2020-08-28] MEDS: CARVedilol 3.125 MG TAB PO SCH (08:45)
[2020-08-28] MEDS: ENOXAPARIN 40MG/0.4ML SYRINGE (J1650 PER 10MG) SC SCH (08:46)
[2020-08-28] MEDS ORDERED: PRED10TA2 PO (10:53)
[2020-08-28] MEDS ORDERED: RAME8TAB2 PO (10:53)
--- NOTE | 2020-08-28 11:16 | DS.PDOC ---
Discharge Summary General Date of Admission Aug 10, 2020 at 20:08 Date of Discharge 08/28/2020 Discharge Summary PROCEDURES PERFORMED DURING STAY: [None]. ADMITTING DIAGNOSES / DISCHARGE DIAGNOSES: Acute hypoxic respiratory failure - likely 2/2 COVID19 pneumonia IDDM2 with Neuropathy HTN Ulcerative colitis BERNARD on CPAP Mood disorder / Insomnia GERD DVT prophylaxis COMPLICATIONS/CHIEF COMPLAINT: Shortness of breath HISTORY OF PRESENT ILLNESS: Patient is a 64-year-old female with a PMHx of Ulcerative colitis (s/p colectomy with ileostomy), DM2, BERNARD on CPAP, Obestiy, presented to the emerg ency room with progressive shortness of breath associated with a dry cough, subjective chills and malaise. Upon arrival to emergency room, patient was noted to be hypoxic requiring 6 L of nasal cannula oxygen. She was found to be positive for COVID19 on 08/10/2020 (date o arrival). Patient was admitted to the hospital service for further evaluation and treatment. Patient has completed a course of Remdesivir x 10 days (completed on 08/20/2020). Patient continues with dexamethasone and weight based prophylactic dosing of Lovenox. HOSPITAL COURSE: Acute hypoxic respiratory failure - likely 2/2 COVID19 pneumonia - Clinically has reported improvement of her breathing and symptoms - Patient is on 2 L of oxygen via nasal cannula; will discharge home with oxygen - Lungs appear clear on auscultation - c/w Dexamethasone; will provide Prednisone taper on discharge - s/p Remdesivir x 10 day course - Will perform home safety evaluation and if cleared will discharge home with outpatient follow-up with primary care provider within the next 7 days IDDM2 with Neuropathy - c/w ISS and Levemir - c/w Neuropathy HTN - BP well controlled - c/w Carvedilol Ulcerative colitis - s/p Ileostomy BERNARD on CPAP - Resume home CPAP use on discharge Mood disorder / Insomnia - c/w Quetiapine, Ramelteon, Duloxetine GERD - c/w Protonix DVT prophylaxis - c/w Lovenox 40 BID DISCHARGE MEDICATIONS: Please see below. ALLERGIES: Please see below. PHYSICAL EXAMINATION ON DISCHARGE: Vitals (See below) General: Lying in bed, no acute distress, comfortable, AAOx3 HEENT: NC, AT CVS: +S1S2 Lungs: Fair air entry b/l, -w/r/r Abdomen: Soft, ND, NT Extremities: No evidence of edema, - Calf tenderness LABORATORY DATA: Please see below. Imaging: CXR 08/10: Findings most suggestive of multifocal pneumonia and possible COVID-19 pulmonarydisease. CXR 08/26: Moderate bilateral infiltrates radiographically unchanged from 22 August 2020. ACTIVITY: [As tolerated]. DISCHARGE PLAN: Follow-up with primary care provider within the next 7 days Remain compliant with treatment plan and medications Return to the ER if you experience any problems DISPOSITION: Home DISCHARGE CONDITION: [Stable]. TIME SPENT ON DISCHARGE: 35 minutes. Vital Signs/I&Os Vital Signs Date Time Temp Pulse Resp B/P (MAP) Pulse Ox O2 Delivery O2 Flow Rate FiO2 08/28/20 08:45 88 117/73 08/28/20 03:34 97.3 18 94 Nasal Cannula 2.0 08/27/20 08:00 50 I&O- Last 24 Hours up to 6 AM 08/28/20 06:00 Intake Total 1080 ml Output Total 2200 ml Balance -1120 ml Laboratory Data Labs 24H Laboratory Tests 2 08/27/20 11:58: Bedside Glucose (Misc Panel) 175H 08/27/20 17:01: Bedside Glucose (Misc Panel) 409H 08/27/20 20:20: Bedside Glucose (Misc Panel) 352H 08/28/20 05:40: Immature Granulocyte % (Auto) 1.4, Neutrophils (%) (Auto) 63.8, Lymphocytes (%) (Auto) 24.1, Monocytes (%) (Auto) 8.8H, Eosinophils (%) (Auto) 1.5, Basophils (%) (Auto) 0.4, Neutrophils # (Auto) 7.3, Lymphocytes # (Auto) 2.8, Monocytes # (Auto) 1.0H, Eosinophils # (Auto) 0.2, Basophils # (Auto) 0.1, Nucleated Red Blood Cells % (auto) 0.0, Anion Gap 9, Glomerular Filtration Rate > 60.0, Calcium Level 8.4L, Magnesium Level 2.0, Total Bilirubin 0.7, Aspartate Amino Transf (AST/SGOT) 12, Alanine Aminotransferase (ALT/SGPT) 30, Alkaline Phosphatase 60, Total Protein 5.8L, Albumin 2.5L, Albumin/Globulin Ratio 0.8L CBC/BMP Laboratory Tests 08/28/20 05:40 FSBS Laboratory Tests Test 08/27/20 11:58 08/27/20 17:01 08/27/20 20:20 Range/Units Bedside Glucose (Misc Panel) 175 409 352 80-115 MG/DL Discharge Medications Scheduled Carvedilol (Carvedilol) 3.125 Mg Tablet, 3.125 MG PO BID, (Reported) Dulaglutide (Trulicity) 1.5 Mg/0.5 Ml Pen.injctr, 1.5 MG SQ QWEEK, (Reported) saturday Duloxetine Hcl (Duloxetine HCl) 60 Mg Capsule.dr, 60 MG PO DAILY, (Reported) Ergocalciferol (Vitamin D2) (Drisdol) 1,250 Mcg Capsule, 1,250 MCG PO QWEEK, (Reported) Gabapentin (Neurontin) 300 Mg Cap, 300 MG PO BID, (Reported) Losartan Potassium (Losartan Potassium) 25 Mg Tablet, 25 MG PO DAILY, (Reported) Metformin HCl (Metformin HCl) 1,000 Mg Tab, 1,000 MG PO BID, (Reported) Omeprazole (Omeprazole) 40 Mg Cap, 40 MG PO DAILY, (Reported) Quetiapine Fumarate (Quetiapine Fumarate) 50 Mg Tablet, 50 MG PO QHS, (Reported) Miscellaneous Medications [Pt Comment] , (Reported) PT STATES: HAVEN'T TAKEN MEDS IN A WEEK SINCE BECOMING SICK Allergies Coded Allergies: morphine (Verified Allergy, Unknown, SOB, 08/10/20) meperidine (Verified Adverse Reaction, Unknown, vomiting, 08/10/20) oxycodone (Verified Adverse Reaction, Unknown, itching, 08/10/20) TRU AVERY MD Aug 28, 2020 11:15
== END 2020-08-28 14:55 | disposition home or self-care (01) | DRG 177 ==
LOC: M ED 14:54 → M ED INP 20:08 → M 4MAIN 08-11 11:41
PROVIDERS: ADMIT Family Medicine; ATTEND Internal Medicine
PROC: XW033E5 Introduction of Remdesivir Anti-infective into Peripheral Vein, Percutaneous Approach, New Technology Group 5 (ICD-10-PCS; principal; 2020-08-10)
PROC: 3E0333Z Introduction of Anti-inflammatory into Peripheral Vein, Percutaneous Approach (ICD-10-PCS; 2020-08-10)
DX: U07.1 COVID-19 (principal); J96.01 Acute respiratory failure with hypoxia; J12.89 Other viral pneumonia; N17.9 Acute kidney failure, unspecified; K51.90 Ulcerative colitis, unspecified, without complications; E11.65 Type 2 diabetes mellitus with hyperglycemia; E66.9 Obesity, unspecified; I10 Essential (primary) hypertension; F39 Unspecified mood [affective] disorder; G47.33 Obstructive sleep apnea (adult) (pediatric); E11.40 Type 2 diabetes mellitus with diabetic neuropathy, unspecified; G47.00 Insomnia, unspecified; K21.9 Gastro-esophageal reflux disease without esophagitis; E86.0 Dehydration; Z79.84 Long term (current) use of oral hypoglycemic drugs; Z79.899 Other long term (current) drug therapy; Z88.5 Allergy status to narcotic agent; Z88.8 Allergy status to other drugs, medicaments and biological substances; Z96.641 Presence of right artificial hip joint; Z93.2 Ileostomy status; Z90.49 Acquired absence of other specified parts of digestive tract; Z68.33 Body mass index [BMI] 33.0-33.9, adult

== ENCOUNTER 2020-08-31 10:09 | Emergency (ER) | payer MEDICARE, BC ==
[~2020-08-31] VITALS: Ht 172.7 cm; Wt 99.8 kg
[~2020-08-31 10:09] MED LIST changes: +CARV3.12 PO; +DRIS50003 PO; +DULO1CAP6 PO; +LOSA25TA14 PO; +PRED10TA2 PO; +PT COMMENT; +QUET50TA3 PO; +RAME8TAB2 PO; +TRUL0.5I SQ
--- OUTSIDE RECORDS SUMMARY | 2020-08-31 10:18 | CCD ---
Author Author [facility] Organization [facility] Address Unknown Phone Unavailable Care Team Providers Care Vp Cardiovascular Name Role Phone Vero BARNETT DPM Unavailable Unavailable Vero BARNETT DPM Unavailable Unavailable Vero BARNETT DPM Unavailable Unavailable Vero BARNETT DPM Unavailable Unavailable Vero BARNETT DPM Unavailable Unavailable Vero BARNETT DPM Unavailable Unavailable Vero BARNETT DPM Unavailable Unavailable Vero BARNETT DPM Unavailable Unavailable Vero BARNETT DPM Unavailable Unavailable Vero BARNETT DPM Unavailable Unavailable Vero BARNETT DPM Unavailable Unavailable Vero BARNETT DPM Unavailable Unavailable Vero BARNETT DPM Unavailable Unavailable Vero BARNETT DPM Unavailable Unavailable Vero BARNETT DPM Unavailable Unavailable Vero BARNETT DPM Unavailable Unavailable Vero BARNETT DPM Unavailable Unavailable Vero BARNETT DPM Unavailable Unavailable Vero BARNETT DPM Unavailable Unavailable Vero BARNETT DPM Unavailable Unavailable Vero BARNETT DPM Unavailable Unavailable Vero BARNETT DPM Unavailable Unavailable Vero BARNETT DPM Unavailable Unavailable Vero BARNETT DPM Unavailable Unavailable Vero BARNETT DPM Unavailable Unavailable Vero BARNETT DPM Unavailable Unavailable Vero BARNETT DPM Unavailable Unavailable MAJAK, R AMADA DPM Unavailable Unavailable MAJAK, R AMADA DPM Unavailable Unavailable MAJAK, R AMADA DPM Unavailable Unavailable RING, K SANDI PA Unavailable Unavailable RING, K SANDI PA Unavailable Unavailable RING, K SANDI PA Unavailable Unavailable RING, K SANDI PA Unavailable Unavailable RING, K SANDI PA Unavailable Unavailable RING, K SANDI PA Unavailable Unavailable RING, K SANDI PA Unavailable Unavailable RING, K SANDI PA Unavailable Unavailable RING, K SANDI PA Unavailable Unavailable RING, K SANDI PA Unavailable Unavailable RING, K SANDI PA Unavailable Unavailable RING, K SANDI PA Unavailable Unavailable RING, K SANDI PA Unavailable Unavailable RING, K SANDI PA Unavailable Unavailable RING, K SANDI PA Unavailable Unavailable RING, K SANDI PA Unavailable Unavailable RING, K SANDI PA Unavailable Unavailable RING, K SANDI PA Unavailable Unavailable RING, K SANDI PA Unavailable Unavailable RING, K SANDI PA Unavailable Unavailable FADUMO, KIESHA PA Unavailable Unavailable FADUMO, KIESHA PA Unavailable Unavailable FADUMO, KIESHA PA Unavailable Unavailable FADUMO, KIESHA PA Unavailable Unavailable FADUMO, KIESHA PA Unavailable Unavailable FADUMO, KIESHA PA Unavailable Unavailable FADUMO, KIESHA PA Unavailable Unavailable FADUMO, KIESHA PA Unavailable Unavailable FADUMO, KIESHA PA Unavailable Unavailable FADUMO, KIESHA PA Unavailable Unavailable FADUMO, KIESHA PA Unavailable Unavailable FADUMO, KIESHA PA Unavailable Unavailable FADUMO, KIESHA PA Unavailable Unavailable FADUMO, KIESHA PA Unavailable Unavailable FADUMO, KIESHA PA Unavailable Unavailable FADUMO, KIESHA PA Unavailable Unavailable FADUMO, KIESHA PA Unavailable Unavailable FADUMO, KIESHA PA Unavailable Unavailable FADUMO, KIESHA PA Unavailable Unavailable FADUMO, KIESHA PA Unavailable Unavailable FADUMO, KIESHA PA Unavailable Unavailable FADUMO, KIESHA PA Unavailable Unavailable FADUMO, KIESHA PA Unavailable Unavailable FADUMO, KIESHA PA Unavailable Unavailable FADUMO, KIESHA PA Unavailable Unavailable FADUMO, KIESHA PA Unavailable Unavailable FADUMO, KIESHA PA Unavailable Unavailable FADUMO, KIESHA PA Unavailable Unavailable FADUMO, KIESHA PA Unavailable Unavailable FADUMO, KIESHA PA Unavailable Unavailable FADUMO, KIESHA PA Unavailable Unavailable FADUMO, KIESHA PA Unavailable Unavailable FADUMO, KIESHA PA Unavailable Unavailable FADUMOCLARENCEKIESHATONE ESPINO Unavailable Unavailable FADUMOKIESHA SRINIVAS Unavailable Unavailable FADUMO, KIESHA SRINIVAS Unavailable Unavailable FADUMO, KIESHA SRINIVAS Unavailable Unavailable FADUMOKIESHA SRINIVAS Unavailable Unavailable Re-disclosure Warning The records that you are about to access may contain information from federally-assisted alcohol or drug abuse programs. If such information is present, then the following federally mandated warning applies: This information has been disclosed to you from records protected by federal confidentiality rules (42 CFR part 2). The federal rules prohibit you from making any further disclosure of this information unless further disclosure is expressly permitted by the written consent of the person to whom it pertains or as otherwise permitted by 42 CFR part 2. A general authorization for the release of medical or other information is NOT sufficient for this purpose. The Federal rules restrict any use of the information to criminally investigate or prosecute any alcohol or drug abuse patient.The records that you are about to access may contain highly sensitive health information, the redisclosure of which is protected by Article 27-F of the [facility] Public Health law. If you continue you may have access to information: Regarding HIV / AIDS; Provided by facilities licensed or operated by the [facility] Office of Mental Health; or Provided by the [facility] Office for People With Developmental Disabilities. If such information is present, then the following [facility] mandated warning applies: This information has been disclosed to you from confidential records which are protected by state law. State law prohibits you from making any further disclosure of this information without the specific written consent of the person to whom it pertains, or as otherwise permitted by law. Any unauthorized further disclosure in violation of state law may result in a fine or penitentiary sentence or both. A general authorization for the release of medical or other information is NOT sufficient authorization for further disc losure. Allergies and Adverse Reactions Type Description Substance Reaction Status Data Source(s ) Drug allergy Demerol Meperidine vomiting/severe Active eCW1 ( [facility]) Drug allergy Amitriptyline HCl Amitriptyline Dyspnea Active eC W1 ([facility]) Drug allergy Morphine Sulfate Morphine vomiting/severe Active eCW1 ([facility]) Family History Family Member Name Family Member Gender Family Member Status Date o f Status Description Data Source(s) Unknown Unknown Problem [facility] Unknown Male Problem MEDENT ([facility] () Unknown Male Problem MEDENT ([facility]) at age 87 Unknown Male Problem MEDENT ([facility]) Unknown Male Problem MEDENT ([facility], ) Encounters Encounter Providers Location Date Indications Data Source(s ) [place] [address] [facility] [address] 08/29/2020 12:00:00 AM EST eCW1 ([facility]) Outpatient Attender: KIESHA cortez 08/10/2020 12:45:00 PM EST MEDENT ([facility] Unknown [address] [facility] [address] 08/10/2020 12:00:00 AM EST eCW1 ([facility]) Outpatient Attender: AMADA BARNETT [facility] 12/2019 09:30:00 AM EST MEDENT ([facility] [place] [address] [facility] [address] 05/17/2020 12:00:00 AM EDT eCW1 ([facility]) [place] [address] [facility] [address] 05/17/2020 12:00:00 AM EDT eCW1 ([facility]) Unknown [address] [facility] [address] 02/23/2020 12:00:00 AM EDT eCW1 ([facility]) Outpatient Attender: AMADA BARNETT [facility] 01/04 02:45:00 PM EDT MEDENT ([facility] Outpatient [address] [facility] [place] [address] 01/18/2020 12:00:00 AM EDT eCW1 ([facility]) Outpatient [address] [facility] [place] [address] 12/18/2019 12:00:00 AM EDT eCW1 ([facility]) Unknown [address] [facility] [phone] 11/30/2019 12:00:00 AM EDT eCW1 ([facility] [address] [place] [phone] 11/30/2019 12:00:00 AM EDT eCW1 ([facility]) [facility] [address] [place] [address] [place] [address] 11/25/2019 12:00:00 AM EDT eCW1 ([facility] G[facility] Resident [address] [place] [phone] 11/20/2019 12:00:00 AM EDT eCW1 ([facility] Resident [address] [place] [phone] 11/09/2019 12:00:00 AM EDT eCW1 ([facility]) [facility] [address] [place] [phone] 11/09/2019 12:00:00 AM EDT eCW1 ([facility] [address] [place] [phone] 11/09/2019 12:00:00 AM EDT eCW1 ([facility]) Outpatient Attender: SANDI Mahoney 10/18/2019 04:00:00 PM EDT MEDENT ([facility]) [facility] G[facility] Resident [address] [place] [phone] 09/29/2019 12:00:00 AM EST eCW1 ([facility] Resident [address] [place] [phone] 09/02/2019 12:00:00 AM EST eCW1 ([facility] [address] [place] [address] Y [address] 08/31/2019 12:00:00 AM EST eCW1 ([facility]) [address] [address] 08/28/2019 12:00:00 AM EST eCW1 ([facility]) [address] [address] 08/26/2019 12:00:00 AM EST eCW1 ([facility]) [facility] Resident [address] [place] [phone] 08/26/2019 12:00:00 AM EST eCW1 ([facility]) [address] [address] 08/21/2019 12:00:00 AM EST eCW1 ([facility]) [address] [address] 08/21/2019 12:00:00 AM EST eCW1 ([facility]) Outpatient Attender: AMADA BARNETT [facility] 08/05 12:45:00 PM EST MEDENT ([facility] Resident [address] [place] [phone] 07/31/2019 12:00:00 AM EST eCW1 ([facility]) [address] [address] 07/27/2019 12:00:00 AM EST eCW1 ([facility]) [facility] Resident [address] [place] [phone] 07/21/2019 12:00:00 AM EST eCW1 ([facility]) Medications Medication Brand Name Start Date Product Form Dose Route Admi nistrative Instructions Pharmacy Instructions Status Indications Reaction Description Data Source(s) 8 mg 08/28/2020 12:00:00 AM EST tablet 7 TAKE ONE TABLET BY MOUTH AT BEDTIME TAKE ONE TABLET BY MOUTH AT BEDTIME SOLD: 08/28/2020 [facility] 10 mg 08/28/2020 12:00:00 AM EST tablet 30 TAKE 4 TABLETS BY MOUTH DAILY FOR 3 DAYS THEN 3 TABLETS DAILY FOR 3 DAYS THEN 2 TABLETS BY MOUTH DAILY FOR 3 DAYS THEN 1 TABLET DAILY FOR 3 DAYS THEN STOP TAKE 4 TABLETS BY MOUTH DAILY FOR 3 DAYS THEN 3 TABLETS DAILY FOR 3 DAYS THEN 2 TABLETS BY MOUTH DAILY FOR 3 DAYS THEN 1 TABLET DAILY FOR 3 DAYS THEN STOP SOLD: 08/28/2020 [facility] 25 mg 06/09/2020 12:00:00 AM EST tablet 90 TAKE ONE TABLET BY MOUTH EVERY DAY TAKE ONE TABLET BY MOUTH EVERY DAY SOLD: 06/10/2020 [facility] 40 mg 06/09/2020 12:00:00 AM EST capsule,delayed release (DR/EC) 90 TAKE ONE CAPSULE BY MOUTH EVERY DAY TAKE ONE CAPSULE BY MOUTH EVERY DAY SOLD: 06/10/2020 [facility] quetiapine 50 MG Oral Tablet QUETIAPINE FUMARATE 06/09/2020 12:0 0:00 AM EST tablet 90 TAKE ONE TABLET BY MOUTH AT BEDT JEAN CARLOS TAKE ONE TABLET BY MOUTH AT BEDTIME SOLD: 06/10/2020 [facility] Metformin hydrochloride 1000 MG Oral Tablet 1,000 mg METFORM IN HCL 06/09/2020 12:00:00 AM EST tablet 180 TAKE ONE TABLET BY MOUTH TWICE A DAY WITH MEALS TAKE ONE TABLET BY MOUTH TWICE A DAY WITH MEALS SOLD: 06/10/2020 [facility] 1.5 mg/0.5 mL 05/10/2020 12:00:00 AM EDT pen injector 6 INJECT ONCE WEEKLY UNDER THE SKIN DIRECTED INJECT ONCE WEEKLY UNDER THE SKIN DIRECTED SOLD: 07/21/2020 [facility] 1.5 mg/0.5 mL 05/10/2020 12:00:00 AM EDT pen injector 6 INJECT ONCE WEEKLY UNDER THE SKIN DIRECTED INJECT ONCE WEEKLY UNDER THE SKIN DIRECTED SOLD: 05/11/2020 [facility] 1,250 mcg (50,000 unit) 03/11/2020 12:00:00 AM EDT capsule 12 TAKE 1 CAPSULES BY MOUTH EVERY WEEK TAKE 1 CAPSULES BY MOUTH EVERY WEEK SOLD: 06/10/2020 [facility] 1,250 mcg (50,000 unit) 03/11/2020 12:00:00 AM EDT capsule 12 TAKE 1 CAPSULES BY MOUTH EVERY WEEK TAKE 1 CAPSULES BY MOUTH EVERY WEEK SOLD: 03/12/2020 [facility] 60 mg 03/09/2020 12:00:00 AM EDT capsule,delayed release (DR/EC) 90 TAKE ONE CAPSULE BY MOUTH EVERY DAY TAKE ONE CAPSULE BY MOUTH EVERY DAY SOLD: 03/10/2020 [facility] 40 mg 03/09/2020 12:00:00 AM EDT capsule,delayed release (DR/EC) 90 TAKE ONE CAPSULE BY MOUTH EVERY DAY TAKE ONE CAPSULE BY MOUTH EVERY DAY SOLD: 03/10/2020 [facility] 300 mg 03/07/2020 12:00:00 AM EDT capsule 180 TAKE ONE CAPSULE BY MOUTH TWICE A DAY TAKE ONE CAPSULE BY MOUTH TWICE A DAY SOLD: 03/10/2020 [facility] 300 mg 03/07/2020 12:00:00 AM EDT capsule 180 TAKE ONE CAPSULE BY MOUTH TWICE A DAY TAKE ONE CAPSULE BY MOUTH TWICE A DAY SOLD: 06/10/2020 [facility] carvedilol 3.125 MG Oral Tablet CARVEDILOL 03/07/2020 12:00:00 AM EDT tablet 180 TAKE ONE TABLET BY MOUTH TWICE A DAY WIT H FOOD TAKE ONE TABLET BY MOUTH TWICE A DAY WITH FOOD SOLD: 06/10/2020 [facility]on[facility] rugamy carvedilol 3.125 MG Oral Tablet CARVEDILOL 03/07/2020 12:00:00 AM EDT tablet 180 TAKE ONE TABLET BY MOUTH TWICE A DAY WIT H FOOD TAKE ONE TABLET BY MOUTH TWICE A DAY WITH FOOD SOLD: 03/10/2020 [facility]on[facility] rugs 5 % 01/29/2020 12:00:00 AM EDT ointment 35 APPL Y TO FOOT AT NIGHT APPLY TO FOOT AT NIGHT SOLD: 01/31/2020 [facility] quetiapine 50 MG Oral Tablet QUETIAPINE FUMARATE 12/03/2019 12:0 0:00 AM EDT tablet 78 TAKE ONE TABLET BY MOUTH BEFORE BEDTIME TAKE ONE TABLET BY MOUTH BEFORE BEDTIME SOLD: 12/03/2019 [facility] quetiapine 50 MG Oral Tablet QUETIAPINE FUMARATE 12/03/2019 12:0 0:00 AM EDT tablet 19 TAKE ONE TABLET BY MOUTH BEFORE BEDTIME TAKE ONE TABLET BY MOUTH BEFORE BEDTIME SOLD: 02/20/2020 [facility] 25 mg 11/25/2019 12:00:00 AM EDT tablet 90 TAKE ONE TABLET BY MOUTH EVERY DAY TAKE ONE TABLET BY MOUTH EVERY DAY SOLD: 03/10/2020 [facility] 25 mg 11/25/2019 12:00:00 AM EDT tablet 90 TAKE ONE TABLET BY MOUTH EVERY DAY TAKE ONE TABLET BY MOUTH EVERY DAY SOLD: 11/25/2019 [facility] Metformin hydrochloride 1000 MG Oral Tablet 1,000 mg METFORM IN HCL 11/25/2019 12:00:00 AM EDT tablet 180 TAKE ONE TABLET BY MOUTH TWICE A DAY WITH MEALS TAKE ONE TABLET BY MOUTH TWICE A DAY WITH MEALS SOLD: 03/10/2020 [facility] 1,000 mg 11/25/2019 12:00:00 AM EDT tablet 180 TAKE ONE TABLET BY MOUTH TWICE A DAY WITH MEALS TAKE ONE TABLET BY MOUTH TWICE A DAY WITH MEALS SOLD: 11/25/2019 [facility] 40 mg 11/24/2019 12:00:00 AM EDT capsule,delayed release (DR/EC) 90 TAKE ONE CAPSULE BY MOUTH EVERY DAY TAKE ONE CAPSULE BY MOUTH EVERY DAY SOLD: 11/25/2019 [facility] quetiapine 50 MG Oral Tablet Quetiapine Fumarate 50 MG Quetiapine Fumarate 50 MG 11/09/2019 12:00:00 AM EDT active 1 tablet at bedtime eC ([facility]) quetiapine 50 MG Oral Tablet Quetiapine Fumarate 50 MG Quetiapine Fumarate 50 MG 11/09/2019 12:00:00 AM EDT active 1 tablet at bedtime eC ([facility]) quetiapine 50 MG Oral Tablet Quetiapine Fumarate 50 MG Quetiapine Fumarate 50 MG 11/09/2019 12:00:00 AM EDT active 1 tablet at bedtime eC ([facility]) quetiapine 50 MG Oral Tablet QUETIAPINE FUMARATE 11/09/2019 12:0 0:00 AM EDT tablet 30 TAKE ONE TABLET BY MOUTH BEFORE BEDTIME TAKE ONE TABLET BY MOUTH BEFORE BEDTIME SOLD: 11/09/2019 [facility]amy benzonatate 100 MG Oral Capsule BENZONATATE 11/09/2019 12:00:00 AM EDT capsule 15 TAKE ONE CAPSULE BY MOUTH THREE TIMES A DAY NEEDED TAKE ONE CAPSULE BY MOUTH THREE TIMES A DAY NEEDED SOLD: 11/09/2019 [facility] quetiapine 50 MG Oral Tablet QUETIAPINE FUMARATE 11/09/2019 12:0 0:00 AM EDT tablet 90 TAKE ONE TABLET BY MOUTH BEFORE BEDTIME TAKE ONE TABLET BY MOUTH BEFORE BEDTIME SOLD: 03/10/2020 [facility] RIDER-Guaifenesin ER 30-600 MG UNK 11/09/2019 12:00:00 AM EDT active 1 tablet as needed eC1 ([facility]) benzonatate 100 MG Oral Capsule Benzonatate 100 MG Benzonata te 100 MG 11/09/2019 12:00:00 AM EDT active 1 capsul e as needed eC ([facility]) Sulfamethoxazole 800 MG / Trimethoprim 160 MG Oral Tablet [B actrim] Bactrim DS 10/18/2019 12:00:00 AM EDT ORAL active MEDENT ([facility]) 800-160 mg 10/18/2019 12:00:00 AM EDT tablet 10 TAKE ONE TABLET BY MOUTH EVERY 12 HOURS FOR 5 DAYS TAKE ONE TABLET BY MOUTH EVERY 12 HOURS FOR 5 DAYS SOLD: 10/18/2019 [facility] 5 mg 09/29/2019 12:00:00 AM EST tablet 30 TAKE ONE TABLET BY MOUTH AT BEDTIME NEEDED TAKE ONE TABLET BY MOUTH AT BEDTIME NEEDED SOLD: [facility] 10 mg 09/02/2019 12:00:00 AM EST tablet 30 TAKE ONE TABLET BY MOUTH AT BEDTIME NEEDED MAXIMUM DAILY DOSE = 1 TAKE ONE TABLET BY MOUTH AT BEDTIME NEEDED MAXIMUM DAILY DOSE = 1 SOLD: 09/03/2019 [facility] Zolpidem tartrate 10 MG Oral Tablet [Ambien] Ambien 10 MG Am deon 10 MG 09/02/2019 12:00:00 AM EST active 1 tablet at bedtime as needed eC ([facility]) 300 mg 08/31/2019 12:00:00 AM EST capsule 180 TAKE ONE CAPSULE BY MOUTH TWICE A DAY TAKE ONE CAPSULE BY MOUTH TWICE A DAY SOLD: 09/01/2019 [facility] 5 mg 08/31/2019 12:00:00 AM EST tablet 90 TAKE ONE TABLET BY MOUTH EVERY DAY TAKE ONE TABLET BY MOUTH EVERY DAY SOLD: 09/01/2019 [facility] 300 mg 08/31/2019 12:00:00 AM EST capsule 180 TAKE ONE CAPSULE BY MOUTH TWICE A DAY TAKE ONE CAPSULE BY MOUTH TWICE A DAY SOLD: 11/25/2019 [facility] 1,000 mg 08/28/2019 12:00:00 AM EST tablet 60 TAKE ONE TABLET BY MOUTH TWICE A DAY WITH MEALS TAKE ONE TABLET BY MOUTH TWICE A DAY WITH MEALS SOLD: 08/29/2019 [facility] 1,250 mcg (50,000 unit) 08/26/2019 12:00:00 AM EST capsule 4 TAKE 1 CAPSULE BY MOUTH ONCE A WEEK TAKE 1 CAPSULE BY MOUTH ONCE A WEEK SOLD: 08/29/2019 [facility] 1.5 mg/0.5 mL 08/24/2019 12:00:00 AM EST pen injector 6 1 INJECTION WEEKLY SUBCUTANEOUS 1 INJECTION WEEKLY SUBCUTANEOUS SOLD: 11/18/2019 [facility] 1.5 mg/0.5 mL 08/24/2019 12:00:00 AM EST pen injector 6 1 INJECTION WEEKLY SUBCUTANEOUS 1 INJECTION WEEKLY SUBCUTANEOUS SOLD: 02/10/2020 [facility] 1.5 mg/0.5 mL 08/24/2019 12:00:00 AM EST pen injector 6 1 INJECTION WEEKLY SUBCUTANEOUS 1 INJECTION WEEKLY SUBCUTANEOUS SOLD: 08/25/2019 [facility] 5 % 08/18/2019 12:00:00 AM EST ointment 35 APPL Y TOPICALLY TO FOOT AT NIGHT APPLY TOPICALLY TO FOOT AT NIGHT SOLD: 09/25/2019 [facility] Lidocaine 0.05 MG/MG Topical Ointment Lidocaine 08/18/2019 12:00:00 AM EST active MEDENT ([facility] 5 % 08/18/2019 12:00:00 AM EST ointment 35 APPL Y TOPICALLY TO FOOT AT NIGHT APPLY TOPICALLY TO FOOT AT NIGHT SOLD: 12/07/2019 [facility] 5 % 08/18/2019 12:00:00 AM EST ointment 35 APPL Y TOPICALLY TO FOOT AT NIGHT APPLY TOPICALLY TO FOOT AT NIGHT SOLD: 08/19/2019 [facility] 12.5 mg 08/01/2019 12:00:00 AM EST tablet,ext release mult iphase 30 TAKE ONE TABLET BY MOUTH AT BEDTIME NEEDED * MAXIMUM DAILY DOSE = 1 TAKE ONE TABLET BY MOUTH AT BEDTIME NEEDED * MAXIMUM DAILY DOSE = 1 SOLD: 08/03/2019 [facility] 10 mg 07/01/2019 12:00:00 AM EST tablet 30 TAKE ONE TABLET BY MOUTH AT BEDTIME * MAXIMUM DAILY DOSE = 1 TAKE ONE TABLET BY MOUTH AT BEDTIME * YUSEF WOODS DAILY DOSE = 1 SOLD: 07/03/[address] [facility]s 60 mg 06/16/2019 12:00:00 AM EST capsule,delayed release (DR/EC) 60 TAKE ONE CAPSULE BY MOUTH EVERY DAY TAKE ONE CAPSULE BY MOUTH EVERY DAY SOLD: 10/10/2019 [facility] 60 mg 06/16/2019 12:00:00 AM EST capsule,delayed release (DR/EC) 90 TAKE ONE CAPSULE BY MOUTH EVERY DAY TAKE ONE CAPSULE BY MOUTH EVERY DAY SOLD: 06/10/2020 [facility] 60 mg 06/16/2019 12:00:00 AM EST capsule,delayed release (DR/EC) 60 TAKE ONE CAPSULE BY MOUTH EVERY DAY TAKE ONE CAPSULE BY MOUTH EVERY DAY SOLD: 08/15/2019 [facility] 60 mg 06/16/2019 12:00:00 AM EST capsule,delayed release (DR/EC) 17 TAKE ONE CAPSULE BY MOUTH EVERY DAY TAKE ONE CAPSULE BY MOUTH EVERY DAY SOLD: 02/23/2020 [facility] 60 mg 06/16/2019 12:00:00 AM EST capsule,delayed release (DR/EC) 60 TAKE ONE CAPSULE BY MOUTH EVERY DAY TAKE ONE CAPSULE BY MOUTH EVERY DAY SOLD: 12/17/2019 [facility] Losartan Potassium 25 MG Oral Tablet LOSARTAN POTASSIUM 12:00:00 AM EDT tablet 30 TAKE ONE TABLET BY MOUTH NEFTALI RY DAY TAKE ONE TABLET BY MOUTH EVERY DAY SOLD: 08/29/2019 [facility] Losartan Potassium 25 MG Oral Tablet LOSARTAN POTASSIUM 12:00:00 AM EDT tablet 30 TAKE ONE TABLET BY MOUTH NEFTALI RY DAY TAKE ONE TABLET BY MOUTH EVERY DAY SOLD: 09/25/2019 [facility] Losartan Potassium 25 MG Oral Tablet LOSARTAN POTASSIUM 12:00:00 AM EDT tablet 30 TAKE ONE TABLET BY MOUTH NEFTALI RY DAY TAKE ONE TABLET BY MOUTH EVERY DAY SOLD: 10/26/2019 [facility] carvedilol 3.125 MG Oral Tablet CARVEDILOL 05/25/2019 12:00:00 AM EDT tablet 60 TAKE ONE TABLET BY MOUTH TWICE A DAY TAKE ONE TABLET BY MOUT H TWICE A DAY SOLD: 07/30/2019 [facility] carvedilol 3.125 MG Oral Tablet CARVEDILOL 05/25/2019 12:00:00 AM EDT tablet 60 TAKE ONE TABLET BY MOUTH TWICE A DAY TAKE ONE TABLET BY MOUT H TWICE A DAY SOLD: 08/29/2019 [facility] carvedilol 3.125 MG Oral Tablet CARVEDILOL 05/25/2019 12:00:00 AM EDT tablet 60 TAKE ONE TABLET BY MOUTH TWICE A DAY TAKE ONE TABLET BY MOUT H TWICE A DAY SOLD: 10/26/2019 [facility] carvedilol 3.125 MG Oral Tablet CARVEDILOL 05/25/2019 12:00:00 AM EDT tablet 60 TAKE ONE TABLET BY MOUTH TWICE A DAY TAKE ONE TABLET BY MOUT H TWICE A DAY SOLD: 09/25/2019 [facility] Losartan Potassium 25 MG Oral Tablet LOSARTAN POTASSIUM 12:00:00 AM EDT tablet 30 TAKE ONE TABLET BY MOUTH NEFTALI RY DAY TAKE ONE TABLET BY MOUTH EVERY DAY SOLD: 07/30/2019 [facility] 40 mg 02/27/2019 12:00:00 AM EDT capsule,delayed release (DR/EC) 30 TAKE ONE CAPSULE BY MOUTH EVERY DAY TAKE ONE CAPSULE BY MOUTH EVERY DAY SOLD: 07/30/2019 [facility] 5 mg 02/27/2019 12:00:00 AM EDT tablet 30 TAKE ONE TABLET BY MOUTH EVERY DAY TAKE ONE TABLET BY MOUTH EVERY DAY SOLD: 07/30/2019 [facility] 300 mg 02/27/2019 12:00:00 AM EDT capsule 60 TAKE ONE CAPSULE BY MOUTH TWICE A DAY TAKE ONE CAPSULE BY MOUTH TWICE A DAY SOLD: 08/05/2019 [facility] 1,250 mcg (50,000 unit) 02/27/2019 12:00:00 AM EDT capsule 4 TAKE ONE CAPSULE BY MOUTH EVERY WEEK TAKE ONE CAPSULE BY MOUTH EVERY WEEK SOLD: 07/30/2019 [facility] 40 mg 12/01/2018 12:00:00 AM EDT capsule,delayed release (DR/EC) 30 TAKE ONE CAPSULE BY MOUTH EVERY DAY TAKE ONE CAPSULE BY MOUTH EVERY DAY SOLD: 10/26/2019 [facility] 40 mg 12/01/2018 12:00:00 AM EDT capsule,delayed release (DR/EC) 30 TAKE ONE CAPSULE BY MOUTH EVERY DAY TAKE ONE CAPSULE BY MOUTH EVERY DAY SOLD: 08/29/2019 [facility] 40 mg 12/01/2018 12:00:00 AM EDT capsule,delayed release (DR/EC) 30 TAKE ONE CAPSULE BY MOUTH EVERY DAY TAKE ONE CAPSULE BY MOUTH EVERY DAY SOLD: 09/25/2019 [facility] Insurance Providers Payer name Policy type / Coverage type Policy ID Covered constitution party ID Covered constitution party's relationship to mckeon Policy [place] Plan Information MEDICARE [id number] SP [id number] [place] PPO [phone] [id number] HU2 [id number] [place] 302/307 [id number] HU2 [id number] MEDICARE [id number] SP [id number] MEDICARE C [id number] S [id number] X52 EXCELLUS BCBS B [id number] S [id number] MEDICARE [id number] SP [id number] X52 [place] 302/307 [id number] HU2 [id number] ANSI-Commercial [id number] ANSI-Medicare Part B [id number] ANSI-Commercial [id number] ANSI-Medicare Part B [id number] ANSI-Medicare Part B [id number] ANSI-Commercial [id number] BCBS/Excellus Medigap Part B [id number] Family Dependent [id number] Medicare Natl Gov't Servi Medicare Primary [id number] Self [id number] Medicare Medigap Part B [id number] Self [id number] BS Blanco/Enders Medigap Part B [id number] Family Depend ent [id number] Medicare Dme Medicare Primary [id number] Self [id number] BCBS Excellus U/W Medigap Part B [id number] Family Depende nt [id number] Medicare (Part B) Medicare Primary [id number] Self [id number] BCBS/Excellus Medigap Part B [id number] Family Dependent [id number] Medicare Natl Gov't Servi Medicare Primary [id number] Self [id number] Medicare Dme Medigap Part B [id number] Self [id number] BS Blanco/Enders Medigap Part B [id number] Family Depend ent [id number] Medicare Medicare Primary [id number] Self [id number] Medicare Dme Medigap Part B [id number] Self [id number] BS [place]/Enders Medigap Part B [id number] Family Depend ent [id number] Medicare Medicare Primary [id number] Self [id number] Medicare Dme Medigap Part B [id number] Self [id number] BS Blanco/Enders Medigap Part B [id number] Family Depend ent [id number] Medicare Medicare Primary [id number] Self [id number] BCBS Excellus U/W Medigap Part B [id number] Family Depende nt [id number] Medicare (Part B) Medicare Primary [id number] Self [id number] Medicare Medigap Part B [id number] Self [id number] BS [place]/Enders Medigap Part B [id number] Family Depend ent [id number] Medicare Dme Medicare Primary [id number] Self [id number] BCBS Excellus U/W Medigap Part B [id number] Family Depende nt [id number] Medicare (Part B) Medicare Primary [id number] Self [id number] Medicare Dme Medigap Part B [id number] Self [id number] BS Blanco/Enders Medigap Part B [id number] Family Depend ent [id number] Medicare Medicare Primary [id number] Self [id number] MEDICARE [id number] SP [id number] A BCBS Excellus U/W Medigap Part B [id number] Family Depende nt [id number] Medicare (Part B) Medicare Primary [id number] Self [id number] BS [place]/Enders Medigap Part B [id number] Family Depend ent [id number] Medicare Medicare Primary [id number] Self [id number] Blue Cross Blue Shield P [id number] SPOUSE [id number] Medicare C [id number] SELF [id number] A [place] 302/307 [id number] HU2 [id number] Excellus BCBS Medigap Part B [id number] Family Dependent [id number] [place] Medicare Primary [id number] Self [id number] MEDICARE C [id number] S [id number] A BCBS Excellus Ppo U/W Medigap Part B [id number] Family Dep endent [id number] Medicare (Part B) Medicare Primary [id number] Self [id number] Excellus BCBS Medigap Part B [id number] Family Dependent [id number] [place] Medicare Primary [id number] Self [id number] BCBS/Excellus Medigap Part B [id number] Family Dependent [id number] Medicare Natl Gov't Servi Medicare Primary [id number] Self [id number] BS Blanco-Enders Medigap Part B [id number] Family Depend ent [id number] [place] Primary [id number] Self [id number] BCBS/Excellus Medigap Part B [id number] Family Dependent [id number] Medicare Natl Gov't Servi Medicare Primary [id number] Self [id number] MEDICARE [id number] SP [id number] A Blue Cross Blue Shield P [id number] SPOUSE [id number] Medicare C [id number] SELF [id number] A BCBS/Excellus Medigap Part B [id number] Family Dependent [id number] Medicare Natl Gov't Servi Medicare Primary [id number] Self [id number] BCBS/Excellus Medigap Part B [id number] Family Dependent [id number] Medicare Natl Gov't Servi Medicare Primary [id number] Self [id number] Excellus BCBS Medigap Part B [id number] Family Dependent [id number] [place] Medicare Primary [id number] Self [id number] Excellus BCBS Medigap Part B [id number] Family Dependent [id number] [place] Medicare Primary [id number] Self [id number] [place] 302/307 [id number] HU2 [id number] Excellus BCBS Medigap Part B [id number] Family Dependent [id number] [place] Medicare Primary [id number] Self [id number] Excellus BCBS Medigap Part B [id number] Family Dependent [id number] [place] Medicare Primary [id number] Self [id number] MEDICARE [id number] SP [id number] A Excellus BCBS Medigap Part B [id number] Family Dependent [id number] [place] Medicare Primary [id number] Self [id number] Excellus BCBS Medigap Part B [id number] Family Dependent [id number] [place] Medicare Primary [id number] Self [id number] Excellus BCBS Health Maintenance Organization (HMO) Family Dependent BCBS [place] 302/307 [id number] HU2 [id number] [place]BS [place] 302/307 [id number] HU2 [id number] BCBS/Excellus Commercial Family Dependent EXCELLUS BCBS [id number] Spo YND [id number] MEDICARE [id number] Tere [id number] A BS Blanco-Enders Commercial Family Dependent Blue Cross Blue Shield P [id number] SPOUSE [id number] BCBS [place] 304/804 [id number] HU2 [id number] BC[place] 302/307 [id number] HU2 [id number] EXCELLUS BCBS P [id number] P VYS BCBS [place] 302/307 [id number] HU2 [id number] Surgeries/Procedures Procedure Description Date Indications Data Source(s) ECG ROUTINE ECG W/LEAST 12 LDS W/I&R 08/10/2020 12:00: 00 AM EST MARLENE ([facility], [facility]) PHYSICIAN TELEPHONE EVALUATION 11-20 MIN 11/20/2019 12 :00:00 AM EDT eCW1 ([facility]) Office Visit, Est Pt., Level 4 PC 11/09/2019 12:00:00 AM EDT eCW1 ([facility]) Office Visit, Est Pt., Level 2 FC 11/09/2019 12:00:00 AM EDT eCW1 ([facility]) Office Visit, Est Pt., Level 3 PC 09/29/2019 12:00:00 AM EST eCW1 ([facility]) Results ID Date Data Source [id number] 08/10/2020 05:08:00 PM EST [facility] Name Value Range Interpretation Code Description Data Marquita rce(s) Supporting Document(s) Respiratory pathogens identified [Type] in Nasopharynx by Probe and target amplification method SARS-CoV-2 (COVID 19) [facility] This lab was ordered by [facility] a nd reported by [facility]. ID Date Data Source [id number] 08/10/2020 12:00:00 AM EST [facility] Name Value Range Interpretation Code Description Data Marquita rce(s) Supporting Document(s) SARS coronavirus 2 Ag Negative [facility] This lab was ordered by [facility] and reported by [facility]. ID Date Data Source [id number] 10/18/2019 04:44:00 PM EDT MEDENT ([facility]) Name Value Range Interpretation Code Description Data Marquita rce(s) Supporting Document(s) Bacteria identified in Urine by Culture <pending> MEDENT ([facility]) Procedure Social History Code Duration Value Status Description Data Source(s ) Smoking 08/10/2020 12:00:00 AM EST Patient has never smoked co mpleted Patient has never smoked MEDENT ([facility]) Smoking 07/20/2020 12:00:00 AM EST Never Smoker completed Never S moker eCW1 ([facility]) Smoking 07/20/2020 12:00:00 AM EST Never Smoker completed Never S moker eCW1 ([facility]) Smoking 07/20/2020 12:00:00 AM EST Never Smoker completed Never S moker eCW1 ([facility]) Smoking 01/18/2020 12:00:00 AM EDT Never Smoker completed Never S moker eCW1 ([facility]) Smoking 01/18/2020 12:00:00 AM EDT Never Smoker completed Never S moker eCW1 ([facility]) Smoking 01/18/2020 12:00:00 AM EDT Never Smoker completed Never S moker eCW1 ([facility]) Smoking 01/12/2020 12:00:00 AM EDT Never Smoker completed Never S moker eCW1 ([facility]) Vital Signs ID Date Data Source UNK Name Value Range Interpretation Code Description Data Source(s) Body mass index (BMI) [Ratio] 35.3 kg/m2 35.3 k g/m2 MEDENT ([facility]) Body height 68 [in_i] 68 [in_i] MEDENT ([facility]) 5'8" Body weight 232.00 [lb_av] 232.00 [lb_av] MEDEN T ([facility]) Body temperature 97.3 [degF] 97.3 [degF] MEDENT ([facility]) Oxygen saturation in Arterial blood by Pulse oximetry 87 % 87 % MEDENT ([facility]) Respiratory rate 24 /min 24 /min MEDENT ( [facility]) Heart rate 112 /min 112 /min MEDENT ([facility]) Diastolic blood pressure 99 mm[Hg] 99 mm[Hg] MEDENT ([facility]) Systolic blood pressure 138 mm[Hg] 138 mm[Hg] M EDENT ([facility]) Diastolic blood pressure 80 mm[Hg] 80 mm[Hg] eCW1 ([facility]) Systolic blood pressure 122 mm[Hg] 122 mm[Hg] e CW1 ([facility]) Body temperature 97.1 [degF] 97.1 [degF] eCW1 ( [facility]) Respiratory rate 18 /min 18 /min eCW1 ([facility]) Heart rate 120 /min 120 /min eCW1 ([facility]) Body mass index (BMI) [Ratio] 37.80 kg/m2 37.80 kg/m2 W1 ([facility]) Body height 66 [in_i] 66 [in_i] eCW1 ([facility]) Body weight 234.2 [lb_av] 234.2 [lb_av] eCW1 ([facility]) Diastolic blood pressure 78 mm[Hg] 78 mm[Hg] eCW1 ([facility]) Systolic blood pressure 116 mm[Hg] 116 mm[Hg] e CW1 ([facility]) Body temperature 98.9 [degF] 98.9 [degF] eCW1 ( [facility]) Respiratory rate 20 /min 20 /min eCW1 ([facility]) Heart rate 89 /min 89 /min eCW1 ([facility]) Body mass index (BMI) [Ratio] 37.76 kg/m2 37.76 kg/m2 eCW1 ([facility]) Body height 66 [in_i] 66 [in_i] eCW1 ([facility]) Body weight 234.0 [lb_av] 234.0 [lb_av] eCW1 ([facility]) Diastolic blood pressure 80 mm[Hg] 80 mm[Hg] eCW1 ([facility]) Systolic blood pressure 112 mm[Hg] 112 mm[Hg] e CW1 ([facility]) Body temperature 97.6 [degF] 97.6 [degF] eCW1 ( [facility]) Respiratory rate 20 /min 20 /min eCW1 ([facility]) Heart rate 122 /min 122 /min eCW1 ([facility]) Body mass index (BMI) [Ratio] 36.93 kg/m2 36.93 kg/m2 eCW1 ([facility]) Body height 66 [in_us] 66 [in_us] eCW1 ([facility]) Body weight Measured 228.8 [lb_av] 228.8 [lb_av ] eCW1 ([facility]) Body mass index (BMI) [Ratio] 35.6 kg/m2 35.6 k g/m2 MEDENT ([facility]) Body height 68 [in_i] 68 [in_i] MEDENT ([facility]) 5'8" Body weight 234.00 [lb_av] 234.00 [lb_av] MEDEN T ([facility]) Body temperature 98.0 [degF] 98.0 [degF] MEDENT ([facility]) Oxygen saturation in Arterial blood by Pulse oximetry 95 % 95 % MEDENT ([facility]) Respiratory rate 20 /min 20 /min MEDENT ( [facility], [facility]) Heart rate 110 /min 110 /min MEDENT ([facility], [facility]) Diastolic blood pressure 94 mm[Hg] 94 mm[Hg] MEDENT ([facility], [facility]) Systolic blood pressure 132 mm[Hg] 132 mm[Hg] M EDENT ([facility], [facility]) Diastolic blood pressure 80 mm[Hg] 80 mm[Hg] eCW1 ([facility]) Systolic blood pressure 130 mm[Hg] 130 mm[Hg] e CW1 ([facility]) Body temperature 97.1 [degF] 97.1 [degF] eCW1 ( [facility]) Respiratory rate 20 /min 20 /min eCW1 ([facility]) Heart rate 74 /min 74 /min eCW1 ([facility]) Body mass index (BMI) [Ratio] 35.99 kg/m2 35.99 kg/m2 eCW1 ([facility]) Body height 66 [in_us] 66 [in_us] eCW1 ([facility]) Body weight Measured 223 [lb_av] 223 [lb_av] eC W1 ([facility]) Diastolic blood pressure 70 mm[Hg] 70 mm[Hg] eCW1 ([facility]) Systolic blood pressure 130 mm[Hg] 130 mm[Hg] e CW1 ([facility]) Body temperature 97 [degF] 97 [degF] eCW1 ([facility]) Respiratory rate 20 /min 20 /min eCW1 ([facility]) Heart rate 88 /min 88 /min eCW1 ([facility]) Body mass index (BMI) [Ratio] 35.18 kg/m2 35.18 kg/m2 eCW1 ([facility]) Body height 66 [in_us] 66 [in_us] eCW1 ([facility]) Body weight Measured 218 [lb_av] 218 [lb_av] eC W1 ([facility]) Body mass index (BMI) [Ratio] 35.4 kg/m2 35.4 k g/m2 MEDENT ([facility] Heart rate 112 /min 112 /min MEDENT ([facility] Diastolic blood pressure 76 mm[Hg] 76 mm[Hg] MEDENT ([facility] Systolic blood pressure 110 mm[Hg] 110 mm[Hg] M EDENT ([facility] Body weight 233.00 [lb_av] 233.00 [lb_av] MEDEN T ([facility] Body height 68 [in_i] 68 [in_i] [facility] 5'8" Diastolic blood pressure 90 mm[Hg] 90 mm[Hg] eCW1 ([facility]) Systolic blood pressure 110 mm[Hg] 110 mm[Hg] e CW1 ([facility]) Body temperature 97.2 [degF] 97.2 [degF] eCW1 ( [facility]) Respiratory rate 20 /min 20 /min eCW1 ([facility]) Heart rate 84 /min 84 /min eCW1 ([facility]) Body mass index (BMI) [Ratio] 36.31 kg/m2 36.31 kg/m2 eCW1 ([facility]) Body height 66 [in_us] 66 [in_us] eCW1 ([facility]) Body weight Measured 225 [lb_av] 225 [lb_av] eC W1 ([facility]) Patient Treatment Plan of Care Planned Activity Planned Date Details Description Data Source (s) quetiapine 50 MG Oral Tablet 11/09/2019 12:00:00 AM EDT eCW1 ([facility]) DM-Guaifenesin ER 30-600 MG 11/09/2019 12:00:00 AM EDT eCW1 ([facility]) quetiapine 50 MG Oral Tablet 11/09/2019 12:00:00 AM EDT eCW1 ([facility]) benzonatate 100 MG Oral Capsule 11/09/2019 12:00:00 AM EDT eCW1 ([facility]) quetiapine 50 MG Oral Tablet 11/09/2019 12:00:00 AM EDT eCW1 ([facility]) Zolpidem tartrate 10 MG Oral Tablet [Ambien] 09/02/2019 12:00:00 AM EST eCW1 ([facility])
--- OUTSIDE RECORDS SUMMARY | 2020-08-31 10:18 | CCD | Continuity of Care Document ---
Author Author Iwona THORNE Organization Unknown Address [address] [place] [address] [place] [address] Phone [phone] Care Team Providers Care Sheet Metal Supervisor Name Role Phone [facility] AUTM [phone] [place] [employer] [phone] Problems Description No Information Available Social History Type Date Description Comments Sex Unknown Tobacco Use Start: Unknown Never Smoked Cigarettes ETOH Use Denies alcohol use Tobacco Use Start: Unknown Patient has never smoked Smoking Status Reviewed: 08/10/20 Patient has never smoked Allergies, Adverse Reactions, Alerts Active Allergies Reaction Severity Comments Date Morphine Sulfate 02/11/2019 Inactive Allergies NKDA 10/05/2015 NKDA 02/11/2019 Medications Active Medications SIG Qnty Indications Ordering Provide r Date Citalopram Hydrobromide 40mg Table ts tke one tab daily Unknown Omeprazole 20mg Capsules DR take one tab in the morning for next month Unknown Vitamin D3 Maximum Strength 5000Unit Capsules once weekly Unknown Duloxetine HCL 60mg Caps [place]ie Estrada DPVenus Gabapentin 300mg Capsules Take One Capsule By Mouth Three Times A Day Unknown Losartan Potassium 25mg Tablets Take One Tablet By Mouth Every Day Unknown Metformin HCL 500mg Tablets 1 by mouth twice a day Unknown Magnesium 400mg Tablets take one tab per day Unknown Immunizations Description No Information Available Vital Signs Date Vital Result Comment 08/10/2020 1:52pm BP Systolic 138 mmHg BP Diastolic 99 mmHg Heart Rate 112 /min Respiratory Rate 24 /min O2 % BldC Oximetry 87 % Body Temperature 97.3 F Weight 232.00 lb Height 68 inches 5'8" BMI (Body Mass Index) 35.3 kg/m2 Pain Level 0 10/18/2019 4:21pm BP Systolic 132 mmHg BP Diastolic 94 mmHg Heart Rate 110 /min Respiratory Rate 20 /min O2 % BldC Oximetry 95 % Body Temperature 98.0 F Weight 234.00 lb Height 68 inches 5'8" BMI (Body Mass Index) 35.6 kg/m2 Pain Level 0 Results Description No Information Available Procedures Date Code Description Status 08/10/2020 20114 Electrocardiogram Complete Compl eted Medical Devices Description No Information Available Encounters Type Date Location Provider Dx Diagnosis Office Visit 08/10/2020 1:45p [facility] Drew Thorne, P MichaelAMichael R06.02 Shortness of breath Assessments Date Code Description Provider 08/10/2020 R06.02 Shortness of breath Keke Welsh Plan of Treatment No Information Available Functional Status Description No Information Available Mental Status Description No Information Available Referrals Description No Information Available
--- OUTSIDE RECORDS SUMMARY | 2020-08-31 10:18 | CCD ---
Author Author [facility] Organization [facility] Address Unknown Phone Unavailable Care Team Providers Care Alligator Hunter Name Role Phone Karthik Garnett Unavailable PROBLEMS Type Condition ICD9-CM Code [id number] Code Onset Dates Condition S tatus SNOMED Code Notes Problem Candidal intertrigo B37.2 Active 637710809 Problem Cystocele, midline N81.11 Active 769897004 Problem Ileostomy present Z93.2 Active 317731054 Problem Candidiasis of vulva and vagina B37.3 Active 55307901 Problem Gout, unspecified cause, unspecified chronicity, unspecified site M10.9 Active 43519666 Problem Body mass index (BMI) of 36.0-36.9 in adult Z68.36 Active 685105195 Problem Psychophysiological insomnia F51.04 Active 241 08929 Problem Dependence on other enabling machines and devices Z99.89 Active 390037644 Problem Type 2 diabetes mellitus wit h diabetic polyneuropathy, without long-term current use of insulin E11.42 Active 73194674 Problem Recurrent sinusitis J32.9 Active 768125950 Problem Hypertension, unspecified type I10 Active 3 7104672 Problem Gastroesophageal reflux disease without esophagitis K21.9 Active 526163932 Problem Obstructive sleep apnea (adult) (pediatric) G47.33 Active 05877337 Problem Bipolar II disorder F31.81 Active 17033556 Problem Morbid (severe) obesity due to excess calories E66 .01 Active 450521527 ALLERGIES Allergen (clinical drug ingredient) Drug/Non Drug Allergy do cumented on EMR Reaction Allergy Type Onset Date Status morphine Morphine Sulfate([facility] Code:[address]-28) vomiting/tatyana re Drug Allergy Active amitriptyline Amitriptyline HCl([facility] Code:[address]-37) Dyspnea Dr gonzalez Allergy Active meperidine Demerol([facility] Code:[address]-60) vomiting/severe Drug Aller gy Active ENCOUNTERS from 1955 to 2020-08-29 Encounter Location Date Provider Diagnosis [facility] Resident [address] [facility] [place] [address] Aug, [facility] Tamir IMMUNIZATIONS Vaccine Route Administration Date Status Influenza (18 yrs & older) Flublok IM Intramuscular Jun 01, 2019 Administered Pneumococcal Adult 0.5mL (Pneumovax 23) IM Intramuscular Jun 01, 2019 Administered SOCIAL HISTORY Tobacco Use: Social History Observation Description Date Details (start date - stop date) Never Smoker Sex Assigned At : Social History Observation Description Sex Assigned At Unknown Education: Question Answer Notes Level of Education: High School Audit Question Answer Notes Total Score: 0 Interpretation: Alcohol Education Sexual Hx: Question Answer Notes Had sex in the last 12 months (vaginal, oral, or anal)? No Have you ever had an STD? No Drug and Alcohol Question Answer Notes Total Score: 0 Interpretation: No problems reported BMI Care Goal Follow-Up Question Answer Notes Above Normal BMI Follow-Up Giving encouragement to exercise Tobacco Use: Question Answer Notes Are you a: never smoker never smoker REASON FOR REFERRAL No Information VITAL SIGNS No information MEDICATIONS Medication SIG (Take, Route, Frequency, Duration) Notes Start Da te End Date Status Melatonin 10 MG as directed Orally N ot-Taking Vitamin D 56291 UNIT 1 capsule Orally once a wk. Active May Have - please dispense ileostomy wa fers and bags topically Daily for 90 day(s) Mar, Active Ramelteon 8 mg 1 tablet at bedtime Orally Once a day x 7 days Active Super B Complex - as directed Orally Daily for 30 days Active Trulicity 1.5 MG/0.5ML as directed Subcutaneous weekly Active Omeprazole 40 MG 1 capsule Orally Once a day for 30 days Active PredniSONE 10 MG as directed Orally Take 4 ta bs daily x 3 days, then 3 tabs daily x 3 days, then 2 tabs daily x 3 days, then 1 tab daily x 3 days Active Gabapentin 300 MG 1 capsule Orally two times a day for 90 Active Metformin HCl 1000 MG 1 tablet with meals Orally Twice a day Active Duloxetine HCl 60 MG 1 capsule Orally Once a day Active Quetiapine Fumarate 50 MG 1 tablet at bedtime Orally before bedtime Active Amoxicillin-Pot Clavulanate 875-125 MG 1 tablet Orally every 12 hrs for 10 day(s) Mar, Not-Taking Carvedilol 3.125 MG 1 tablet with food Orally Twice a day Active Magnesium Oxide 400 MG 1 tablet with food Orally Once a day for 30 da ys Active Oxygen as directed nasal cannula 2 L continuous Active PROCEDURES No Information RESULTS No Results REASON FOR VISIT [facility] D/C 08/28; Pneumonia Due to COVID-19 MEDICAL (GENERAL) HISTORY Type Description Date Medical History BERNARD Medical History HTN, Goal of < 130/90 Medical History diabetes mellitus, 6.5 - 7% Medical History Insomnia Medical History Bipolar Dx Medical History kidney stones Medical History Gout Medical History acid reflux Medical History Septal Abscess, MRSA+ Medical History Hx of UC, s/p Ileostomy Surgical History hysterectomy, total with BSO with cerv ical preservation 2006 Surgical History ileostomy/ and appendectomy- --- resite of ileostomy from left to right yrs. later 1984 Surgical History 10+ Hernia repairs/has mesh Surgical History CYSTO / STENT PLACEMENT after hyster. Surgical History thyroidectomy, subtotal---Dr. lopez after hyster. Surgical History Tonsils and adenoids 7 th grade Surgical History cholecystectomy before hyster. Surgical History colonoscopy no longer needs 1984 Surgical History ESWL 07/15/14 Surgical History right hip replacement 2016 Surgical History BL cataracts Surgical History upper and lower teeth extractions 05/23 Surgical History Septal Abscess and repair 2014 Hospitalization History Kidney stones 2010 Goals Section No Information Health Concerns No Information MEDICAL EQUIPMENT No Information MENTAL STATUS No Information FUNCTIONAL STATUS No Information ASSESSMENTS Encounter Date Diagnosis Assessment Notes Treatment Notes Treatm ent Clinical Notes Aug, Other [id number] @ 105 5: Welfare Eligibility Worker called and spoke with pt. Pt reports she is doing well at this time. Pt reports she is on 2 L of oxygen via NC continuously. Pt reports she has a pulse ox and is sating around 92%. Pt reports she has some SOB with exertion as she was not allowed to move around much while inpatient. Pt reports she is eating and drinking without difficulty. Welfare Eligibility Worker spoke with pt on 08/10/20 and advised to be tested for COVID. Pt reports she was sent to ED from based on symptoms and admitted. Pt reports she is currently on Ramelteon x 7 days ad is looking for this medication to be extended. Pt verified current medications. Pt confirmed upcoming appointment. Pt reports she does not have any questions or concerns at this time. Welfare Eligibility Worker advised to contact clinic if there are any changes or concerns. Pt agreed with plan. Luis Armando Dumont RN. PLAN OF TREATMENT Next Appt Details Provider Name:Karthik Garnett, 2020-08-31 0 9:30:00 AM, [address] [place] [address], [place], [place], [id number], Insurance Providers Payer Name Payer Address Payer Phone Insured Name Patient Relati onship to Insured Coverage Start Date Coverage End Date BCBS [facility] PPO [phone] [facility] [id number] Maksim Daniel MEDICARE Part A and B [facility] [address] [place] [phone] GAMALIEL DANIEL self
--- OUTSIDE RECORDS SUMMARY | 2020-08-31 10:18 | CCD ---
Author Author [facility] Organization [facility] Address Unknown Phone Unavailable Care Team Providers Care Hand Box Coverer Name Role Phone Karthik Garnett Unavailable PROBLEMS Type Condition ICD9-CM Code [id number] Code Onset Dates Condition S tatus SNOMED Code Notes Problem Candidal intertrigo B37.2 Active 267328403 Problem Cystocele, midline N81.11 Active 225950354 Problem Ileostomy present Z93.2 Active 344744945 Problem Candidiasis of vulva and vagina B37.3 Active 06014616 Problem Gout, unspecified cause, unspecified chronicity, unspecified site M10.9 Active 89834103 Problem Body mass index (BMI) of 36.0-36.9 in adult Z68.36 Active 165828976 Problem Psychophysiological insomnia F51.04 Active 241 11362 Problem Dependence on other enabling machines and devices Z99.89 Active 108879797 Problem Type 2 diabetes mellitus wit h diabetic polyneuropathy, without long-term current use of insulin E11.42 Active 19843520 Problem Recurrent sinusitis J32.9 Active 098544161 Problem Hypertension, unspecified type I10 Active 3 5105258 Problem Gastroesophageal reflux disease without esophagitis K21.9 Active 389692435 Problem Obstructive sleep apnea (adult) (pediatric) G47.33 Active 72788996 Problem Bipolar II disorder F31.81 Active 62595820 Problem Morbid (severe) obesity due to excess calories E66 .01 Active 611795959 ALLERGIES Allergen (clinical drug ingredient) Drug/Non Drug Allergy do cumented on EMR Reaction Allergy Type Onset Date Status morphine Morphine Sulfate([facility] Code:[address]-17) vomiting/tatyana re Drug Allergy Active amitriptyline Amitriptyline HCl([facility] Code:[address]-74) Dyspnea Dr gonzalez Allergy Active meperidine Demerol([facility] Code:[address]-19) vomiting/severe Drug Aller gy Active ENCOUNTERS from 1955 to 2020-08-11 Encounter Location Date Provider Diagnosis [address] [address] Aug, [facility] Tamir IMMUNIZATIONS Vaccine Route Administration Date Status [...] Notes Start Da te End Date Status Amoxicillin-Pot Clavulanate 875-125 MG 1 tablet Orally every 12 hrs for 10 day(s) Mar, Not-Taking Super B Complex - as directed Orally Daily for 30 days Active Duloxetine HCl 60 MG 1 capsule Orally Once a day Active Melatonin 10 MG as directed Orally A ctive Carvedilol 3.125 MG as directed Orally Daily Active Magnesium Oxide 400 MG 1 tablet with food Orally Once a day for 30 da ys Active Vitamin D 47632 UNIT 1 capsule Orally once a wk. for 30 Active Quetiapine Fumarate 50 MG 1 tablet at bedtime Orally before bedtime Active May Have - please dispense ileostomy wa fers and bags topically Daily for 90 day(s) Mar, Active Metformin HCl 1000 MG 1 tablet with meals Orally Twice a day Active Omeprazole 40 MG 1 capsule Orally Once a day for 30 days Active Losartan Potassium 25 MG 1 tablet Orally Once a day Active Trulicity 1.5 MG/0.5ML as directed Subcutaneous weekly Active Gabapentin 300 MG 1 capsule Orally two times a day for 90 Active PROCEDURES No Information RESULTS No Results REASON FOR VISIT Breathing issues, cough MEDICAL (GENERAL) HISTORY Type Description Date Medical [...] ESWL 07/15/14 Surgical History right hip replacement 2015 Surgical History BL cataracts Surgical History upper and lower teeth extractions 05/23 Surgical History Septal Abscess and repair 2014 Hospitalization History Kidney stones 2010 Goals Section No Information Health Concerns No Information MEDICAL EQUIPMENT No Information MENTAL STATUS No Information FUNCTIONAL STATUS No Information ASSESSMENTS No Information PLAN OF TREATMENT Medication Medication Name Sig Start Date Stop Date Carvedilol 3.125 MG as directed Orally Daily Losartan Potassium 25 MG 1 tablet Orally Once a day Trulicity 1.5 MG/0.5ML as directed Subcutaneous weekly Quetiapine Fumarate 50 MG 1 tablet at bedtime Orally before bedt guevara Metformin HCl 1000 MG 1 tablet with meals Orally Twice a day Insurance Providers Payer Name Payer Address Payer Phone Insured Name Patient Relati onship to Insured Coverage Start Date Coverage End Date MEDICARE Part A and B [address] [facility] [id number] GAMALIEL DANIEL self BCBS [facility] [phone] [facility] [employer] [place] [facility] [facility] [address] Maksim Daniel
--- OUTSIDE RECORDS SUMMARY | 2020-08-31 10:18 | CCD | Continuity of Care Document ---
Author Author Iwona THORNE Organization Unknown Address [address] [place] [address] [place] [address] Phone [phone] Care Team Providers Care Specifications Checker Name Role Phone [facility] [place] [facility] [phone] Problems Description No Information Available Social History [...] Available Procedures Date Code Description Status 08/10/2020 36365 Electrocardiogram Complete Compl eted Medical Devices Description [...]
--- OUTSIDE RECORDS SUMMARY | 2020-08-31 10:18 | CCD ---
Author Author [facility] Organization [facility] Address Unknown Phone Unavailable Care Team Providers Care Diamond Driller Name Role Phone Karthik Garnett Unavailable PROBLEMS Type Condition ICD9-CM Code [id number] Code Onset Dates Condition S tatus SNOMED Code Notes Problem Candidal intertrigo B37.2 Active 297039365 Problem Cystocele, midline N81.11 Active 561354187 Problem Ileostomy present Z93.2 Active 652223411 Problem Candidiasis of vulva and vagina B37.3 Active 63696326 Problem Gout, unspecified cause, unspecified chronicity, unspecified site M10.9 Active 55534424 Problem Body mass index (BMI) of 36.0-36.9 in adult Z68.36 Active 760693452 Problem Psychophysiological insomnia F51.04 Active 241 81637 Problem Dependence on other enabling machines and devices Z99.89 Active 305718900 Problem Type 2 diabetes mellitus wit h diabetic polyneuropathy, without long-term current use of insulin E11.42 Active 47427461 Problem Recurrent sinusitis J32.9 Active 036956512 Problem Hypertension, unspecified type I10 Active 3 3099434 Problem Gastroesophageal reflux disease without esophagitis K21.9 Active 502453842 Problem Obstructive sleep apnea (adult) (pediatric) G47.33 Active 71786654 Problem Bipolar II disorder F31.81 Active 15854640 Problem Morbid (severe) obesity due to excess calories E66 .01 Active 513786603 ALLERGIES Allergen (clinical drug ingredient) Drug/Non Drug Allergy do cumented on EMR Reaction Allergy Type Onset Date Status morphine Morphine Sulfate([facility] Code:[address]-43) vomiting/tatyana re Drug Allergy Active amitriptyline Amitriptyline HCl([facility] Code:[address]-00) Dyspnea Dr gonzalez Allergy Active meperidine Demerol([facility] Code:[address]-65) vomiting/severe Drug Aller gy Active ENCOUNTERS from 1955 to 2020-08-22 Encounter Location Date Provider Diagnosis [facility] Resident [address] [place] [address] Jan, Karthik Tamir Psychophysiological insomnia F51.04 ; Hypertension, unspecified type I10 ; Bipolar II disorder F31.81 ; Obstructive sleep apnea (adult) (pediatric) G47.33 ; Fatigue, unspecified type R53.83 ; Ileostomy present Z93.2 and Type 2 diabetes mellitus with diabetic polyneuropathy, without long-term current use of insulin E11.42 IMMUNIZATIONS Vaccine Route Administration Date Status Influenza [...] REASON FOR REFERRAL No Information VITAL SIGNS Weight 234.2 lbs Jan, Height 66 in Jan, BMI 37.80 kg/m2 Jan, Heart Rate 120 /min Jan, Respiratory Rate 18 /min Jan, Temperature 97.1 degrees Fahrenheit Jan, Oximetry 93 Jan, Blood pressure systolic 122 mm Hg Jan, Blood pressure diastolic 80 mm Hg Jan, MEDICATIONS Medication SIG (Take, Route, Frequency, Duration) [...] for 30 da ys Active Vitamin D 71766 UNIT 1 capsule Orally once a wk. [...] Information RESULTS No Results REASON FOR VISIT 1 month labs, 1 month follow up medication change MEDICAL (GENERAL) HISTORY Type Description Date Medical [...] Notes Treatment Notes Treatm ent Clinical Notes Jan, Psychophysiological insomnia (ICD-10 - F51.04) Pt reports improvement in her sleep following cessation of ambien and starting seroquel 50 mg QHS. Morning fatigue has also improved since changing the time she takes her Seroquel in the evenings, namely 30-45 minutes prior to desired sleep onset. TSH evaluated and found to be within normal limits. Continue to monitor going forward. Jan, Hypertension, unspecified type (ICD-10 - I10) Continue current regimen. CMP and CBC ordered last visit without any acute abnormalities. Jan, Bipolar II disorder (ICD-10 - F31.81) Pt reports no dramatic changes in mood since transition from aripiprazole to seroquel on 11/07. Triglycerides remain elevated the patient's cholesterol is controlled. Discussed lifestyle modifications and healthy eating habits in order to combat the hypertriglyceridemia. Discussed possible pharmacologic intervention should her levels raised to 400-500. Plan to repeat in 6 months. Jan, Obstructive sleep apnea (adult) (pediatric) (ICD -10 - G47.33) Reports nightly compliance with CPAP. Follows with Dr. Waite. Next appointment scheduled for 01/22. Jan, Fatigue, unspecified type (ICD-10 - R53.83) Pt does report increasing morning fatigue and lethargy. Suspect this is related to her Seroquel. Thyroid labs within normal limits. Reports compliance with CPAP. Will continue to monitor for improvement at next scheduled visit. Jan, Ileostomy present (ICD-10 - Z93.2) Ileostomy 2/[address] since 1984. No problems. Jan, Type 2 diabetes mellitus wit h diabetic polyneuropathy, without long-term current use of insulin (ICD-10 - E11.42) Last A1c of 5.9 in 01/22. Continue on current regimen, plan for diabetic visit in 6 months, as her last was in 07/23. PLAN OF TREATMENT Medication Medication Name Sig Start Date Stop Date Carvedilol 3.125 MG as directed Orally Daily Losartan Potassium 25 MG 1 tablet Orally Once a day Trulicity 1.5 MG/0.5ML as directed Subcutaneous weekly Quetiapine Fumarate 50 MG 1 tablet at bedtime Orally before bedt guevara Metformin HCl 1000 MG 1 tablet with meals Orally Twice a day Treatment Notes Assessment Notes Clinical Notes Psychophysiological insomnia Pt reports improvement in her sleep following cessation of ambien and starting seroquel 50 mg QHS. Morning fatigue has also improved since changing the time she takes her Seroquel in the evenings, namely 30-45 minutes prior to desired sleep onset. TSH evaluated and found to be within normal limits. Continue to monitor going forward. Hypertension, unspecified type Continue current regimen. CMP and CBC ordered last visit without any acute abnormalities. Bipolar II disorder Pt reports no dramat ic changes in mood since transition from aripiprazole to seroquel on 11/07. Triglycerides remain elevated the patient's cholesterol is controlled. Discussed lifestyle modifications and healthy eating habits in order to combat the hypertriglyceridemia. Discussed possible pharmacologic intervention should her levels raised to 400-500. Plan to repeat in 6 months. Obstructive sleep apnea (adult) (pediatric) Reports nightly compliance with CPAP. Follows with Dr. Waite. Next appointment scheduled for 01/22. Fatigue, unspecified type Pt does report increasing morning fatigue and lethargy. Suspect this is related to her Seroquel. Thyroid labs within normal limits. Reports compliance with CPAP. Will continue to monitor for improvement at next scheduled visit. Ileostomy present Ileostomy 2/ to . In place since 1984. No problems. Type 2 diabetes mellitus with diabetic p olyneuropathy, without long-term current use of insulin Last A1c of 5.9 in 01/22. Co ntinue on current regimen, plan for diabetic visit in 6 months, as her last was in 07/23. Next Appt Details 6 months Reason:Follow-up Follow Up:6 monthsFollow-up Insurance Providers Payer Name Payer Address Payer Phone Insured Name Patient Relati onship to Insured Coverage Start Date Coverage End Date MEDICARE Part A and B [address] [facility] [phone] GAMALIEL DANIEL self [facility] [phone] [facility] Deed SRINIVAS L[place] [address] Maksim Daniel
[2020-08-31] MEDS ORDERED: ISOVUE-370 76% 100ML VIAL As Ordered ONE (11:00)
--- NOTE | 2020-08-31 11:07 | REP ---
INDICATION: DYSPNEA/COUGH COMPARISON: 08/26/2020, 08/10/2020 TECHNIQUE: Portable AP view of the chest FINDINGS: Chronic changes are appreciated with superimposed diffuse bilateral ill-defined airspace disease and possible left effusion. No pneumothorax. Mediastinum and cardiac silhouette relatively stable. IMPRESSION: Ill-defined diffuse bilateral infiltrates which may be slightly increased when compared with 08/22/2020 and 08/10/2020. <Electronically signed by Marciano Lopez > 08/31/20 1100
[2020-08-31 11:10] LABS: BASO # 0.1 10^3/uL (0.0-0.2); BASO % 0.3 % (0.0-1.0); EOS # 0.4 10^3/uL (0.0-0.5); EOS % 2.7 % (0.0-3.0); HEMATOCRIT 45.8 % (36.0-47.0); HEMOGLOBIN 15.1 g/dl (12.0-15.5); LYMPH # 2.1 10^3/uL (1.5-5.0); LYMPH % 13.3 % (24.0-44.0); MEAN CORPUSCULAR HEMOGLOBIN 29.6 pg (27.0-33.0); MEAN CORPUSCULAR VOLUME 89.8 fl (80.0-96.0); MONO % 6.3 % (0.0-5.0); NEUTROPHILS % 76.3 % (36.0-66.0); PLATELET COUNT, AUTOMATED 235 10^3/uL (150-450); WHITE BLOOD COUNT 15.8 10^3/uL (4.0-10.0)
[2020-08-31 11:20] LABS: INR 0.94; PROTHROMBIN TIME 12.8 SECONDS (12.5-14.3)
--- OUTSIDE RECORDS SUMMARY | 2020-08-31 11:37 | CCD ---
Author Author [facility] Organization [facility] Address Unknown Phone Unavailable Care Team Providers Care Lamp Developer Name Role Phone Vero BARNETT DPM Unavailable [...] is protected by Article 27-F of the [facility] Public Health law. If you continue you may have access to information: Regarding HIV / AIDS; Provided by facilities licensed or operated by the [facility] Office of Mental Health; or Provided by the [facility] Office for People With Developmental Disabilities. If such information is present, then the following [facility] mandated warning applies: This information has been [...] law may result in a fine or mcfp sentence or both. A general authorization for the release of medical or other information is NOT sufficient authorization for further disc losure. Allergies and Adverse Reactions Type Description Substance Reaction Status Data Source(s ) Drug allergy Demerol Meperidine vomiting/severe Active eCW1 ( [facility]) Drug allergy Amitriptyline HCl Amitriptyline Dyspnea Active eC W1 ([facility]) Drug allergy Morphine Sulfate Morphine vomiting/severe Active eCW1 ([facility]) Family History Family Member Name Family Member Gender Family Member Status Date o f Status Description Data Source(s) Unknown Unknown Problem MEDENT ([facility]) Unknown Male Problem MEDENT ([facility] () Unknown Male Problem MEDENT ([facility]) at age 87 Unknown Male Problem MEDENT ([facility]) Unknown Male Problem MEDENT ([facility] ) Encounters Encounter Providers Location Date Indications Data Source(s ) [place] [address] [facility] [address] 08/29/2020 12:00:00 AM EST eCW1 ([facility]) Outpatient Attender: KIESHA cortez 08/10/2020 12:45:00 PM EST MEDENT ([facility] [place] [address] [facility] [address] 08/10/2020 12:00:00 AM EST eCW1 ([facility]) Outpatient Attender: AMADA BARNETT [facility] 12/2019 09:30:00 AM EST MEDENT ([facility] [place] [address] [facility] [address] 05/17/2020 12:00:00 AM EDT eCW1 ([facility]) [place] [address] [facility] [address] 05/17/2020 12:00:00 AM EDT eCW1 ([facility]) [place] [address] [facility] [address] 02/23/2020 12:00:00 AM EDT eCW1 ([facility]) Outpatient Attender: AMADA BARNETT [facility] 01/04 02:45:00 PM EDT MEDENT ([facility] [place] [address] [facility] [place] [address] 01/18/2020 12:00:00 AM EDT eCW1 ([facility]) Outpatient [address] [facility] [place] [address] 12/18/2019 12:00:00 AM EDT eCW1 ([facility]) Unknown [address] [facility] [address] 11/30/2019 12:00:00 AM EDT eCW1 ([facility] [address] [place] [phone] 11/30/2019 12:00:00 AM EDT eCW1 ([facility]) [facility] [address] [place] [address] [place] [address] 11/25/2019 12:00:00 AM EDT eCW1 ([facility] Resident [address] [place] [phone] 11/20/2019 12:00:00 AM EDT eCW1 ([facility] Resident [address] [place] [phone] 11/09/2019 12:00:00 AM EDT eCW1 ([facility] [address] [place] [phone] 11/09/2019 12:00:00 AM EDT [facility]CW1 [facility] [address] [place] [phone] 11/09/2019 12:00:00 AM EDT eCW1 ([facility] Outpatient Attender: SANDI Mahoney 10/18/2019 04:00:00 PM EDT MEDENT ([facility]) [facility] Resident [address] [place] [phone] 09/29/2019 12:00:00 AM EST eCW1 ([facility] Resident [address] [place] [phone] 09/02/2019 12:00:00 AM EST eCW1 ([facility] [address] [place] [address] Y [address] 08/31/2019 12:00:00 AM EST eCW1 ([facility]) [address] [address] 08/28/2019 12:00:00 AM EST eCW1 ([facility]) [address] [address] 08/26/2019 12:00:00 AM EST eCW1 ([facility]) [facility] Resident [address] [place] [phone] 08/26/2019 12:00:00 AM EST eCW1 ([facility]) [address] [address] 08/21/2019 12:00:00 AM EST eCW1 ([facility]) [address] [address] 08/21/2019 12:00:00 AM EST eCW1 ([facility]) Outpatient Attender: AMADA BARNETT [facility] 08/05 12:45:00 PM EST MEDENT ([facility] Resident [address] [place] [phone] 07/31/2019 12:00:00 AM EST eCW1 ([facility]) [address] [address] 07/27/2019 12:00:00 AM EST eCW1 ([facility]) [facility] Resident [address] [place] [phone] 07/21/2019 12:00:00 AM EST eCW1 ([facility]) Medications Medication Brand Name Start Date Product [...] EDT active 1 tablet at bedtime eC ([facility]) quetiapine 50 MG Oral Tablet Quetiapine Fumarate 50 MG Quetiapine Fumarate 50 MG 11/09/2019 12:00:00 AM EDT active 1 tablet at bedtime eC ([facility]) quetiapine 50 MG Oral Tablet Quetiapine Fumarate 50 MG Quetiapine Fumarate 50 MG 11/09/2019 12:00:00 AM EDT active 1 tablet at bedtime eC ([facility]) quetiapine 50 MG Oral Tablet QUETIAPINE FUMARATE [...] EDT active 1 tablet as needed eC1 ([facility]) benzonatate 100 MG Oral Capsule Benzonatate 100 MG Benzonata te 100 MG 11/09/2019 12:00:00 AM EDT active 1 capsul e as needed eC ([facility]) Sulfamethoxazole 800 MG / Trimethoprim 160 MG Oral Tablet [B actrim] Bactrim DS 10/18/2019 12:00:00 AM EDT ORAL active MEDENT ([facility]) 800-160 mg 10/18/2019 12:00:00 AM EDT tablet [...] 1 tablet at bedtime as needed eC ([facility]) 300 mg 08/31/2019 12:00:00 AM EST capsule [...] type / Coverage type Policy ID Covered green party ID Covered green party's relationship to mckeon Policy [place] Plan Information MEDICARE [id number] SP [id number] [place]/307 [id number] HU2 [id number] [place]/307 [id number] HU2 [id number] MEDICARE [id number] SP [id number] MEDICARE C [id number] S [id number] [place] BCBS B [id number] S [id number] MEDICARE [id number] SP [id number] X52 [place]/307 [id number] HU2 [id number] ANSI-Commercial [id number] ANSI-Medicare Part B [id number] ANSI-Commercial [id number] ANSI-Medicare Part B [id number] ANSI-Medicare Part B [id number] ANSI-Commercial [id number] BCBS/Excellus Medigap Part B [id number] Family Dependent [id number] Medicare Natl Gov't Servi Medicare Primary [id number] Self [id number] Medicare Medigap Part B [id number] Self [id number] BS [place] Medigap Part B [id number] Family Depend ent [id number] Medicare Dme Medicare Primary [id number] Self [id number] BCBS Excell[place] U/W Medigap Part B [id number] Family Depende nt [id number] Medicare (Part B) Medicare Primary [id number] Self [id number] BCBS/[place]us Medigap Part B [id number] Family Dependent [id number] Medicare Natl Gov't Servi Medicare Primary [id number] Self [id number] Medicare Dme Medigap Part B [id number] Self [id number] BS [place] Medigap Part B [id number] Family Depend ent [id number] Medicare Medicare Primary [id number] Self [id number] Medicare Dme Medigap Part B [id number] Self [id number] BS [place] Medigap Part B [id number] Family Depend ent [id number] Medicare Medicare Primary [id number] Self [id number] Medicare Dme Medigap Part B [id number] Self [id number] BS [place] Medigap Part B [id number] Family Depend ent [id number] Medicare Medicare Primary [id number] Self [id number] BCBS Excell[place] U/W Medigap Part B [id number] Family Depende nt [id number] Medicare (Part B) Medicare Primary [id number] Self [id number] Medicare Medigap Part B [id number] Self [id number] BS [place] Medigap Part B [id number] Family Depend ent [id number] Medicare Dme Medicare Primary [id number] Self [id number] BCBS Excell[place] U/W Medigap Part B [id number] Family Depende nt [id number] Medicare (Part B) Medicare Primary [id number] Self [id number] Medicare Dme Medigap Part B [id number] Self [id number] BS [place] Medigap Part B [id number] Family Depend ent [id number] Medicare Medicare Primary [id number] Self [id number] MEDICARE [id number] SP [id number] A BCBS Excell[place] U/W Medigap Part B [id number] Family Depende nt [id number] Medicare (Part B) Medicare Primary [id number] Self [id number] BS [place] Medigap Part B [id number] Family Depend ent [id number] Medicare Medicare Primary [id number] Self [id number] Blue Cross Blue Shield P [id number] SPOUSE [id number] Medicare C [id number] SELF [id number] A [place]/307 [id number] HU2 [id number] Excellus BCBS Medigap Part B [id number] Family Dependent [id number] [place] Medicare Primary [id number] Self [id number] MEDICARE C [id number] S [id number] A BCBS Excell[place] Ppo U/W Medigap Part B [id number] Family Dep endent [id number] Medicare (Part B) Medicare Primary [id number] Self [id number] Excellus BCBS Medigap Part B [id number] Family Dependent [id number] [place] Medicare Primary [id number] Self [id number] BCBS/[place]cellus Medigap Part B [id number] Family Dependent [id number] Medicare Natl Gov't Servi Medicare Primary [id number] Self [id number] BS [place] Medigap Part B [id number] Family Depend ent [id number] [place] Medicare Primary [id number] Self [id number] BCBS/Excellus Medigap Part B [id number] Family Dependent [id number] Medicare Natl Gov't Servi Medicare Primary [id number] Self [id number] MEDICARE [id number] SP [id number] A Blue Cross Blue Shield P [id number] SPOUSE [id number] Medicare C [id number] SELF [id number] A BCBS/[place]cellus Medigap Part B [id number] Family Dependent [id number] Medicare Natl Gov't Servi Medicare Primary [id number] Self [id number] BCBS/[place]cellus Medigap Part B [id number] Family Dependent [id number] Medicare Natl Gov't Servi Medicare Primary [id number] Self [id number] Excellus BCBS Medigap Part B [id number] Family Dependent [id number] [place] Medicare Primary [id number] Self [id number] Excellus BCBS Medigap Part B [id number] Family Dependent [id number] [place] Medicare Primary [id number] Self [id number] [place]/307 [id number] HU2 [id number] Excellus BCBS Medigap Part B [id number] Family Dependent [id number] [place]GS Medicare Primary [id number] Self [id number] Excellus BCBS Medigap Part B [id number] Family Dependent [id number] [place] Medicare Primary [id number] Self [id number] MEDICARE [id number] SP [id number] A Excellus BCBS Medigap Part B [id number] Family Dependent [id number] Medicare [place] Medicare Primary [id number] Self [id number] Excellus BCBS Medigap Part B [id number] Family Dependent [id number] Medicare [place]/N[place] Medicare Primary [id number] Self [id number] Excellus BCBS Health Maintenance Organization (HMO) Family Dependent BCBS [place]/307 [id number] HU2 [id number] BCBS [place]PO 302/307 [id number] HU2 [id number] BCBS/Excellus Commercial Family Dependent EXCELLUS BCBS [id number] Spo YND [id number] MEDICARE [id number] Tere [id number] A BS [place] Commercial Family Dependent Blue Cross Blue Shield P [id number] SPOUSE [id number] BCBS [place] 304/804 [id number] HU2 [id number] BCBS [place] PPO 302/307 [id number] HU2 [id number] EXCELLUS BCBS P [id number] P VYS BCBS [place] PPO 302/307 [id number] HU2 [id number] Surgeries/Procedures Procedure Description Date Indications Data Source(s) ECG ROUTINE ECG W/LEAST 12 LDS W/I&R 08/10/2020 12:00: 00 AM EST MARLENE ([facility]) PHYSICIAN TELEPHONE EVALUATION 11-20 MIN 11/20/2019 12 :00:00 AM EDT eCW1 ([facility]) Office Visit, Est Pt., Level 4 PC 11/09/2019 12:00:00 AM EDT eCW1 ([facility]) Office Visit, Est Pt., Level 2 FC 11/09/2019 12:00:00 AM EDT eCW1 ([facility]) Office Visit, Est Pt., Level 3 PC 09/29/2019 12:00:00 AM EST eCW1 ([facility]) Results ID Date Data Source [id number] 08/10/2020 05:08:00 PM EST [facility] Name Value Range Interpretation Code Description Data Marquita rce(s) Supporting Document(s) Respiratory pathogens identified [Type] in Nasopharynx by Probe and target amplification method SARS-CoV-2 (COVID 19) [facility] [place] This lab was ordered by [facility] a nd reported by [facility]. ID Date Data Source [id number] 08/10/2020 12:00:00 AM EST [facility] Name Value Range Interpretation Code Description Data Marquita rce(s) Supporting Document(s) SARS coronavirus 2 Ag [facility] This lab was ordered by [facility] and reported by [facility]. ID Date Data Source [id number] 10/18/2019 04:44:00 PM EDT MEDENT ([facility]) Name Value Range Interpretation Code Description Data Marquita rce(s) Supporting Document(s) Bacteria identified in Urine by Culture <pending> MEDENT ([facility]) Procedure Social History Code Duration Value Status Description Data Source(s ) Smoking 08/10/2020 12:00:00 AM EST Patient has never smoked co mpleted Patient has never smoked MEDENT ([facility]) Smoking 07/20/2020 12:00:00 AM EST Never Smoker completed Never S moker eCW1 ([facility]) Smoking 07/20/2020 12:00:00 AM EST Never Smoker completed Never S moker eCW1 ([facility]) Smoking 07/20/2020 12:00:00 AM EST Never Smoker completed Never S moker eCW1 ([facility]) Smoking 01/18/2020 12:00:00 AM EDT Never Smoker completed Never S moker eCW1 ([facility]) Smoking 01/18/2020 12:00:00 AM EDT Never Smoker completed Never S moker eCW1 ([facility]) Smoking 01/18/2020 12:00:00 AM EDT Never Smoker completed Never S moker eCW1 ([facility]) Smoking 01/12/2020 12:00:00 AM EDT Never Smoker completed Never S moker eCW1 ([facility]) Vital Signs ID Date Data Source UNK Name Value Range Interpretation Code Description Data Source(s) Body mass index (BMI) [Ratio] 35.3 kg/m2 35.3 k g/m2 MEDENT ([facility]) Body height 68 [in_i] 68 [in_i] MEDENT ([facility]) 5'8" Body weight 232.00 [lb_av] 232.00 [lb_av] MEDEN T ([facility], [facility]) Body temperature 97.3 [degF] 97.3 [degF] MEDENT ([facility]) Oxygen saturation in Arterial blood by Pulse oximetry 87 % 87 % MEDENT ([facility]) Respiratory rate 24 /min 24 /min MEDENT ( [facility]) Heart rate 112 /min 112 /min MEDENT ([facility]) Diastolic blood pressure 99 mm[Hg] 99 mm[Hg] MEDENT ([facility]) Systolic blood pressure 138 mm[Hg] 138 mm[Hg] M EDENT ([facility]) Diastolic blood pressure 80 mm[Hg] 80 mm[Hg] eCW1 ([facility]) Systolic blood pressure 122 mm[Hg] 122 mm[Hg] e CW1 ([facility]) Body temperature 97.1 [degF] 97.1 [degF] eCW1 ( [facility]) Respiratory rate 18 /min 18 /min eCW1 ([facility]) Heart rate 120 /min 120 /min eCW1 ([facility]) Body mass index (BMI) [Ratio] 37.80 kg/m2 37.80 kg/m2 W1 ([facility]) Body height 66 [in_i] 66 [in_i] eCW1 ([facility]) Body weight 234.2 [lb_av] 234.2 [lb_av] eCW1 ([facility]) Diastolic blood pressure 78 mm[Hg] 78 mm[Hg] eCW1 ([facility]) Systolic blood pressure 116 mm[Hg] 116 mm[Hg] e CW1 ([facility]) Body temperature 98.9 [degF] 98.9 [degF] eCW1 ( [facility]) Respiratory rate 20 /min 20 /min eCW1 ([facility]) Heart rate 89 /min 89 /min eCW1 ([facility]) Body mass index (BMI) [Ratio] 37.76 kg/m2 37.76 kg/m2 eCW1 ([facility]) Body height 66 [in_i] 66 [in_i] eCW1 ([facility]) Body weight 234.0 [lb_av] 234.0 [lb_av] eCW1 ([facility]) Diastolic blood pressure 80 mm[Hg] 80 mm[Hg] eCW1 ([facility]) Systolic blood pressure 112 mm[Hg] 112 mm[Hg] e CW1 ([facility]) Body temperature 97.6 [degF] 97.6 [degF] eCW1 ( [facility]) Respiratory rate 20 /min 20 /min eCW1 ([facility]) Heart rate 122 /min 122 /min eCW1 ([facility]) Body mass index (BMI) [Ratio] 36.93 kg/m2 36.93 kg/m2 eCW1 ([facility]) Body height 66 [in_us] 66 [in_us] eCW1 ([facility]) Body weight Measured 228.8 [lb_av] 228.8 [lb_av ] eCW1 ([facility]) Body mass index (BMI) [Ratio] 35.6 kg/m2 35.6 k g/m2 MEDENT ([facility]) Body height 68 [in_i] 68 [in_i] MEDENT ([facility]) 5'8" Body weight 234.00 [lb_av] 234.00 [lb_av] MEDEN T ([facility]) Body temperature 98.0 [degF] 98.0 [degF] MEDENT ([facility]) Oxygen saturation in Arterial blood by Pulse oximetry 95 % 95 % MEDENT ([facility]) Respiratory rate 20 /min 20 /min MEDENT ( [facility]) Heart rate 110 /min 110 /min MEDENT ([facility], [facility]) Diastolic blood pressure 94 mm[Hg] 94 mm[Hg] MEDENT ([facility]) Systolic blood pressure 132 mm[Hg] 132 mm[Hg] M EDENT ([facility], [facility]) Diastolic blood pressure 80 mm[Hg] 80 mm[Hg] eCW1 ([facility]) Systolic blood pressure 130 mm[Hg] 130 mm[Hg] e CW1 ([facility]) Body temperature 97.1 [degF] 97.1 [degF] eCW1 ( [facility]) Respiratory rate 20 /min 20 /min eCW1 ([facility]) Heart rate 74 /min 74 /min eCW1 ([facility]) Body mass index (BMI) [Ratio] 35.99 kg/m2 35.99 kg/m2 eCW1 ([facility]) Body height 66 [in_us] 66 [in_us] eCW1 ([facility]) Body weight Measured 223 [lb_av] 223 [lb_av] eC W1 ([facility]) Diastolic blood pressure 70 mm[Hg] 70 mm[Hg] eCW1 ([facility]) Systolic blood pressure 130 mm[Hg] 130 mm[Hg] e CW1 ([facility]) Body temperature 97 [degF] 97 [degF] eCW1 ([facility]) Respiratory rate 20 /min 20 /min eCW1 ([facility]) Heart rate 88 /min 88 /min eCW1 ([facility]) Body mass index (BMI) [Ratio] 35.18 kg/m2 35.18 kg/m2 eCW1 ([facility]) Body height 66 [in_us] 66 [in_us] eCW1 ([facility]) Body weight Measured 218 [lb_av] 218 [lb_av] eC W1 ([facility]) Body mass index (BMI) [Ratio] 35.4 kg/m2 [...] blood pressure 90 mm[Hg] 90 mm[Hg] eCW1 ([facility]) Systolic blood pressure 110 mm[Hg] 110 mm[Hg] e CW1 ([facility]) Body temperature 97.2 [degF] 97.2 [degF] eCW1 ( [facility]) Respiratory rate 20 /min 20 /min eCW1 ([facility]) Heart rate 84 /min 84 /min eCW1 ([facility]) Body mass index (BMI) [Ratio] 36.31 kg/m2 36.31 kg/m2 eCW1 ([facility]) Body height 66 [in_us] 66 [in_us] eCW1 ([facility]) Body weight Measured 225 [lb_av] 225 [lb_av] eC W1 ([facility]) Patient Treatment Plan of Care Planned Activity Planned Date Details Description Data Source (s) quetiapine 50 MG Oral Tablet 11/09/2019 12:00:00 AM EDT eCW1 ([facility]) DM-Guaifenesin ER 30-600 MG 11/09/2019 12:00:00 AM EDT eCW1 ([facility]) quetiapine 50 MG Oral Tablet 11/09/2019 12:00:00 AM EDT eCW1 ([facility]) benzonatate 100 MG Oral Capsule 11/09/2019 12:00:00 AM EDT eCW1 ([facility]) quetiapine 50 MG Oral Tablet 11/09/2019 12:00:00 AM EDT eCW1 ([facility]) Zolpidem tartrate 10 MG Oral Tablet [Ambien] 09/02/2019 12:00:00 AM EST eCW1 ([facility])
[2020-08-31 11:39] LABS: ALBUMIN 2.8 GM/DL (3.2-5.2); ALT/SGPT 30 U/L (12-78); BILIRUBIN,DIRECT 0.3 MG/DL (0.0-0.2); BLOOD UREA NITROGEN 22 MG/DL (7-18); CALCIUM LEVEL 9.6 MG/DL (8.8-10.2); CARBON DIOXIDE LEVEL 22 MEQ/L (21-32); CHLORIDE LEVEL 105 MEQ/L (98-107); CK-MB VALUE MASS 1.3 NG/ML (<3.6); CPK CREATINE PHOSPHOKINASE 26 U/L (26-192); CREATININE FOR GFR 1.07 MG/DL (0.55-1.30); GLOMERULAR FILTRATION RATE 55.3 (>45); GLUCOSE, FASTING 221 MG/DL (70-100); NT-PRO BNP 87 PG/ML (<125); SODIUM LEVEL 141 MEQ/L (136-145); THYROID STIMULATING HORMONE 0.668 uIU/ML (0.358-3.740); TOTAL PROTEIN 6.1 GM/DL (6.4-8.2); TROPONIN I < 0.02 NG/ML (< 0.10)
--- NOTE | 2020-08-31 12:09 | REP ---
INDICATION: shortness of breath/r/o PE/ s/p covid. COMPARISON: None TECHNIQUE: 100 cc Isovue [address] angiography of the pulmonary arteries FINDINGS: There is excellent visualization of the pulmonary arterial vasculature. No focal filling defects are present that would be considered consistent with pulmonary emboli. The thoracic aorta is within normal limits. There is no mediastinal or hilar adenopathy. There are no pleural or pericardial effusions. The imaged osseous structures are within normal limits. The imaged upper abdomen shows a large hiatal hernia. Evaluation of the lung good shows patchy scattered bilateral ground-glass and airspace opacities with patchy scattered bilateral increased interstitial markings. These areas could obscure a significant nodule. IMPRESSION: 1. There is no evidence of a pulmonary embolus. 2. Abnormal lung field findings as described above. Patient is status post COVID-19 infection and the finding likely represents sequelae from that infection. Follow-up is recommended. 3. There is a large hiatal hernia. <Electronically signed by Peter Lara > 08/31/20 [id number]
[2020-08-31 14:02] VITALS: BP 155/93
--- NOTE | 2020-08-31 14:54 | ECGEPIP ---
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
== END 2020-08-31 14:50 | disposition home or self-care (01) ==
LOC: M ED 10:09
DX: R06.00 Dyspnea, unspecified (principal); R00.0 Tachycardia, unspecified; E11.9 Type 2 diabetes mellitus without complications; E66.9 Obesity, unspecified; Z79.899 Other long term (current) drug therapy; Z79.84 Long term (current) use of oral hypoglycemic drugs; Z88.5 Allergy status to narcotic agent; Z88.8 Allergy status to other drugs, medicaments and biological substances
CPT/HCPCS: 36415; 71045; 71275; 80048; 80076; 82550; 82553; 83880; 84443; 84484; 85025; 85610; 93005; 93041; 94760; 99284; 99495; Q9967

== ENCOUNTER → 2020-10-14 | Outpatient (CLI) | payer MEDICARE, BC ==
--- NOTE | 2020-10-14 10:14 | REPPI ---
INDICATION: R06.00 DYSPNEA COMPARISON: 08/31/2020 TECHNIQUE: PA and lateral. FINDINGS: The mediastinum and cardiac silhouette are normal. The lung good demonstrate chronic changes without obvious acute consolidation, effusion, or pneumothorax. Skeletal structures intact. IMPRESSION: Chronic appearing changes. No obvious focal consolidation or effusion. <Electronically signed by Marciano Lopez > 10/14/20 [id number]
== END ==
LOC: M PLAIMG 09:44
PROVIDERS: ATTEND Student in an Organized Health Care Education/Training Program
DX: R06.00 Dyspnea, unspecified (principal)

== ENCOUNTER → 2020-10-27 | Outpatient (CLI) | payer MEDICARE, BC ==
[2020-10-27 15:34] LABS: BLOOD UREA NITROGEN 9 MG/DL (7-18); CREATININE FOR GFR 0.88 MG/DL (0.55-1.30); GLOMERULAR FILTRATION RATE > 60.0 (>45)
== END ==
LOC: M PLALAB 13:57
PROVIDERS: ATTEND Physician Assistant
DX: R91.8 Other nonspecific abnormal finding of lung field (principal)

== ENCOUNTER → 2020-11-16 | Outpatient (CLI) | payer MEDICARE, BC ==
[~2020-11-16] MED LIST changes: +ISOVUE-370 76% 100ML VIAL As Ordered ONE
--- NOTE | 2020-11-16 19:11 | REP ---
INDICATION: HYPOXEMIA, ACUTE RESP FAILURE,. COMPARISON: None. Comparison study August 31, 2020.. TECHNIQUE: Contrast dose: 75 ML of Isovue [address] technique: Helical scanning is acquired and overlapping 1.5 mm and contiguous 3 mm axial images are reformatted. In addition, maximum intensity projection and multiplanar re-formation images are generated in sagittal and coronal imaging projections. FINDINGS: There is good opacification in the pulmonary arterial tree. There is no evidence of vessel cut off or filling defect to suggest pulmonary embolus. Homogeneous opacity is seen in the thoracic aorta. There is no evidence of aneurysm or dissection. Lung window settings demonstrate considerable improvement in the multifocal infiltrates and ground-glass opacities seen at the time of the August 31, 2020 CT study. No new consolidation is appreciated. There are mild bilateral fibrotic changes. No pulmonary mass lesion or significant pulmonary nodule is seen. No pleural or pericardial effusion is seen. In the upper abdomen, there is a large hiatal hernia again noted. There are surgical clips adjacent to the hiatal hernia and in the left upper quadrant. Post cholecystectomy clips are also noted. Normal adrenal glands are again seen. IMPRESSION: No CT evidence of pulmonary embolus. Significant improvement in the bilateral pneumonitis pattern seen previously on August 31, 2020. No new consolidation is appreciated. <Electronically signed by Mateusz Bush > 11/16/20 [id number]
== END ==
LOC: M RAD 17:53
PROVIDERS: ATTEND Physician Assistant
DX: J96.01 Acute respiratory failure with hypoxia (principal); R91.8 Other nonspecific abnormal finding of lung field
CPT/HCPCS: 71275; Q9967

== ENCOUNTER → 2020-11-29 | Outpatient (REF) | payer MEDICARE, BC ==
[~2020-11-29] MED LIST changes: -ISOVUE-370 76% 100ML VIAL As Ordered ONE
[2020-11-29 10:08] LABS: BASO # 0.1 10^3/uL (0.0-0.2); BASO % 0.8 % (0.0-1.0); EOS # 0.4 10^3/uL (0.0-0.5); EOS % 2.3 % (0.0-3.0); HEMATOCRIT 43.9 % (36.0-47.0); HEMOGLOBIN 14.3 g/dl (12.0-15.5); LYMPH # 6.6 10^3/uL (1.5-5.0); LYMPH % 40.1 % (24.0-44.0); MEAN CORPUSCULAR HGB CONC 32.6 g/dl (32.0-36.5); MONO # 1.4 10^3/uL (0.0-0.8); MONO % 8.5 % (2.0-8.0); NEUTROPHILS # 7.8 10^3/uL (1.5-8.5); NEUTROPHILS % 47.9 % (36.0-66.0); PLATELET COUNT, AUTOMATED 406 10^3/uL (150-450); RED BLOOD COUNT 4.77 10^6/uL (4.00-5.40)
[2020-11-29 10:09] LABS: WHITE BLOOD COUNT 16.3 10^3/uL (4.0-10.0)
[2020-11-29 10:33] LABS: ALBUMIN 3.5 GM/DL (3.2-5.2); ALT/SGPT 25 U/L (12-78); BILIRUBIN,TOTAL 0.5 MG/DL (0.2-1.0); BLOOD UREA NITROGEN 22 MG/DL (7-18); CALCIUM LEVEL 9.2 MG/DL (8.8-10.2); CARBON DIOXIDE LEVEL 27 MEQ/L (21-32); CHLORIDE LEVEL 104 MEQ/L (98-107); CREATININE FOR GFR 0.96 MG/DL (0.55-1.30); FOLATE > 24.0 NG/ML; FREE T4 0.96 NG/DL (0.76-1.46); GLOMERULAR FILTRATION RATE > 60.0 (>45); GLUCOSE, FASTING 158 MG/DL (70-100); IRON (FE) 45 UG/DL (50-170); MAGNESIUM LEVEL 1.6 MG/DL (1.8-2.4); PERCENT SATURATION 11.1 % (13.2-45.0); POTASSIUM SERUM 3.5 MEQ/L (3.5-5.1); SODIUM LEVEL 141 MEQ/L (136-145); TOTAL IRON BINDING CAPACITY 407 UG/DL (250-450); TOTAL PROTEIN 6.7 GM/DL (6.4-8.2); VITAMIN B12 LEVEL 810 PG/ML
== END ==
LOC: M SFHCPLAZ 08:39
PROVIDERS: ATTEND Family Medicine
DX: R53.83 Other fatigue (principal); L65.9 Nonscarring hair loss, unspecified
CPT/HCPCS: 36415; 80053; 82607; 82746; 83550; 83735; 84439; 84443; 85025; G0463

== ENCOUNTER → 2021-02-21 | Outpatient (REF) | payer MEDICARE, BC ==
[~2021-02-21] MED LIST changes: +OMEP40CA4 PO; -OMEP40CA97 PO
== END ==
LOC: M SFHCPLAZ 10:12
PROVIDERS: ATTEND Family Medicine
DX: R31.0 Gross hematuria (principal); E11.42 Type 2 diabetes mellitus with diabetic polyneuropathy; D72.829 Elevated white blood cell count, unspecified

== ENCOUNTER → 2021-02-21 | Outpatient (CLI) | payer MEDICARE, BC ==
[2021-02-21 14:26] LABS: BASO # 0.1 10^3/uL (0.0-0.2); BASO % 0.9 % (0.0-1.0); EOS # 0.4 10^3/uL (0.0-0.5); EOS % 3.8 % (0.0-3.0); HEMATOCRIT 42.3 % (36.0-47.0); HEMOGLOBIN 13.7 g/dl (12.0-15.5); LYMPH # 3.3 10^3/uL (1.5-5.0); LYMPH % 32.2 % (24.0-44.0); MEAN CORPUSCULAR HGB CONC 32.4 g/dl (32.0-36.5); MEAN CORPUSCULAR VOLUME 89.4 fl (80.0-96.0); MONO # 0.7 10^3/uL (0.0-0.8); MONO % 6.7 % (2.0-8.0); NEUTROPHILS # 5.7 10^3/uL (1.5-8.5); NEUTROPHILS % 55.7 % (36.0-66.0); PLATELET COUNT, AUTOMATED 308 10^3/uL (150-450); RED BLOOD COUNT 4.73 10^6/uL (4.00-5.40); WHITE BLOOD COUNT 10.3 10^3/uL (4.0-10.0)
[2021-02-21 15:15] LABS: CALCIUM LEVEL 8.7 MG/DL (8.8-10.2); CREATININE FOR GFR 1.01 MG/DL (0.55-1.30); GLOMERULAR FILTRATION RATE 58.9 (>45)
[2021-02-21 15:58] LABS: AMORPHOUS SEDIMENT SMALL (NEGATIVE); APPEARANCE, URINE TURBID (CLEAR); BACTERIA, URINE AUTO 1+ (NEGATIVE); BILIRUBIN, URINE AUTO NEGATIVE (NEGATIVE); BLOOD, URINE BLOOD 3+ (NEGATIVE); COLOR, URINE YELLOW (YELLOW); GLUCOSE, URINE (UA) AUTO NEGATIVE (NEGATIVE); KETONE, URINE AUTO TRACE mg/dL (NEGATIVE); LEUKOCYTE ESTERASE, URINE AUTO 1+ (NEGATIVE); MUCUS, URINE SMALL (NEGATIVE); NITRITE, URINE AUTO NEGATIVE (NEGATIVE); PROTEIN, URINE AUTO 2+ mg/dL (NEGATIVE); RBC, URINE AUTO TNTC /HPF (0-3); SPECIFIC GRAVITY URINE AUTO 1.026 (1.002-1.035); SQUAMOUS EPITHELIAL CELL UR AU 1 /HPF (0-6); TRANSITIONAL EPITHELIAL AUTO 1 /HPF; UROBILINOGEN, URINE AUTO 0.2 mg/dL (0.0-2.0); WBC, URINE AUTO 23 /HPF (0-3)
[2021-02-21 16:31] LABS: MAU/CREAT RATIO 47.7 MCG/MG (0.0-30.0)
== END ==
LOC: M PLALAB 10:33
PROVIDERS: ATTEND Student in an Organized Health Care Education/Training Program
DX: R31.0 Gross hematuria (principal); E11.42 Type 2 diabetes mellitus with diabetic polyneuropathy; D72.829 Elevated white blood cell count, unspecified
CPT/HCPCS: 36415; 80048; 81001; 81002; 82043; 85025; G0463

== ENCOUNTER → 2021-03-15 | Outpatient (REF) | payer MEDICARE, BC ==
[~2021-03-15] MED LIST changes: -QUET50TA3 PO; +QUET50TA4 PO
[2021-03-15 14:29] LABS: APPEARANCE, URINE TURBID (CLEAR); BACTERIA, URINE AUTO NEGATIVE (NEGATIVE); BILIRUBIN, URINE AUTO 1+ (NEGATIVE); BLOOD, URINE BLOOD NEGATIVE (NEGATIVE); COLOR, URINE AMBER (YELLOW); GLUCOSE, URINE (UA) AUTO NEGATIVE (NEGATIVE); KETONE, URINE AUTO NEGATIVE (NEGATIVE); LEUKOCYTE ESTERASE, URINE AUTO 3+ (NEGATIVE); MUCUS, URINE SMALL (NEGATIVE); NITRITE, URINE AUTO NEGATIVE (NEGATIVE); PROTEIN, URINE AUTO 2+ mg/dL (NEGATIVE); RBC, URINE AUTO 2 /HPF (0-3); SPECIFIC GRAVITY URINE AUTO 1.024 (1.002-1.035); SQUAMOUS EPITHELIAL CELL UR AU 2 /HPF (0-6); UROBILINOGEN, URINE AUTO 0.2 mg/dL (0.0-2.0); WBC, URINE AUTO 85 /HPF (0-3)
[2021-03-21 18:09] LABS: Amm Acid Urate 50 % (.); Ca Ox Monohydrate 50 % (.); Size 13x7 mm (.)
== END ==
LOC: M SMT 13:24
PROVIDERS: ATTEND Nurse Practitioner Family
DX: R31.0 Gross hematuria (principal); N20.0 Calculus of kidney
CPT/HCPCS: 81001; 82365; 87086; 88108; G0463

== ENCOUNTER → 2021-03-21 | Outpatient (CLI) | payer MEDICARE, BC ==
[~2021-03-21] MED LIST changes: +ISOVUE-370 76% 100ML VIAL As Ordered ONE
--- NOTE | 2021-03-21 17:32 | REP ---
INDICATION: GROSS HEMATURIA. COMPARISON: Multiple the latest 05/08/2017 TECHNIQUE: Standard helical technique before and after intravenous contrast. 100 cc Isovue 370 was administered. Delayed imaging was obtained with MIP reformatted 3D images of the renal collecting system FINDINGS: There are chronic lung base changes status quo. The pre contrast enhanced portion exam shows 3 non-obstructing left nephroliths ranging from 3-5 mm in size. There is 1 4 mm size nonobstructing right nephrolith. The patient is status post cholecystectomy. Hepatic and splenic densities are within normal limits. [place] artifact arising from pelvic surgical clips and a right hip prosthesis obscure images of the pelvis the urinary bladder cannot be accurately assessed secondary to this. The contrast-enhanced portion examination shows multiple sub cm sized bilateral renal cortical focal areas of low density consistent with tiny renal cortical cysts. These are too small for precise CT characterization. No alaina enhancing renal masses are identified. The abdominal aorta and para-aortic regions are within normal limits. The liver and spleen are within normal limits. The pancreas and adrenal glands are within normal limits. There is no free fluid or free air. Postoperative changes are seen in the right upper quadrant and an ileostomy seen in place. The patient is status post colectomy. There is a small amount of soft tissue density in the pelvis which is unchanged from the prior CT likely postoperative change. There is no significant change in appearance of the ileostomy site. Delayed imaging shows no abnormal renal enhancement. There is no hydronephrosis or hydroureter. There is complete opacification of the left renal collecting system. There is incomplete opacification of the right renal collecting system where the mid and distal portions of the right ureter are not opacified, however, the very distal portion of the right ureter just proximal to the UV junction is opacified with contrast. No abnormal focal filling defects are identified on either side. There is poor visualization of the urinary bladder. A small filling defect on the left may be present. Bone window technique throughout the examination shows no evidence of a lytic or blastic osseous lesion. IMPRESSION: 1. Tiny renal cortical cysts as described above. 2. Status post total colectomy with ileostomy site. 3. No definite renal collecting system filling defect identified, however, incomplete opacification of the right ureter and poor visualization of the urinary bladder to such a degree a small defect cannot be ruled out. Consider cystoscopy with right-sided ureteroscopy if clinically relevant. 4. Other findings as described above. <Electronically signed by Peter Lara > 03/21/21 [id number]
== END ==
LOC: M RAD 16:48
PROVIDERS: ATTEND Nurse Practitioner Family
DX: R31.0 Gross hematuria (principal)
CPT/HCPCS: 74178; Q9967

== ENCOUNTER → 2021-04-18 | Outpatient (CLI) | payer MEDICARE, BC ==
[~2021-04-18] MED LIST changes: -ISOVUE-370 76% 100ML VIAL As Ordered ONE
--- NOTE | 2021-04-18 10:56 | REP ---
INDICATION: PAIN IN LEFT KNEE COMPARISON: None. TECHNIQUE: Five views left knee. FINDINGS: There is no evidence of acute fracture, dislocation, or intrinsic bone disease.There is mild medial joint space narrowing with subchondral sclerosis. A small spur is noted of the medial tibial plateau with a large spur of the lateral tibial plateau. There is mild spurring of the superior pole of the patella and the lateral patellar facet. There is mild narrowing of the lateral patellofemoral joint with subchondral sclerosis. There may be a small suprapatellar effusion. IMPRESSION: No fracture or dislocation. Degenerative changes as above with possible small joint effusion. <Electronically signed by Morgan Garsia > 04/18/21 [id number]
[2021-04-18 14:33] LABS: MAGNESIUM LEVEL 1.7 MG/DL (1.8-2.4); PERCENT SATURATION 20.9 % (13.2-45.0)
[2021-04-18 16:40] LABS: HEMOGLOBIN A1c 6.5 %
== END ==
LOC: M PLAIMG 09:56
PROVIDERS: ATTEND Family Medicine
DX: M25.562 Pain in left knee (principal)

== ENCOUNTER → 2021-07-07 | Outpatient (CLI) | payer MEDICARE, BC ==
--- NOTE | 2021-07-07 12:35 | REPMRS ---
Patient History The patient states she has not had a clinical breast exam in over a year. No known family history of cancer. Took hormonal contraceptives for 5 years. 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 [place] breast density is b. [facility] lifetime risk of breast cancer 4.7%. Patient states no breast complaints today. Patient has signed MRS History Sheet. Pfizer vaccine 12/22/20, 01/12/21. Digital Woman Screen Mammo: July 07, 2021 - Exam #: [id number] Bilateral CC and MLO view(s) were taken. Technologist: Mel Mitchell, Technologist Prior study comparison: June 01, 2020, bilateral digital woman screen mammo performed at [facility]. May 12, 2019, bilateral digital woman screen mammo performed at [facility]. FINDINGS: There are scattered fibroglandular densities. There has been no change in the appearance of the mammogram from the prior studies. There is a mild amount of residual fibroglandular tissue which is fairly symmetric. There is no interval development of dominant mass, architectural distortion, or clustered microcalcification suggestive of malignancy. Assessment: BI-RADS/ACR category 1 mammogram. Negative Mammogram. Recommendation Routine screening mammogram in 1 year (for women over age 40). This mammogram was interpreted with the aid of an FDA-approved computer-aided dectection system. Electronically Signed By: Morgan Garsia MD 07/07/21 [id number]
== END ==
LOC: M WHC 10:26
PROVIDERS: ATTEND Family Medicine
DX: Z12.31 Encounter for screening mammogram for malignant neoplasm of breast (principal)

== ENCOUNTER → 2021-09-01 | Outpatient (CLI) | payer MEDICARE, BC ==
[~2021-09-01] MED LIST changes: -LEVO500T3 PO; +LEVO500T4 PO; +LOSA25TA13 PO; -LOSA25TA14 PO
[2021-09-01 13:14] LABS: HEMATOCRIT 41.5 % (36.0-47.0); HEMOGLOBIN 13.2 g/dl (12.0-15.5); MEAN CORPUSCULAR HEMOGLOBIN 27.6 pg (27.0-33.0); MEAN CORPUSCULAR HGB CONC 31.8 g/dl (32.0-36.5); MEAN CORPUSCULAR VOLUME 86.6 fl (80.0-96.0); PLATELET COUNT, AUTOMATED 278 10^3/uL (150-450); RED BLOOD COUNT 4.79 10^6/uL (4.00-5.40); WHITE BLOOD COUNT 9.3 10^3/uL (4.0-10.0)
[2021-09-01 14:24] LABS: BLOOD UREA NITROGEN 12 MG/DL (7-18); CALCIUM LEVEL 9.1 MG/DL (8.8-10.2); CARBON DIOXIDE LEVEL 24 MEQ/L (21-32); CHLORIDE LEVEL 106 MEQ/L (98-107); CREATININE FOR GFR 0.97 MG/DL (0.55-1.30); GLOMERULAR FILTRATION RATE > 60.0 (>45); GLUCOSE, FASTING 202 MG/DL (70-100); MAGNESIUM LEVEL 1.8 MG/DL (1.8-2.4); POTASSIUM SERUM 3.7 MEQ/L (3.5-5.1); SODIUM LEVEL 140 MEQ/L (136-145); THYROID STIMULATING HORMONE 0.622 uIU/ML (0.358-3.740)
[2021-09-01 15:46] LABS: HEMOGLOBIN A1c 7.1 %
== END ==
LOC: M PLALAB 11:17
PROVIDERS: ATTEND Family Medicine
DX: R06.02 Shortness of breath (principal); E11.42 Type 2 diabetes mellitus with diabetic polyneuropathy; Z79.899 Other long term (current) drug therapy

== ENCOUNTER → 2021-09-26 | Outpatient (CLI) | payer MEDICARE, BC | LOC: M ADAMS 11:11 | PROVIDERS: ATTEND Nurse Practitioner Women's Health | DX: N20.0 Calculus of kidney (principal) ==

== ENCOUNTER → 2021-10-05 | Outpatient (REF) | payer MEDICARE, BC ==
[2021-10-05 17:56] LABS: APPEARANCE, URINE CLOUDY (CLEAR); BACTERIA, URINE AUTO NEGATIVE (NEGATIVE); BILIRUBIN, URINE AUTO NEGATIVE (NEGATIVE); BLOOD, URINE BLOOD 1+ (NEGATIVE); COLOR, URINE AMBER (YELLOW); GLUCOSE, URINE (UA) AUTO 1+ mg/dL (NEGATIVE); KETONE, URINE AUTO TRACE mg/dL (NEGATIVE); LEUKOCYTE ESTERASE, URINE AUTO NEGATIVE (NEGATIVE); MUCUS, URINE SMALL (NEGATIVE); NITRITE, URINE AUTO NEGATIVE (NEGATIVE); PROTEIN, URINE AUTO 2+ mg/dL (NEGATIVE); RBC, URINE AUTO 10 /HPF (0-3); SPECIFIC GRAVITY URINE AUTO 1.025 (1.002-1.035); SQUAMOUS EPITHELIAL CELL UR AU 1 /HPF (0-6); WBC, URINE AUTO 2 /HPF (0-3)
== END ==
LOC: M SMT 16:38
PROVIDERS: ATTEND Nurse Practitioner Women's Health
DX: Z87.442 Personal history of urinary calculi (principal); Z79.899 Other long term (current) drug therapy

== ENCOUNTER → 2021-10-13 | Outpatient (REF) | payer MEDICARE, BC ==
[2021-10-13 13:35] LABS: BLOOD UREA NITROGEN 11 MG/DL (7-18); CALCIUM LEVEL 8.6 MG/DL (8.8-10.2); CARBON DIOXIDE LEVEL 29 MEQ/L (21-32); CHLORIDE LEVEL 105 MEQ/L (98-107); CREATININE FOR GFR 0.98 MG/DL (0.55-1.30); GLOMERULAR FILTRATION RATE > 60.0 (>45); GLUCOSE, FASTING 319 MG/DL (70-100); POTASSIUM SERUM 3.9 MEQ/L (3.5-5.1); SODIUM LEVEL 140 MEQ/L (136-145)
== END ==
LOC: M SFHCADAM 12:28
PROVIDERS: ATTEND Nurse Practitioner Women's Health
DX: R31.0 Gross hematuria (principal)

== ENCOUNTER → 2021-10-18 | Outpatient (CLI) | payer MEDICARE, BC ==
[~2021-10-18] MED LIST changes: +ISOVUE-370 76% 100ML VIAL As Ordered ONE
== END ==
LOC: M RAD 12:24
PROVIDERS: ATTEND Nurse Practitioner Women's Health
DX: R31.0 Gross hematuria (principal)
CPT/HCPCS: 74178; Q9967

== ENCOUNTER → 2022-01-30 | Outpatient (REF) | payer MEDICARE, BC ==
[~2022-01-30] MED LIST changes: -ISOVUE-370 76% 100ML VIAL As Ordered ONE
[2022-01-30 13:47] LABS: ALBUMIN 3.3 GM/DL (3.2-5.2); BILIRUBIN,TOTAL 0.9 MG/DL (0.2-1.0); CHOLESTEROL RISK RATIO 2.569 (<5); CREATININE FOR GFR 1.01 MG/DL (0.55-1.30); GLOMERULAR FILTRATION RATE 58.7 (>45); TOTAL PROTEIN 6.4 GM/DL (6.4-8.2)
[2022-01-30 13:55] LABS: HEMOGLOBIN A1c 6.9 %
[2022-01-30 14:01] LABS: TOTAL 25(OH) VITAMIN D 62.9 NG/ML (30.0-100.0)
== END ==
LOC: M SFHCADAM 08:58
PROVIDERS: ATTEND Physician Assistant
DX: E11.42 Type 2 diabetes mellitus with diabetic polyneuropathy (principal); Z13.220 Encounter for screening for lipoid disorders; E55.9 Vitamin D deficiency, unspecified

== ENCOUNTER → 2022-05-11 | Outpatient (REF) | payer MEDICARE, BC ==
[~2022-05-11] MED LIST changes: +LEVO1TAB39 PO; -LEVO500T4 PO
== END ==
LOC: M SFHCWAGY 10:09
PROVIDERS: ATTEND Nurse Practitioner Family
DX: Z12.4 Encounter for screening for malignant neoplasm of cervix (principal); Z01.419 Encounter for gynecological examination (general) (routine) without abnormal findings; Z77.9 Other contact with and (suspected) exposures hazardous to health
CPT/HCPCS: 87624; G0123

== ENCOUNTER → 2022-06-18 | Outpatient (REF) | payer MEDICARE, BC ==
[2022-06-18 14:30] LABS: HEMOGLOBIN A1c 6.4 %
[2022-06-18 14:46] LABS: CALCIUM LEVEL 8.8 MG/DL (8.8-10.2); GLOMERULAR FILTRATION RATE 59.4 (>45); MAGNESIUM LEVEL 1.6 MG/DL (1.8-2.4); POTASSIUM SERUM 4.3 MEQ/L (3.5-5.1)
== END ==
LOC: M SFHCADAM 10:37
PROVIDERS: ATTEND Physician Assistant
DX: E11.42 Type 2 diabetes mellitus with diabetic polyneuropathy (principal); I10 Essential (primary) hypertension

== ENCOUNTER → 2022-07-17 | Outpatient (REF) | payer MEDICARE, BC | LOC: M SFHCADAM 13:20 | PROVIDERS: ATTEND Family Medicine | DX: R05.1 Acute cough (principal) ==

== ENCOUNTER → 2022-07-24 | Outpatient (CLI) | payer MEDICARE, BC | LOC: M WHC 14:34 | PROVIDERS: ATTEND Nurse Practitioner Family | DX: Z12.31 Encounter for screening mammogram for malignant neoplasm of breast (principal) ==

== ENCOUNTER → 2022-11-02 | Outpatient (REF) | payer MEDICARE, BC | LOC: M SFHCADAM 12:23 | PROVIDERS: ATTEND Physician Assistant | DX: R05.1 Acute cough (principal) ==

== ENCOUNTER → 2022-11-09 | Outpatient (CLI) | payer MEDICARE, BC | LOC: M ADAMS 10:08 | PROVIDERS: ATTEND Physician Assistant | DX: J20.9 Acute bronchitis, unspecified (principal) ==

== ENCOUNTER → 2022-12-17 | Outpatient (REF) | payer MEDICARE, BC ==
[2022-12-17 13:03] LABS: ALBUMIN 3.2 G/DL (3.2-5.2); ALKALINE PHOSPHATASE 61 U/L (46-116); ALT/SGPT 30 U/L (7.0-40); AST/SGOT 25 U/L (<34); BILIRUBIN,TOTAL 0.8 MG/DL (0.3-1.2); BLOOD UREA NITROGEN 15 MG/DL (9-23); CALCIUM LEVEL 8.6 MG/DL (8.3-10.6); CARBON DIOXIDE LEVEL 26 MMOL/L (20-31); CHLORIDE LEVEL 109 MMOL/L (98-107); CHOLESTEROL LEVEL 166 MG/DL (<200); CHOLESTEROL RISK RATIO 2.45 (<5); CREATININE FOR GFR 0.97 MG/DL (0.55-1.30); GLOMERULAR FILTRATION RATE > 60.0 (>45); GLUCOSE, FASTING 159 MG/DL (74-106); HDL CHOLESTEROL 67.6 MG/DL (>40); MAGNESIUM LEVEL 1.4 MG/DL (1.8-2.4); NON-HDL-C 98.4 MG/DL; POTASSIUM SERUM 4.7 MMOL/L (3.5-5.1); SODIUM LEVEL 140 MMOL/L (136-145); TRIGLYCERIDES LEVEL 242 MG/DL (<150)
[2022-12-17 13:04] LABS: FREE T4 1.15 NG/DL (0.89-1.76); THYROID STIMULATING HORMONE 0.412 uIU/ML (0.55-4.78); VITAMIN B12 LEVEL 228 PG/ML (211-911)
[2022-12-17 13:07] LABS: FOLATE > 24.0 NG/ML (>5.4)
[2022-12-17 13:23] LABS: HEMOGLOBIN A1c 7.5 % (4.0-6.0)
[2022-12-17 17:47] LABS: MAU/CREAT RATIO 2.3 MCG/MG (0.0-30.0)
== END ==
LOC: M SFHCADAM 08:19
PROVIDERS: ATTEND Physician Assistant
DX: F51.01 Primary insomnia (principal); E83.42 Hypomagnesemia; E11.42 Type 2 diabetes mellitus with diabetic polyneuropathy; I10 Essential (primary) hypertension

== ENCOUNTER → 2023-01-23 | Outpatient (CLI) | payer MEDICARE, BC ==
[~2023-01-23] MED LIST changes: -K-TA10TA2 PO; +POTA-165 PO
== END ==
LOC: M CARPUL 10:28
PROVIDERS: ATTEND Physician Assistant
DX: I51.9 Heart disease, unspecified (principal)

== ENCOUNTER → 2023-02-18 | Outpatient (REF) | payer MEDICARE, BC | LOC: M SFHCADAM 16:04 | PROVIDERS: ATTEND Family Medicine | DX: R05.1 Acute cough (principal) ==

== ENCOUNTER → 2023-02-19 | Outpatient (CLI) | payer MEDICARE, BC | LOC: M ADAMS 09:12 | PROVIDERS: ATTEND Family Medicine | DX: R05.1 Acute cough (principal) ==

== ENCOUNTER → 2023-02-19 | Outpatient (REF) | payer MEDICARE, BC ==
[2023-02-19 13:59] LABS: BASO % 0.6 % (0.0-1.0); EOS # 0.3 10^3/uL (0.0-0.5); EOS % 4.8 % (0.0-3.0); HEMOGLOBIN 13.9 g/dl (12.0-15.5); LYMPH # 2.6 10^3/uL (1.5-5.0); LYMPH % 36.6 % (24.0-44.0); MEAN CORPUSCULAR HEMOGLOBIN 30.5 pg (27.0-33.0); MEAN CORPUSCULAR HGB CONC 32.3 g/dl (32.0-36.5); MEAN CORPUSCULAR VOLUME 94.3 fl (80.0-96.0); MONO # 0.7 10^3/uL (0.0-0.8); MONO % 9.2 % (2.0-8.0); NEUTROPHILS # 3.5 10^3/uL (1.5-8.5); NEUTROPHILS % 48.5 % (36.0-66.0); PLATELET COUNT, AUTOMATED 222 10^3/uL (150-450); RED BLOOD COUNT 4.56 10^6/uL (4.00-5.40); WHITE BLOOD COUNT 7.1 10^3/uL (4.0-10.0)
== END ==
LOC: M SFHCADAM 09:10
PROVIDERS: ATTEND Family Medicine
DX: R05.1 Acute cough (principal)

== ENCOUNTER 2023-03-03 16:29 | Inpatient (IN) | payer MEDICARE, BC ==
[~2023-03-03] VITALS: Ht 167.6 cm; Wt 109.0 kg
[2023-03-03 17:43] LABS: BASO # 0.1 10^3/uL (0.0-0.2); BASO % 0.8 % (0.0-1.0); EOS # 0.2 10^3/uL (0.0-0.5); HEMATOCRIT 42.3 % (36.0-47.0); LYMPH # 3.1 10^3/uL (1.5-5.0); LYMPH % 33.5 % (24.0-44.0); MEAN CORPUSCULAR HEMOGLOBIN 30.9 pg (27.0-33.0); MEAN CORPUSCULAR HGB CONC 33.1 g/dl (32.0-36.5); MEAN CORPUSCULAR VOLUME 93.4 fl (80.0-96.0); MONO # 0.7 10^3/uL (0.0-0.8); MONO % 7.1 % (2.0-8.0); NEUTROPHILS # 5.2 10^3/uL (1.5-8.5); NEUTROPHILS % 56.1 % (36.0-66.0); PLATELET COUNT, AUTOMATED 302 10^3/uL (150-450); RED BLOOD COUNT 4.53 10^6/uL (4.00-5.40); WHITE BLOOD COUNT 9.3 10^3/uL (4.0-10.0)
[2023-03-03 17:55] LABS: INR 0.95; PROTHROMBIN TIME 12.9 SECONDS (12.5-14.5)
[2023-03-03 17:56] LABS: PARTIAL THROMBOPLASTIN TIME 23.4 SECONDS (24.8-34.2)
[2023-03-03 18:07] LABS: LIPASE 50 U/L (12-53)
[2023-03-03 18:10] LABS: ALBUMIN 3.6 G/DL (3.2-5.2); ALKALINE PHOSPHATASE 83 U/L (46-116); ALT/SGPT 20 U/L (7.0-40); AST/SGOT 10 U/L (<34); BILIRUBIN,DIRECT 0.1 MG/DL (<0.4); BILIRUBIN,TOTAL 0.4 MG/DL (0.3-1.2); BLOOD UREA NITROGEN 56 MG/DL (9-23); CARBON DIOXIDE LEVEL 18 MMOL/L (20-31); CHLORIDE LEVEL 106 MMOL/L (98-107); CK-MB VALUE MASS < 1.0 NG/ML (<3.6); CREATININE FOR GFR 2.35 MG/DL (0.55-1.30); GLOMERULAR FILTRATION RATE 22.1 (>45); GLUCOSE, FASTING 186 MG/DL (74-106); POTASSIUM SERUM 5.9 MMOL/L (3.5-5.1); SODIUM LEVEL 136 MMOL/L (136-145); TOTAL PROTEIN 6.3 G/DL (5.7-8.2)
[2023-03-03 18:12] LABS: FREE T4 1.05 NG/DL (0.89-1.76); THYROID STIMULATING HORMONE 0.234 uIU/ML (0.55-4.78)
[2023-03-03 18:13] LABS: CPK CREATINE PHOSPHOKINASE 54 U/L (34-145); MB/CK RELATIVE INDEX 1.85 (< OR =4)
[2023-03-03] MEDS ORDERED: NS 1,000 ML IV ONE (18:25)
[2023-03-03 18:51] LABS: CK-MB VALUE MASS 1.6 NG/ML (<3.6)
[2023-03-03 18:54] LABS: MB/CK RELATIVE INDEX 2.58 (< OR =4)
[2023-03-03] MEDS ORDERED: TRAZ-257 PO (20:36)
[2023-03-03] MEDS ORDERED: PREG75CA2 PO (20:36)
[2023-03-03] MEDS ORDERED: ERGO500029 PO (20:36)
[2023-03-03] MEDS ORDERED: DULA3PEN PO (20:36)
[2023-03-03] MEDS ORDERED: LISI40TA4 PO (20:36)
[2023-03-03] MEDS ORDERED: MAGN250T11 PO (20:37)
[2023-03-03] MEDS ORDERED: B-12100010 PO (20:37)
[2023-03-03] MEDS ORDERED: HOME MED LIST COMPLETE! XX SCH (20:40)
[2023-03-03] MEDS ORDERED: ALBUTEROL SULFATE 2.5MG/0.5ML INH NEB SOLN NEB PRN (21:00)
[2023-03-03] MEDS ORDERED: DEXTROSE 50% 50ML SYRINGE IV PRN (21:00)
[2023-03-03] MEDS ORDERED: SODIUM CHLORIDE 0.9% 1000ML IV SCH (21:00)
[2023-03-03] MEDS ORDERED: GLUCAGON INJ 1MG VIAL SC PRN (21:00)
[2023-03-03] MEDS ORDERED: ACETAMINOPHEN TAB 650MG DOSE (2X325MG) PO PRN (21:00)
[2023-03-03] MEDS ORDERED: GLUCOSE 4GM CHEW TABLET PO PRN (21:00)
[2023-03-03 21:28] LABS: RSV AMPLIFICATION NEGATIVE (NEGATIVE)
[2023-03-04] VITALS: BP 121/62; TEMP 97.5; O2SAT 97
[2023-03-04] MEDS: NS 1,000 ML IV SCH ×2 (01:00→08:52)
[2023-03-04 05:10] VITALS: BP 114/67; TEMP 97.9; O2SAT 94
[2023-03-04] MEDS: HEPARIN SOD (PORCINE) 5000UNITS/ML 1ML VIAL/SYRINGE SC SCH ×3 (06:06→21:22)
[2023-03-04 06:46] LABS: CALCIUM LEVEL 8.2 MG/DL (8.3-10.6); CREATININE FOR GFR 1.58 MG/DL (0.55-1.30); GLOMERULAR FILTRATION RATE 34.9 (>45); POTASSIUM SERUM 5.4 MMOL/L (3.5-5.1)
[2023-03-04] MEDS ORDERED: DEXTROSE 50% 50ML SYRINGE IV STA (07:53)
[2023-03-04] MEDS ORDERED: HumuLIN R (REGULAR) INSULIN (NovoLIN R) **100U/ML** PER UNIT IV STA (07:53)
[2023-03-04] MEDS: INSULIN LISPRO (NovoLOG) PER UNIT SC SCH ×3 (08:46→16:52)
[2023-03-04] MEDS: DULoxetine 20MG CAP (CYMBALTA) PO SCH (08:52)
[2023-03-04] MEDS: OMEPRAZOLE 20MG CAP PO SCH (08:52)
[2023-03-04 12:46] LABS: CALCIUM LEVEL 8.6 MG/DL (8.3-10.6); CREATININE FOR GFR 1.3 MG/DL (0.55-1.30); GLOMERULAR FILTRATION RATE 43.8 (>45); POTASSIUM SERUM 5.4 MMOL/L (3.5-5.1)
[2023-03-04 14:00] VITALS: BP 115/72; TEMP 97; O2SAT 93
[2023-03-04] MEDS ORDERED: SOD POLYSTYRENE SULFONATE SUSP 15GM 60ML UD PO ONE (14:00)
[2023-03-04 21:31] VITALS: BP 114/69; TEMP 97; O2SAT 96
[2023-03-05] MEDS ORDERED: RAMELTEON 8 MG TAB (ROZEREM) PO ONE (01:05)
[2023-03-05 05:32] VITALS: BP 119/64; TEMP 96.6; O2SAT 92
[2023-03-05] MEDS: HEPARIN SOD (PORCINE) 5000UNITS/ML 1ML VIAL/SYRINGE SC SCH (05:54)
[2023-03-05 06:00] LABS: BASO # 0.1 10^3/uL (0.0-0.2); BASO % 0.9 % (0.0-1.0); EOS # 0.2 10^3/uL (0.0-0.5); EOS % 3.1 % (0.0-3.0); HEMATOCRIT 35.5 % (36.0-47.0); LYMPH # 2.6 10^3/uL (1.5-5.0); LYMPH % 44.7 % (24.0-44.0); MEAN CORPUSCULAR HEMOGLOBIN 30.7 pg (27.0-33.0); MEAN CORPUSCULAR HGB CONC 32.7 g/dl (32.0-36.5); MEAN CORPUSCULAR VOLUME 93.9 fl (80.0-96.0); MONO # 0.5 10^3/uL (0.0-0.8); MONO % 8.1 % (2.0-8.0); NEUTROPHILS # 2.5 10^3/uL (1.5-8.5); NEUTROPHILS % 42.9 % (36.0-66.0); PLATELET COUNT, AUTOMATED 199 10^3/uL (150-450); RED BLOOD COUNT 3.78 10^6/uL (4.00-5.40); WHITE BLOOD COUNT 5.8 10^3/uL (4.0-10.0)
[2023-03-05 06:13] LABS: HEMOGLOBIN 11.6 g/dl (12.0-15.5)
[2023-03-05 06:31] LABS: CALCIUM LEVEL 8.4 MG/DL (8.3-10.6); CREATININE FOR GFR 1.14 MG/DL (0.55-1.30); GLOMERULAR FILTRATION RATE 50.9 (>45); MAGNESIUM LEVEL 1.4 MG/DL (1.8-2.4); POTASSIUM SERUM 5.2 MMOL/L (3.5-5.1)
[2023-03-05] MEDS: INSULIN LISPRO (NovoLOG) PER UNIT SC SCH ×2 (07:30→12:00)
[2023-03-05] MEDS ORDERED: D5W 1,000 ML IV SCH (07:50)
[2023-03-05] MEDS: OMEPRAZOLE 20MG CAP PO SCH (08:28)
[2023-03-05] MEDS: DULoxetine 20MG CAP (CYMBALTA) PO SCH (08:41)
[2023-03-05] MEDS ORDERED: MAGNESIUM OXIDE 400MG TAB (MAG-OX) PO SCH (09:00)
[2023-03-05] MEDS ORDERED: PATIROMER SORBITEX CALCIUM 8.4 GM POWDER PACKET (VELTASSA) PO ONE (09:00)
[2023-03-05] MEDS: PATIROMER SORBITEX CALCIUM 8.4 GM POWDER PACKET (VELTASSA) PO ONE ×2 (12:19→12:55)
[2023-03-05 12:45] LABS: CALCIUM LEVEL 8.5 MG/DL (8.3-10.6); CREATININE FOR GFR 1.03 MG/DL (0.55-1.30); GLOMERULAR FILTRATION RATE 57.3 (>45); POTASSIUM SERUM 4.9 MMOL/L (3.5-5.1)
[2023-03-05] MEDS ORDERED: MAGN250T11 PO (13:05)
[2023-03-05] MEDS ORDERED: MAGN400T2 PO (13:05)
== END 2023-03-05 14:03 | disposition home or self-care (01) | DRG 312 ==
LOC: M ED 16:29 → M ED INP 20:59 → ENRESERV 22:50 → M MSPAV 23:58
PROVIDERS: ADMIT Internal Medicine; ATTEND Student in an Organized Health Care Education/Training Program
DX: I95.1 Orthostatic hypotension (principal); N17.9 Acute kidney failure, unspecified; E87.0 Hyperosmolality and hypernatremia; E11.65 Type 2 diabetes mellitus with hyperglycemia; F32.A Depression, unspecified; E83.42 Hypomagnesemia; E87.5 Hyperkalemia; E86.0 Dehydration; E86.1 Hypovolemia; R06.02 Shortness of breath; N20.0 Calculus of kidney; E11.42 Type 2 diabetes mellitus with diabetic polyneuropathy; F41.9 Anxiety disorder, unspecified; E66.9 Obesity, unspecified; R07.89 Other chest pain; Z93.2 Ileostomy status; Z96.641 Presence of right artificial hip joint; Z79.84 Long term (current) use of oral hypoglycemic drugs; Z79.899 Other long term (current) drug therapy; Z88.5 Allergy status to narcotic agent; Z88.8 Allergy status to other drugs, medicaments and biological substances; Z86.16 Personal history of COVID-19; Z90.49 Acquired absence of other specified parts of digestive tract; Z68.38 Body mass index [BMI] 38.0-38.9, adult

== ENCOUNTER → 2023-03-20 | Outpatient (CLI) | payer MEDICARE, BC ==
[~2023-03-20] MED LIST changes: +B-12100010 PO; +DULA3PEN PO; +ERGO500029 PO; +LISI40TA4 PO; +MAGN250T11 PO; +PREG75CA2 PO
[2023-03-20 13:52] LABS: BASO # 0.1 10^3/uL (0.0-0.2); BASO % 0.8 % (0.0-1.0); EOS # 0.4 10^3/uL (0.0-0.5); EOS % 3.6 % (0.0-3.0); HEMATOCRIT 37.6 % (36.0-47.0); HEMOGLOBIN 12.3 g/dl (12.0-15.5); MEAN CORPUSCULAR HEMOGLOBIN 30.4 pg (27.0-33.0); MEAN CORPUSCULAR HGB CONC 32.7 g/dl (32.0-36.5); MEAN CORPUSCULAR VOLUME 92.8 fl (80.0-96.0); MONO # 0.8 10^3/uL (0.0-0.8); MONO % 7.1 % (2.0-8.0); NEUTROPHILS # 6.4 10^3/uL (1.5-8.5); NEUTROPHILS % 59.9 % (36.0-66.0); PLATELET COUNT, AUTOMATED 242 10^3/uL (150-450); RED BLOOD COUNT 4.05 10^6/uL (4.00-5.40); WHITE BLOOD COUNT 10.6 10^3/uL (4.0-10.0)
[2023-03-20 14:10] LABS: ERYTHROCYTE SEDIMENTATION RATE 13 mm/hr (0-30)
[2023-03-20 14:17] LABS: URIC ACID 7.4 MG/DL (3.1-7.8)
[2023-03-20 14:18] LABS: RHEUMATOID FACTOR QUANT < 3.5 IU/ML (<14)
== END ==
LOC: M PLALAB 11:45
PROVIDERS: ATTEND Student in an Organized Health Care Education/Training Program
DX: M17.0 Bilateral primary osteoarthritis of knee (principal)

== ENCOUNTER → 2023-03-23 | Outpatient (CLI) | payer MEDICARE, BC | LOC: M RAD 10:18 | PROVIDERS: ATTEND Physician Assistant Medical | DX: R55 Syncope and collapse (principal) ==

== ENCOUNTER → 2023-04-02 | Outpatient (REF) | payer MEDICARE, BC ==
[~2023-04-02] MED LIST changes: -DULA3PEN PO; +DULA3PEN SC
[2023-04-02 15:46] LABS: HEMOGLOBIN A1c 5.7 % (4.0-6.0)
[2023-04-02 16:09] LABS: ALBUMIN 3.5 G/DL (3.2-5.2); BILIRUBIN,TOTAL 0.8 MG/DL (0.3-1.2); CALCIUM LEVEL 9.1 MG/DL (8.3-10.6); CREATININE FOR GFR 1.18 MG/DL (0.55-1.30); GLOMERULAR FILTRATION RATE 48.9 (>45); POTASSIUM SERUM 4.8 MMOL/L (3.5-5.1); TOTAL PROTEIN 6.3 G/DL (5.7-8.2)
== END ==
LOC: M SFHCADAM 08:37
PROVIDERS: ATTEND Physician Assistant
DX: Z00.00 Encounter for general adult medical examination without abnormal findings (principal); Z79.899 Other long term (current) drug therapy

== ENCOUNTER → 2023-04-11 | Outpatient (CLI) | payer MEDICARE, BC ==
[~2023-04-11] MED LIST changes: -PREG75CA2 PO; +PREG75CA3 PO; +PROHANCE 279.3MG/ML 15ML VIAL As Ordered ONE
== END ==
LOC: M RAD 16:07
PROVIDERS: ATTEND Physician Assistant
DX: I63.89 Other cerebral infarction (principal)
CPT/HCPCS: 70544; 70549; A9576

== ENCOUNTER → 2023-06-06 | Outpatient (CLI) | payer MEDICARE, BC ==
[~2023-06-06] MED LIST changes: -PROHANCE 279.3MG/ML 15ML VIAL As Ordered ONE
== END ==
LOC: M WHC 09:57
PROVIDERS: ATTEND Nurse Practitioner Family
DX: Z53.9 Procedure and treatment not carried out, unspecified reason (principal)

== ENCOUNTER → 2023-06-06 | Outpatient (REF) | payer MEDICARE, BC | LOC: M SFHCWAGY 13:14 | PROVIDERS: ATTEND Nurse Practitioner Family | DX: Z12.4 Encounter for screening for malignant neoplasm of cervix (principal) | CPT/HCPCS: 87624; G0123 ==

== ENCOUNTER → 2023-08-02 | Outpatient (CLI) | payer MEDICARE, BC | LOC: M WHC 10:48 | PROVIDERS: ATTEND Nurse Practitioner Family | DX: Z12.31 Encounter for screening mammogram for malignant neoplasm of breast (principal) ==

== ENCOUNTER → 2023-09-26 | Outpatient (REF) | payer MEDICARE, BC ==
[2023-09-26 15:51] LABS: HEMATOCRIT 45.2 % (36.0-47.0); HEMOGLOBIN 14.5 g/dl (12.0-15.5); MEAN CORPUSCULAR HEMOGLOBIN 30.3 pg (27.0-33.0); MEAN CORPUSCULAR HGB CONC 32.1 g/dl (32.0-36.5); MEAN CORPUSCULAR VOLUME 94.6 fl (80.0-96.0); PLATELET COUNT, AUTOMATED 332 10^3/uL (150-450); RED BLOOD COUNT 4.78 10^6/uL (4.00-5.40); WHITE BLOOD COUNT 17.6 10^3/uL (4.0-10.0)
[2023-09-26 16:04] LABS: ALBUMIN 3.5 G/DL (3.2-5.2); CALCIUM LEVEL 9.7 MG/DL (8.3-10.6); CHOLESTEROL RISK RATIO 2.04 (<5); CREATININE FOR GFR 1.41 MG/DL (0.55-1.30); FREE T4 1.12 NG/DL (0.89-1.76); GLOMERULAR FILTRATION RATE 39.8 (>45); HDL CHOLESTEROL 64.2 MG/DL (>40); LDL CHOLESTEROL 27.2 MG/DL (<100); MAGNESIUM LEVEL 1.5 MG/DL (1.8-2.4); NON-HDL-C 66.8 MG/DL; THYROID STIMULATING HORMONE 0.64 uIU/ML (0.55-4.78); TOTAL PROTEIN 6.4 G/DL (5.7-8.2)
[2023-09-26 16:09] LABS: FOLATE 11.4 NG/ML (>5.4)
== END ==
LOC: M SFHCADAM 09:23
PROVIDERS: ATTEND Physician Assistant
DX: I10 Essential (primary) hypertension (principal); E11.42 Type 2 diabetes mellitus with diabetic polyneuropathy; E83.42 Hypomagnesemia

== ENCOUNTER → 2023-10-02 | Outpatient (REF) | payer MEDICARE, BC ==
[2023-10-02 13:38] LABS: BASO # 0.1 10^3/uL (0.0-0.2); BASO % 0.7 % (0.0-1.0); EOS # 0.4 10^3/uL (0.0-0.5); EOS % 3.9 % (0.0-3.0); HEMATOCRIT 38.7 % (36.0-47.0); HEMOGLOBIN 12.9 g/dl (12.0-15.5); LYMPH # 2.9 10^3/uL (1.5-5.0); LYMPH % 29.5 % (24.0-44.0); MEAN CORPUSCULAR HEMOGLOBIN 30.9 pg (27.0-33.0); MEAN CORPUSCULAR HGB CONC 33.3 g/dl (32.0-36.5); MEAN CORPUSCULAR VOLUME 92.6 fl (80.0-96.0); MONO # 0.5 10^3/uL (0.0-0.8); NEUTROPHILS # 5.9 10^3/uL (1.5-8.5); NEUTROPHILS % 60.4 % (36.0-66.0); PLATELET COUNT, AUTOMATED 266 10^3/uL (150-450); RED BLOOD COUNT 4.18 10^6/uL (4.00-5.40); WHITE BLOOD COUNT 9.8 10^3/uL (4.0-10.0)
[2023-10-02 14:06] LABS: ALBUMIN 3.1 G/DL (3.2-5.2); BILIRUBIN,TOTAL 0.5 MG/DL (0.3-1.2); CALCIUM LEVEL 8.4 MG/DL (8.3-10.6); CREATININE FOR GFR 1.16 MG/DL (0.55-1.30); GLOMERULAR FILTRATION RATE 49.9 (>45); MAGNESIUM LEVEL 1.3 MG/DL (1.8-2.4); POTASSIUM SERUM 4.9 MMOL/L (3.5-5.1); TOTAL PROTEIN 5.8 G/DL (5.7-8.2)
[2023-10-02 14:41] LABS: CREATININE, URINE 329.3 MG/DL; MAU/CREAT RATIO 17.9 MCG/MG (0.0-30.0)
== END ==
LOC: M SFHCADAM 10:01
PROVIDERS: ATTEND Physician Assistant
DX: F51.01 Primary insomnia (principal); G62.9 Polyneuropathy, unspecified; E11.42 Type 2 diabetes mellitus with diabetic polyneuropathy; D72.829 Elevated white blood cell count, unspecified; I10 Essential (primary) hypertension; E83.42 Hypomagnesemia

== ENCOUNTER → 2023-10-29 | Outpatient (REF) | payer MEDICARE, BC | LOC: M SFHCADAM 10:14 | PROVIDERS: ATTEND Physician Assistant | DX: E83.42 Hypomagnesemia (principal); E11.42 Type 2 diabetes mellitus with diabetic polyneuropathy; N18.31 Chronic kidney disease, stage 3a ==

== ENCOUNTER → 2023-11-25 | Outpatient (REF) | payer MEDICARE, BC ==
[2023-11-25 13:45] LABS: CALCIUM LEVEL 8.8 MG/DL (8.3-10.6); CREATININE FOR GFR 1.1 MG/DL (0.55-1.30); GLOMERULAR FILTRATION RATE 53.1 (>45); MAGNESIUM LEVEL 1.8 MG/DL (1.8-2.4); POTASSIUM SERUM 4.2 MMOL/L (3.5-5.1)
[2023-11-25 14:34] LABS: HEMOGLOBIN A1c 6.6 % (4.0-6.0)
== END ==
LOC: M SFHCADAM 09:34
PROVIDERS: ATTEND Physician Assistant
DX: E83.42 Hypomagnesemia (principal); E11.42 Type 2 diabetes mellitus with diabetic polyneuropathy; N18.31 Chronic kidney disease, stage 3a

== ENCOUNTER → 2023-11-28 | Outpatient (REF) | payer MEDICARE, BC | LOC: M SFHCADAM 18:37 | PROVIDERS: ATTEND Physician Assistant | DX: E11.42 Type 2 diabetes mellitus with diabetic polyneuropathy (principal) ==

== ENCOUNTER 2023-12-15 15:25 | Observation (INO) | payer BC, MEDICARE ==
[~2023-12-15] VITALS: Ht 170.2 cm; Wt 108.0 kg
[2023-12-15 16:09] LABS: BASO # 0.1 10^3/uL (0.0-0.2); BASO % 0.6 % (0.0-1.0); EOS # 0.3 10^3/uL (0.0-0.5); EOS % 1.7 % (0.0-3.0); HEMATOCRIT 44.3 % (36.0-47.0); LYMPH # 3.4 10^3/uL (1.5-5.0); LYMPH % 22.8 % (24.0-44.0); MEAN CORPUSCULAR HEMOGLOBIN 30.6 pg (27.0-33.0); MEAN CORPUSCULAR HGB CONC 33.9 g/dl (32.0-36.5); MEAN CORPUSCULAR VOLUME 90.4 fl (80.0-96.0); MONO # 0.9 10^3/uL (0.0-0.8); MONO % 6.3 % (2.0-8.0); NEUTROPHILS # 10.2 10^3/uL (1.5-8.5); NEUTROPHILS % 68.3 % (36.0-66.0); PLATELET COUNT, AUTOMATED 315 10^3/uL (150-450); WHITE BLOOD COUNT 14.9 10^3/uL (4.0-10.0)
[2023-12-15 16:35] LABS: CALCIUM LEVEL 9.1 MG/DL (8.3-10.6); CREATININE FOR GFR 1.02 MG/DL (0.55-1.30); GLOMERULAR FILTRATION RATE 57.7 (>45); POTASSIUM SERUM 4.1 MMOL/L (3.5-5.1)
[2023-12-15] MEDS: ONDANSETRON 4MG 2ML VIAL IV ONE (17:17)
[2023-12-15] MEDS: NS 1,000 ML IV ONE ×2 (17:17→18:30)
[2023-12-15] MEDS: KETOROLAC 30 MG/ML 1ML VIAL IV ONE (17:18)
[2023-12-15] MEDS ORDERED: fentaNYL 100 MCG/2 ML INJECTION IV PRN (19:30)
[2023-12-15] MEDS ORDERED: NORCO, ANEXSIA 5/325MG TABLET (HYDROcodone/ACETAMINOPHEN) PO PRN (19:30)
[2023-12-15] MEDS ORDERED: ONDANSETRON 4MG 2ML VIAL IV PRN (19:30)
[2023-12-15] MEDS ORDERED: propofoL 200 MG/20 ML VIAL As Ordered ONE (19:42)
[2023-12-15] MEDS ORDERED: LIDOCAINE 2% 100MG/5ML SDV (FOR ANES.) As Ordered ONE (19:42)
[2023-12-15] MEDS ORDERED: MIDAZOLAM INJ 2MG/2ML VIAL As Ordered ONE (19:43)
[2023-12-15] MEDS ORDERED: fentaNYL 100 MCG/2 ML INJECTION As Ordered ONE (19:43)
[2023-12-15] MEDS ORDERED: MAGN400T35 PO (19:44)
[2023-12-15] MEDS ORDERED: TRAZ1TAB14 PO (19:44)
[2023-12-15] MEDS ORDERED: JARD1TAB PO (19:46)
[2023-12-15] MEDS ORDERED: LYRI75CA PO (19:46)
[2023-12-15] MEDS ORDERED: ATOR40TA75 PO (19:46)
[2023-12-15] MEDS ORDERED: ASPI81TA26 PO (19:47)
[2023-12-15] MEDS ORDERED: HOME MED LIST COMPLETE! XX SCH ×2 (19:50→20:00)
[2023-12-15] MEDS: ceFAZolin 2 GM/D5W 50 ML IV BAG As Ordered ONE (20:00)
[2023-12-15] MEDS ORDERED: MOM 30ML SUSPENSION UDC PO PRN (20:10)
[2023-12-15] MEDS ORDERED: MAALOX 30 ML SUSP *UDC PO PRN (20:10)
[2023-12-15] MEDS ORDERED: DEXTROSE 50% 50ML SYRINGE IV PRN (20:55)
[2023-12-15] MEDS ORDERED: GLUCOSE 4 GM CHEW PO PRN (20:55)
[2023-12-15] MEDS ORDERED: GLUCAGON INJ 1MG VIAL SC PRN (20:55)
[2023-12-15] MEDS: INSULIN LISPRO (NovoLOG) PER UNIT SC SCH (21:00)
[2023-12-15] MEDS: DOCUSATE SODIUM 100MG CAPSULE PO SCH (21:00)
[2023-12-15 21:25] LABS: LIPASE 24 U/L (12-53)
[2023-12-15 21:44] LABS: ALBUMIN 2.8 G/DL (3.2-5.2); ALKALINE PHOSPHATASE 72 U/L (46-116); ALT/SGPT 19 U/L (7.0-40); AST/SGOT 15 U/L (<34); BILIRUBIN,TOTAL 0.7 MG/DL (0.3-1.2); BLOOD UREA NITROGEN 13 MG/DL (9-23); CALCIUM LEVEL 7.9 MG/DL (8.3-10.6); CARBON DIOXIDE LEVEL 23 MMOL/L (20-31); CHLORIDE LEVEL 109 MMOL/L (98-107); CREATININE FOR GFR 0.98 MG/DL (0.55-1.30); GLOMERULAR FILTRATION RATE > 60.0 (>45); GLUCOSE, FASTING 137 MG/DL (74-106); SODIUM LEVEL 143 MMOL/L (136-145); TOTAL PROTEIN 5.3 G/DL (5.7-8.2)
[2023-12-15] MEDS: MAG SULF 1GM/100ML (MAG RUN) 1 GM in IV 1 EA IV SCH (22:29)
[2023-12-15 23:00] VITALS: BP 137/88; TEMP 97.9; O2SAT 92
[2023-12-15] MEDS: traZODone 50 MG TAB PO SCH (23:22)
[2023-12-16 06:00] VITALS: BP 137/89; TEMP 97.7; O2SAT 93
[2023-12-16 08:17] LABS: HEMATOCRIT 37.5 % (36.0-47.0); MEAN CORPUSCULAR HEMOGLOBIN 30.4 pg (27.0-33.0); MEAN CORPUSCULAR HGB CONC 33.1 g/dl (32.0-36.5); MEAN CORPUSCULAR VOLUME 91.9 fl (80.0-96.0); PLATELET COUNT, AUTOMATED 230 10^3/uL (150-450); RED BLOOD COUNT 4.08 10^6/uL (4.00-5.40); WHITE BLOOD COUNT 10.8 10^3/uL (4.0-10.0)
[2023-12-16 08:18] LABS: HEMOGLOBIN 12.4 g/dl (12.0-15.5)
[2023-12-16 08:41] VITALS: BP 157/106
[2023-12-16] MEDS: INSULIN LISPRO (NovoLOG) PER UNIT SC SCH (08:42)
[2023-12-16] MEDS: HEPARIN SOD (PORCINE) 5000UNITS/ML 1ML VIAL/SYRINGE SC SCH (08:43)
[2023-12-16] MEDS: CYANOCOBALAMIN 500 MCG TAB PO SCH (08:43)
[2023-12-16] MEDS: MAGNESIUM OXIDE 400MG TAB (MAG-OX) PO SCH (08:43)
[2023-12-16] MEDS: ATORVASTATIN 20 MG TAB PO SCH (08:43)
[2023-12-16] MEDS: OMEPRAZOLE 20MG CAP PO SCH (08:44)
[2023-12-16] MEDS: cefTRIAXone SOD 1 GM in D5W MINI-BAG PLUS 50 ML IV SCH (08:44)
[2023-12-16] MEDS: ASPIRIN 81MG ENTERIC TABLET PO SCH (08:44)
[2023-12-16] MEDS: PREGABALIN 75 MG CAP(LYRICA) PO SCH (08:44)
[2023-12-16 08:45] LABS: ALBUMIN 2.8 G/DL (3.2-5.2); ALKALINE PHOSPHATASE 72 U/L (46-116); ALT/SGPT 17 U/L (7.0-40); AST/SGOT 18 U/L (<34); BILIRUBIN,TOTAL 0.8 MG/DL (0.3-1.2); BLOOD UREA NITROGEN 11 MG/DL (9-23); CALCIUM LEVEL 8.4 MG/DL (8.3-10.6); CARBON DIOXIDE LEVEL 26 MMOL/L (20-31); CHLORIDE LEVEL 107 MMOL/L (98-107); CREATININE FOR GFR 0.97 MG/DL (0.55-1.30); GLOMERULAR FILTRATION RATE > 60.0 (>45); GLUCOSE, FASTING 133 MG/DL (74-106); POTASSIUM SERUM 3.9 MMOL/L (3.5-5.1); SODIUM LEVEL 140 MMOL/L (136-145); TOTAL PROTEIN 4.3 G/DL (5.7-8.2)
[2023-12-16] MEDS: ACETAMINOPHEN TAB 650MG DOSE (2X325MG) PO PRN (11:13)
[2023-12-16 13:02] VITALS: BP 157/106
[2023-12-16] MEDS ORDERED: CIPR-249 PO (13:30)
[2023-12-16 14:00] VITALS: BP 125/84; TEMP 97.7; O2SAT 94
== END 2023-12-16 15:15 | disposition home or self-care (01) ==
LOC: M ED 15:25 → M ED INP 15:26 → M ED 19:50 → M MS5PR 21:00
PROVIDERS: ADMIT Family Medicine; ATTEND Hospitalist
DX: N13.1 Hydronephrosis with ureteral stricture, not elsewhere classified (principal); I10 Essential (primary) hypertension; E11.9 Type 2 diabetes mellitus without complications; K51.90 Ulcerative colitis, unspecified, without complications; Z93.2 Ileostomy status; G47.33 Obstructive sleep apnea (adult) (pediatric); E66.9 Obesity, unspecified; Z86.73 Personal history of transient ischemic attack (TIA), and cerebral infarction without residual deficits; K52.9 Noninfective gastroenteritis and colitis, unspecified; F41.9 Anxiety disorder, unspecified; F32.A Depression, unspecified; Z86.14 Personal history of Methicillin resistant Staphylococcus aureus infection; K21.9 Gastro-esophageal reflux disease without esophagitis; M10.9 Gout, unspecified; Z87.442 Personal history of urinary calculi; Z90.49 Acquired absence of other specified parts of digestive tract; Z90.89 Acquired absence of other organs; Z90.711 Acquired absence of uterus with remaining cervical stump; Z96.641 Presence of right artificial hip joint; Z98.41 Cataract extraction status, right eye; Z98.42 Cataract extraction status, left eye; Z88.8 Allergy status to other drugs, medicaments and biological substances; Z88.5 Allergy status to narcotic agent; Z79.899 Other long term (current) drug therapy; Z79.82 Long term (current) use of aspirin; Z79.84 Long term (current) use of oral hypoglycemic drugs; Z83.3 Family history of diabetes mellitus; Z82.49 Family history of ischemic heart disease and other diseases of the circulatory system; Z82.3 Family history of stroke; Z80.49 Family history of malignant neoplasm of other genital organs; Z83.6 Family history of other diseases of the respiratory system; Z84.1 Family history of disorders of kidney and ureter; Z80.8 Family history of malignant neoplasm of other organs or systems
CPT/HCPCS: 36415; 52332; 74176; 76000; 80048; 80053; 81001; 83690; 83735; 85025; 85027; 87040; 87086; 96372; 96374; 96375; 99284; C1769; C2617; J0690; J0696; J1815; J1885; J2250; J2405; J3010; J3475

== ENCOUNTER → 2023-12-24 | Outpatient (REF) | payer MEDICARE, BC ==
[~2023-12-24] MED LIST changes: +ASPI81TA26 PO; +ATOR40TA75 PO; +CIPR-249 PO; +JARD1TAB PO; +LYRI75CA PO; +MAGN400T35 PO; +TRAZ1TAB14 PO
[2023-12-24 18:16] LABS: CALCIUM LEVEL 8.8 MG/DL (8.3-10.6); CREATININE FOR GFR 1.09 MG/DL (0.55-1.30); GLOMERULAR FILTRATION RATE 53.5 (>45); MAGNESIUM LEVEL 1.6 MG/DL (1.8-2.4); POTASSIUM SERUM 4.4 MMOL/L (3.5-5.1)
== END ==
LOC: M SFHCADAM 13:49
PROVIDERS: ATTEND Physician Assistant
DX: E83.42 Hypomagnesemia (principal)

== ENCOUNTER → 2024-01-01 | Outpatient (CLI) | payer MEDICARE, BC | LOC: M ADAMS 11:30 | PROVIDERS: ATTEND Nurse Practitioner Family | DX: Z01.818 Encounter for other preprocedural examination (principal) ==

== ENCOUNTER → 2024-01-10 | Outpatient (REF) | payer MEDICARE, BC ==
[2024-01-10 13:49] LABS: APPEARANCE, URINE TURBID (CLEAR); BACTERIA, URINE AUTO NEGATIVE (NEGATIVE); BILIRUBIN, URINE AUTO 1+ (NEGATIVE); BLOOD, URINE BLOOD 3+ (NEGATIVE); COLOR, URINE AMBER (YELLOW); GLUCOSE, URINE (UA) AUTO NEGATIVE (NEGATIVE); KETONE, URINE AUTO NEGATIVE (NEGATIVE); LEUKOCYTE ESTERASE, URINE AUTO 2+ (NEGATIVE); MUCUS, URINE SMALL (NEGATIVE); NITRITE, URINE AUTO NEGATIVE (NEGATIVE); PROTEIN, URINE AUTO 2+ mg/dL (NEGATIVE); RBC, URINE AUTO 120 /HPF (0-3); SPECIFIC GRAVITY URINE AUTO 1.025 (1.002-1.035); SQUAMOUS EPITHELIAL CELL UR AU 1 /HPF (0-6); WBC, URINE AUTO 16 /HPF (0-3)
== END ==
LOC: M SMT 12:44
PROVIDERS: ATTEND Nurse Practitioner Family
DX: Z01.818 Encounter for other preprocedural examination (principal); Z79.899 Other long term (current) drug therapy

== ENCOUNTER → 2024-01-17 | Outpatient (REF) | payer MEDICARE, BC ==
[2024-01-17 14:09] LABS: APPEARANCE, URINE HAZY (CLEAR); BACTERIA, URINE AUTO 1+ (NEGATIVE); BILIRUBIN, URINE AUTO NEGATIVE (NEGATIVE); BLOOD, URINE BLOOD 3+ (NEGATIVE); COLOR, URINE YELLOW (YELLOW); GLUCOSE, URINE (UA) AUTO NEGATIVE (NEGATIVE); KETONE, URINE AUTO NEGATIVE (NEGATIVE); LEUKOCYTE ESTERASE, URINE AUTO 1+ (NEGATIVE); MUCUS, URINE SMALL (NEGATIVE); NITRITE, URINE AUTO NEGATIVE (NEGATIVE); PROTEIN, URINE AUTO 2+ mg/dL (NEGATIVE); RBC, URINE AUTO TNTC /HPF (0-3); SPECIFIC GRAVITY URINE AUTO 1.018 (1.002-1.035); SQUAMOUS EPITHELIAL CELL UR AU 1 /HPF (0-6); UROBILINOGEN, URINE AUTO 0.2 mg/dL (0.0-2.0); WBC, URINE AUTO 13 /HPF (0-3)
== END ==
LOC: M SMT 12:25
PROVIDERS: ATTEND Urology
DX: Z01.818 Encounter for other preprocedural examination (principal); Z79.899 Other long term (current) drug therapy

== ENCOUNTER 2024-01-20 08:43 | Day surgery (SDC) | payer MEDICARE, BC ==
[~2024-01-20] VITALS: Ht 170.2 cm; Wt 105.7 kg
[2024-01-20] MEDS ORDERED: LR 1,000 ML IV SCH ×2 (08:55→11:10)
[2024-01-20] MEDS ORDERED: ONDANSETRON 4MG 2ML VIAL As Ordered ONE (09:29)
[2024-01-20] MEDS ORDERED: fentaNYL 100 MCG/2 ML INJECTION As Ordered ONE (09:29)
[2024-01-20] MEDS ORDERED: propofoL 200 MG/20 ML VIAL As Ordered ONE (09:29)
[2024-01-20] MEDS ORDERED: LIDOCAINE 2% 100MG/5ML SDV (FOR ANES.) As Ordered ONE (09:29)
[2024-01-20] MEDS: ceFAZolin SOD 2 GM in IV 1 EA IV ONE (10:15)
[2024-01-20] MEDS ORDERED: KETOROLAC 60MG 2ML VIAL As Ordered ONE (10:38)
[2024-01-20] MEDS: ISOVUE-300 61% 100ML VIAL As Ordered ONE (10:42)
[2024-01-20] MEDS ORDERED: ONDANSETRON 4MG 2ML VIAL IV PRN (11:10)
[2024-01-20] MEDS ORDERED: PERCOCET 5MG/325MG TAB PO PRN (12:10)
[2024-01-20 12:32] VITALS: BP 164/79; TEMP 97.6; O2SAT 98
== END 2024-01-20 12:32 | disposition home or self-care (01) ==
LOC: M SDC 08:43
PROVIDERS: ATTEND Urology
DX: N20.2 Calculus of kidney with calculus of ureter (principal); E11.9 Type 2 diabetes mellitus without complications; G47.30 Sleep apnea, unspecified; Z88.5 Allergy status to narcotic agent; Z79.899 Other long term (current) drug therapy; Z79.84 Long term (current) use of oral hypoglycemic drugs; Z79.85 Long-term (current) use of injectable non-insulin antidiabetic drugs
CPT/HCPCS: 52356; 76000; 82365; C1769; C2617; J0690; J1885; J2405; J3010; Q9967

== ENCOUNTER → 2024-04-17 | Outpatient (REF) | payer MEDICARE, BC | LOC: M SFHCADAM 11:21 | DX: J20.9 Acute bronchitis, unspecified (principal) ==

== ENCOUNTER → 2024-04-17 | Outpatient (CLI) | payer MEDICARE, BC | LOC: M ADAMS 11:26 | DX: J20.9 Acute bronchitis, unspecified (principal) ==

== ENCOUNTER → 2024-04-28 | Outpatient (REF) | payer MEDICARE, BC ==
[2024-04-28 13:29] LABS: BLOOD UREA NITROGEN 17 MG/DL (9-23); CALCIUM LEVEL 8.6 MG/DL (8.3-10.6); CARBON DIOXIDE LEVEL 24 MMOL/L (20-31); CHLORIDE LEVEL 110 MMOL/L (98-107); CREATININE FOR GFR 0.98 MG/DL (0.55-1.30); GLOMERULAR FILTRATION RATE > 60.0 (>45); GLUCOSE, FASTING 135 MG/DL (74-106); POTASSIUM SERUM 4.4 MMOL/L (3.5-5.1); SODIUM LEVEL 140 MMOL/L (136-145)
[2024-04-28 13:38] LABS: HEMOGLOBIN A1c 6.7 % (4.0-6.0)
== END ==
LOC: M SFHCADAM 09:40
PROVIDERS: ATTEND Physician Assistant
DX: E11.42 Type 2 diabetes mellitus with diabetic polyneuropathy (principal)

== ENCOUNTER → 2024-06-15 | Outpatient (CLI) | payer MEDICARE, BC ==
[2024-06-15 09:17] LABS: HEMOGLOBIN 14.2 g/dl (12.0-15.5); MEAN CORPUSCULAR HEMOGLOBIN 29.1 pg (27.0-33.0); MEAN CORPUSCULAR HGB CONC 32.3 g/dl (32.0-36.5); MEAN CORPUSCULAR VOLUME 90.2 fl (80.0-96.0); PLATELET COUNT, AUTOMATED 282 10^3/uL (150-450); RED BLOOD COUNT 4.88 10^6/uL (4.00-5.40); WHITE BLOOD COUNT 7.8 10^3/uL (4.0-10.0)
[2024-06-15 09:28] LABS: INR 0.88; PROTHROMBIN TIME 12.2 SECONDS (12.5-14.5)
[2024-06-15 09:48] LABS: ERYTHROCYTE SEDIMENTATION RATE 21 mm/hr (0-30)
[2024-06-15 09:49] LABS: ALBUMIN 3.5 G/DL (3.2-5.2); BILIRUBIN,TOTAL 0.9 MG/DL (0.3-1.2); CALCIUM LEVEL 9.3 MG/DL (8.3-10.6); CREATININE FOR GFR 1.03 MG/DL (0.55-1.30); GLOMERULAR FILTRATION RATE 57.1 (>45); POTASSIUM SERUM 4.3 MMOL/L (3.5-5.1); TOTAL PROTEIN 6.7 G/DL (5.7-8.2)
== END ==
LOC: M RAD 08:28
PROVIDERS: ATTEND Orthopaedic Surgery
DX: Z01.82 Encounter for allergy testing (principal); Z79.01 Long term (current) use of anticoagulants

== ENCOUNTER → 2024-09-25 | Outpatient (CLI) | payer MEDICARE, BC | LOC: M ADAMS 11:33 | PROVIDERS: ATTEND Urology | DX: N20.0 Calculus of kidney (principal) ==

== ENCOUNTER → 2024-10-09 | Outpatient (CLI) | payer MEDICARE, BC | LOC: M WHC 09:10 | PROVIDERS: ATTEND Physician Assistant | DX: Z12.31 Encounter for screening mammogram for malignant neoplasm of breast (principal) ==

== ENCOUNTER → 2024-11-06 | Outpatient (REF) | payer MEDICARE, BC ==
[2024-11-06 17:32] LABS: ALBUMIN 3.5 G/DL (3.2-5.2); BILIRUBIN,TOTAL 0.8 MG/DL (0.3-1.2); CALCIUM LEVEL 8.9 MG/DL (8.3-10.6); CHOLESTEROL RISK RATIO 2.72 (<5); CREATININE FOR GFR 1.16 MG/DL (0.55-1.30); FREE T4 1.17 NG/DL (0.89-1.76); HDL CHOLESTEROL 73.4 MG/DL (>40); LDL CHOLESTEROL 69.2 MG/DL (<100); MAGNESIUM LEVEL 1.7 MG/DL (1.8-2.4); NON-HDL-C 126.6 MG/DL; POTASSIUM SERUM 4.6 MMOL/L (3.5-5.1); THYROID STIMULATING HORMONE 0.817 uIU/ML (0.55-4.78); TOTAL PROTEIN 6.6 G/DL (5.7-8.2)
[2024-11-06 17:36] LABS: BASO # 0.1 10^3/uL (0.0-0.2); BASO % 1.1 % (0.0-1.0); EOS # 0.5 10^3/uL (0.0-0.5); EOS % 5.2 % (0.0-3.0); HEMATOCRIT 43.5 % (36.0-47.0); HEMOGLOBIN 13.9 g/dl (12.0-15.5); LYMPH # 3.6 10^3/uL (1.5-5.0); MEAN CORPUSCULAR HEMOGLOBIN 29.6 pg (27.0-33.0); MEAN CORPUSCULAR VOLUME 92.6 fl (80.0-96.0); MONO # 0.7 10^3/uL (0.0-0.8); MONO % 7.1 % (2.0-8.0); NEUTROPHILS # 4.5 10^3/uL (1.5-8.5); NEUTROPHILS % 48.3 % (36.0-66.0); PLATELET COUNT, AUTOMATED 291 10^3/uL (150-450); WHITE BLOOD COUNT 9.4 10^3/uL (4.0-10.0)
[2024-11-06 18:21] LABS: HEMOGLOBIN A1c 6.1 % (4.0-6.0)
== END ==
LOC: M SFHCADAM 10:32
PROVIDERS: ATTEND Physician Assistant
DX: E11.42 Type 2 diabetes mellitus with diabetic polyneuropathy (principal); E66.01 Morbid (severe) obesity due to excess calories; N18.31 Chronic kidney disease, stage 3a; G47.33 Obstructive sleep apnea (adult) (pediatric); K21.9 Gastro-esophageal reflux disease without esophagitis; I12.9 Hypertensive chronic kidney disease with stage 1 through stage 4 chronic kidney disease, or unspecified chronic kidney disease; E83.42 Hypomagnesemia

== ENCOUNTER → 2025-02-04 | Outpatient (CLI) | payer MEDICARE, BC ==
[~2025-02-04] MED LIST changes: +LISI40TA10 PO; -LISI40TA4 PO; -PHEN-239 PO; +PHEN37.511 PO
== END ==
LOC: M PLAIMG 09:27
PROVIDERS: ATTEND Physician Assistant
DX: R42 Dizziness and giddiness (principal)

== ENCOUNTER → 2025-02-16 | Outpatient (REF) | payer MEDICARE, BC ==
[2025-02-16 19:12] LABS: PLATELET COUNT, AUTOMATED 353 10^3/uL (150-450)
[2025-02-16 19:29] LABS: ALT/SGPT 13.0 U/L (7.0-40); AST/SGOT 18.0 U/L (<34); CALCIUM LEVEL 9.5 MG/DL (8.3-10.6); CARBON DIOXIDE LEVEL 24.0 MMOL/L (20-31); CHLORIDE LEVEL 103.0 MMOL/L (98-107); CREATININE FOR GFR 1.23 MG/DL (0.55-1.30); GLOMERULAR FILTRATION RATE 48.2 (>45); MAGNESIUM LEVEL 1.5 MG/DL (1.8-2.4); POTASSIUM SERUM 4.4 MMOL/L (3.5-5.1); SODIUM LEVEL 143.0 MMOL/L (136-145)
[2025-02-16 19:56] LABS: ESTIMATED AVERAGE GLUCOSE 126.0 MG/DL (60-110)
== END ==
LOC: M SFHCADAM 14:28
PROVIDERS: ATTEND Physician Assistant
DX: R42 Dizziness and giddiness (principal); E11.42 Type 2 diabetes mellitus with diabetic polyneuropathy

== ENCOUNTER → 2025-03-30 | Outpatient (REF) | payer MEDICARE, BC ==
[~2025-03-30] MED LIST changes: -IBUP-1022 PO; +IBUP600T42 PO
[2025-03-30 14:30] LABS: CALCIUM LEVEL 9.2 MG/DL (8.3-10.6); CARBON DIOXIDE LEVEL 26.0 MMOL/L (20-31); CHLORIDE LEVEL 107.0 MMOL/L (98-107); CREATININE FOR GFR 1.06 MG/DL (0.55-1.30); GLOMERULAR FILTRATION RATE 57.6 (>45); MAGNESIUM LEVEL 1.5 MG/DL (1.8-2.4); POTASSIUM SERUM 4.3 MMOL/L (3.5-5.1); SODIUM LEVEL 143.0 MMOL/L (136-145)
== END ==
LOC: M SFHCADAM 09:29
PROVIDERS: ATTEND Physician Assistant
DX: E83.42 Hypomagnesemia (principal); N18.31 Chronic kidney disease, stage 3a

== ENCOUNTER → 2025-05-17 | Outpatient (REF) | payer MEDICARE ==
[~2025-05-17] MED LIST changes: -ZOLP5TAB PO; +ZOLP5TAB9 PO
[2025-05-17 14:10] LABS: ALT/SGPT 13.0 U/L (7.0-40); AST/SGOT 19.0 U/L (<34); CALCIUM LEVEL 9.0 MG/DL (8.3-10.6); CARBON DIOXIDE LEVEL 25.0 MMOL/L (20-31); CHLORIDE LEVEL 104.0 MMOL/L (98-107); CREATININE FOR GFR 1.09 MG/DL (0.55-1.30); GLOMERULAR FILTRATION RATE 55.7 (>45); POTASSIUM SERUM 4.2 MMOL/L (3.5-5.1); SODIUM LEVEL 143.0 MMOL/L (136-145)
[2025-05-17 14:36] LABS: ESTIMATED AVERAGE GLUCOSE 137.0 MG/DL (60-110)
== END ==
LOC: M SFHCADAM 08:41
PROVIDERS: ATTEND Physician Assistant
DX: N18.31 Chronic kidney disease, stage 3a (principal); E11.42 Type 2 diabetes mellitus with diabetic polyneuropathy; E83.42 Hypomagnesemia; E66.01 Morbid (severe) obesity due to excess calories; Z68.38 Body mass index [BMI] 38.0-38.9, adult; F51.01 Primary insomnia; M21.961 Unspecified acquired deformity of right lower leg; M21.962 Unspecified acquired deformity of left lower leg; I12.9 Hypertensive chronic kidney disease with stage 1 through stage 4 chronic kidney disease, or unspecified chronic kidney disease; R00.0 Tachycardia, unspecified

== ENCOUNTER → 2025-05-18 | Outpatient (REF) | payer MEDICARE ==
[2025-05-18 14:13] LABS: MALB URINE SIEMENS 11.0 MG/L
[2025-05-18 14:25] LABS: CREATININE, URINE 258.1 MG/DL; MAU/CREAT RATIO 4.2 MCG/MG (0.0-30.0)
== END ==
LOC: M SFHCADAM 13:06
PROVIDERS: ATTEND Physician Assistant
DX: N18.31 Chronic kidney disease, stage 3a (principal); E11.42 Type 2 diabetes mellitus with diabetic polyneuropathy; E66.01 Morbid (severe) obesity due to excess calories; F51.01 Primary insomnia; M21.962 Unspecified acquired deformity of left lower leg; I10 Essential (primary) hypertension; R00.0 Tachycardia, unspecified; E83.42 Hypomagnesemia; Z68.38 Body mass index [BMI] 38.0-38.9, adult; E66.812 Obesity, class 2; M21.961 Unspecified acquired deformity of right lower leg